=== PATIENT | male | born 1975 | race Caucasian/White ===

== ENCOUNTER 2018-06-03 15:21 | Emergency (ER) | payer MEDICAID, SELFPAY ==
[2018-06-03 15:22] VITALS: BP 174/107; PULSE 104; RESP 16; TEMP 37.6; O2SAT 95; BMI 39.9
--- NOTE | 2018-06-03 15:39 | ED.VISSUMM ---
- ER Visit Summary Date of Service: 06/03/18 Chief Complaint: Dental pain History of Present Illness: The patient is a 42 M worsening pain left lower tooth since yesterday. Status post partial root canal along with wisdom teeth extraction in that area 4 days ago. No fevers. No hot or cold sensitivities. Did run out of his [place] yesterday, had a total of 10 tabs. Has an appointment tomorrow with the dentist. On amoxicillin status post extraction. Took Motrin before work this morning. No history of gastric ulcers or kidney injury. No difficulty swallowing. No dyspnea. Physical Examination: General: Alert and oriented ?3, no acute distress HEENT: Normocephalic, atraumatic. Moist mucosa membranes. Tender to palpation #19, missing #18. No fluctuance. No sublingual edema. Airway patent. Neck: supple, nontender. Cardiovascular: Regular rate and rhythm, no murmurs Respiratory: Normal breath sounds, symmetric, no distress Abdomen: Soft, nontender, nondistended Extremities: Nontender, no edema, pulses intact ?4 Neuro: no focal neurological deficits. Test Results: [] Emergency Department Course and Treatment: Patient nontoxic. Currently on antibiotics. Continue NSAIDs.OARRS report does confirm is 10 tabs from 4 days ago. Additional prescription 10 tabs to use as needed along with continue his NSAIDs. He will keep his dentist appointment tomorrow. Treatment Plan: [] Disposition: Discharge Impression: 1. Dentalgia This note was generated with [employer] dictation software. It may contain incorrect words, spelling, and punctuation that were not noted in review of the chart prior to signing ED Disposition - Plan for ED Patient: Disposition: Home or Assisted Living Chief Complaint: Dental Diagnosis: Dentalgia Instructions: ED Tooth Pain Prescriptions: Hydrocodone Bitart/Apap 5-325 [[place] 5MG-325MG] 1 tablet PO Q6H PRN PRN 3 Days #10 tablet PRN Reason: Pain Referrals: Joaquín Storm MD [Primary Care Provider] - Additional Instructions: Continuing your Motrin, take additional medication as needed. Keep your appointment tomorrow.
--- NOTE | 2018-06-03 15:43 | ED.DCSUM_ITS ---
- ER Visit Summary Date of Service: 06/03/18 Chief Complaint: Dental pain History of Present Illness: The patient is a 42 M worsening pain left lower tooth since yesterday. Status post partial root canal along with wisdom teeth extraction in that area 4 days ago. No fevers. No hot or cold sensitivities. Did run out of his [place] yesterday, had a total of 10 tabs. Has an appointment tomorrow with the dentist. On amoxicillin status post extraction. Took Motrin before work this morning. No history of gastric ulcers or kidney injury. No difficulty swallowing. No dyspnea. Physical Examination: General: Alert and oriented ?3, no acute distress HEENT: Normocephalic, atraumatic. Moist mucosa membranes. Tender to palpation #19, missing #18. No fluctuance. No sublingual edema. Airway patent. Neck: supple, nontender. Cardiovascular: Regular rate and rhythm, no murmurs Respiratory: Normal breath sounds, symmetric, no distress Abdomen: Soft, nontender, nondistended Extremities: Nontender, no edema, pulses intact ?4 Neuro: no focal neurological deficits. Test Results: [] Emergency Department Course and Treatment: Patient nontoxic. Currently on antibiotics. Continue NSAIDs.OARRS report does confirm is 10 tabs from 4 days ago. Additional prescription 10 tabs to use as needed along with continue his NSAIDs. He will keep his dentist appointment tomorrow. Treatment Plan: [] Disposition: Discharge Impression: 1. Dentalgia This note was generated with [employer] dictation software. It may contain incorrect words, spelling, and punctuation that were not noted in review of the chart prior to signing ED Disposition - Plan for ED Patient: Disposition: Home or Assisted Living Chief Complaint: Dental Diagnosis: Dentalgia Instructions: ED Tooth Pain Prescriptions: Hydrocodone Bitart/Apap 5-325 [[place] 5MG-325MG] 1 tablet PO Q6H PRN PRN 3 Days #10 tablet PRN Reason: Pain Referrals: Joaquín Storm MD [Primary Care Provider] - Additional Instructions: Continuing your Motrin, take additional medication as needed. Keep your appointment tomorrow.
[2018-06-03] MEDS: Ibuprofen 600 MG Tablet PO (15:45)
[2018-06-03] MEDS: HYDROcodone Bitartrate/Apap 5/325 Tablet PO (15:45)
[2018-06-03 16:19] VITALS: PULSE 96; RESP 16; O2SAT 97
== END 2018-06-03 16:20 | disposition home or self-care (01) ==
PROVIDERS: Emergency Provider Emergency Medicine; Family Provider Internal Medicine; PCP Internal Medicine
DX: K02.9 Dental caries, unspecified (principal)
CPT/HCPCS: 99283

== ENCOUNTER 2019-02-21 16:15 | Observation (INO) | payer SELFPAY ==
[2019-02-21] VITALS (8 sets, daily range): BP systolic 138–158; BP diastolic 82–93; PULSE 86–101; RESP 16–23; TEMP 36.8–37.3; O2SAT 90–99; BMI 43.0; BMI 39.9
--- NOTE | 2019-02-21 16:28 | EKG12_ITS ---
Test Reason : GENERAL ILLNESS Blood Pressure : / mmHG Vent. Rate : 098 BPM Atrial Rate : 098 BPM P-R Int : 142 ms QRS Dur : 098 ms QT Int : 370 ms P-R-T Axes : 040 -28 051 degrees QTc Int : 472 ms Normal sinus rhythm Moderate voltage criteria for LVH, may be normal variant Poor R-Wave Progression Borderline ECG Confirmed by DANIEL ACOSTA, RYAN ([id number]), magazine editor JUDE ALCARAZ ([id number]) on 02/25/2019 1:40:18 PM Referred By: Nicole Amador Confirmed By:RYAN SANCHEZ MD
--- NOTE | 2019-02-21 16:34 | ED.VISSUMM ---
- ER Visit Summary Date of Service: 02/21/19 Chief Complaint: Vomiting and overheated History of Present Illness: The patient is a 43 M who denies any significant medical history. He tells me that today he was in his usual state of health. He went to [place] [employer] and [place] lunch. Afterwards he took the kids and attempted to climb a steep hill. He states he was getting exhausted lightheaded short of breath he was eventually able to get back down but not well behind the children. When he got back to the [facility] he ended up vomiting. Family states he seemed confused and was not acting his normal self. EMS notes his blood sugar was elevated to 300 range. He denies a history of diabetes. He states he quit smoking in May. Since that time he has had dyspnea and phlegm production. While exerting himself denies any chest pain. Physical Examination: Afebrile noted slight tachycardia at 101 stable blood pressure Gen: Well-nourished well-developed obese Head: Normocephalic atraumatic Eyes: Perrl EOMI ENT: TMs clear no rhinorrhea moist mucous membranes Neck: Supple no lymphadenopathy no JVD nontender CVS: Regular rate tachycardic rhythm no murmurs normal S1-S2 Respiratory: No distress clear to auscultation bilaterally chest nontender Abdomen: Soft nontender nondistended normal bowel sounds no masses Back: Nontender Extremity: Nontender no edema Skin: Normal color no rash Neuro: alert orientated ?3 CN II-XII intact normal strength sensation Psych: Normal affect normal mood Test Results: Prehospital EKGs were reviewed. EKG done here in the emergency department demonstrates a sinus rhythm at a rate of 98. There is no ectopy. No concerning ST segments. CBC is normal. Chemistry showed a glucose of 446. Liver enzymes slightly elevated with total bilirubin of 1.2 direct bilirubin of 0.56 AST of 313 ALT of 186 alk phos of 114. Lactic acid slightly elevated 3.4 total body CK at 865 and troponin is negative. Chest x-ray is also negative for acute findings. Emergency Department Course and Treatment: Patient received 2 L of IV fluids. I believe the patient should be admitted. Patient declines admission. He states there is things he needs to do and he does not have health insurance. I strongly advised the patient to reconsider as I feel he is making a bad decision but he appears to have capacity to make this decision. He does not have anybody to follow-up with stating that he is going to go to urgent care to follow-up. I will refer him to a primary care physician. As far as the mild rhabdo and the elevated lactic acid resolved was likely due to his exertion and the degree of heat exhaustion. He needs to drink fluids until his urine is nice and clear. As far as the new onset diabetes. Ideally metformin would be an option for him. I do not wish him to start this medication until he is properly hydrated given the side effect profile of metformin particularly the elevated lactic acid. Patient understands this. He is of the understanding that he may return at any time. When we went to sign him out AMA he now states that he does not wish to sign out AMA that he would like to be admitted. Impression: 1. New onset diabetes 2. Mild rhabdomyolysis 3. Heat exhaustion 4. Elevated lactic acid 5. Critical care time 35 minutes This note was generated with [employer] dictation software. It may contain incorrect words, spelling, and punctuation that were not noted in review of the chart prior to signing Capacity - Capacity Assessment Tool Can the patient make a choice & communicate that choice?: Yes Can the patient understand benefits, risks and alternatives?: Yes Can the patient make a logical, rational choice?: Yes Is the choice the patient makes consistent w/ their values?: Yes Is there an impending, emergent risk to the patient?: Yes Does the patient have an Advance Directive?: No Is there a Surrogate Available?: No i.e. HCPOA: No i.e. close relative (spouse, child, parent, sibling)?: No ED Disposition - Plan for ED Patient: Disposition: Against Medical Advice Instructions: Resources for People with Diabetes, What Is Type 2 Diabetes?, Oral Therapy for Type 2 Diabetes, Rhabdomyolysis Prescriptions: metFORMIN HCl [Glucophage] 500 mg PO BIDCM #28 tab Prescription Printed Referrals: Parisa Verdin [NON-STAFF] - As soon as possible Additional Instructions: Do not start the metformin for at least 24 hours. Please drink enough WATER so that your urine is clear. In your condition metformin can make things worse. This is why you should delay taking it until you are properly hydrated. Please return to the emergency department at any time for repeat evaluation. You have been referred to the [facility]. You do not have to have health insurance to see them. If your diabetes goes untreated you will from it.
--- NOTE | 2019-02-21 16:45 | RAD_ITS ---
STUDY: X-RAY CHEST REASON FOR EXAM: Male, 43 years old. Cough TECHNIQUE: Single frontal view of the chest. COMPARISON: None. FINDINGS: The lungs are clear and expanded. There is no demonstrated pleural abnormality. Normal size heart. Normal mediastinum and terrie. Normal visualized pulmonary arteries. Normal visualized aortic arch and descending thoracic aorta. Normal visualized thoracic spine. Normal visualized ribs, clavicles, and shoulders. There is no demonstrated abnormality of the visualized soft tissue structures of the upper abdomen. RAD/Chest 1 View (Portable) IMPRESSION: Normal x-ray examination of the chest. Electronically Signed: Eyad Salinas MD at 17:49 EDT , Service support ,
[2019-02-21 16:46] LABS: Absolute Lymphocyte Count 1.35 X10^3/ul (0.83-4.51); Basophil# 0.03 X10^3/uL; Basophil% 0.5 % (0-1); Eosinophil# 0.16 X10^3/uL; Eosinophils% 2.6 % (0-5); Hematocrit 44.1 % (40-54); Hemoglobin 15.5 g/dl (13.0-16.5); Lymphocyte # 1.35 X10^3/ul (4.0); Mean Corp Hgb Conc 35.1 g/gl (32-36); Mean Corpuscular Hgb 33.8 pg (27.0-32.0); Mean Corpuscular Volume 96.1 fL (80-94); Mean Platelet Vol. 11.7 fl (6.2-12.0); Monocyte# 0.63 X10^3/uL; Monocyte% 10.3 % (0-10); Neutrophil # 3.95 X10^3/uL (2.7-7.7); Neutrophil % 64.4 % (47-70); POSITIVE COUNT NO; POSITIVE DIFFERENTIAL NO; POSITIVE MORPHOLOGY NO; Platelet Count 139 K/mm3 (150-450); RBC Distribution Width CV 12.9 % (11.6-14.6); Red Blood Count 4.59 M/mm3 (4.6-6.2); White Blood Count 6.1 K/mm3 (4.4-11.0)
[2019-02-21 16:53] LABS: International Normalized Ratio 1.3; Partial Thromboplast Time 29.2 Seconds (24.1-36.2); Prothrombin Time (Protime)PT. 16.3 SECONDS (11.7-14.9)
[2019-02-21] MEDS: 0.9% Normal Saline 1,000 ML 1000 ML IV (16:53)
[2019-02-21 17:00] LABS: AST(SGOT) 313 U/L (15-37); Alanine Aminotransfer ALT/SGPT 186 U/L (16-61); Albumin, Serum 3.5 g/dL (3.2-5.0); Alkaline Phosphatase 114 U/L (45-117); Anion Gap 7 (5-15); BUN 9 mg/dL (7-18); BUN/Creat Ratio 7.2 RATIO (10-20); Bilirubin, Direct 0.56 mg/dL (0.00-0.30); Calcium,Total 8.1 mg/dL (8.5-10.1); Chloride 100 mmol/L (98-107); Creatinine, Serum 1.25 mg/dL (0.70-1.30); EST Glomerular Filtration Rate 67 mL/min (>60); Est Glom Filt Rate - Afr Amer 81 mL/min (>60); Estimated Creatinine Clearance 77.87 ml/min; Globulin 4.1 g/dL (2.2-4.2); Glucose 446 mg/dL (74-106); Lipase 300 U/L (73-393); Potassium 4.2 mmol/L (3.5-5.1); Protein, Total 7.6 g/dL (6.4-8.2); Sodium Level 134 mmol/L (136-145)
[2019-02-21 17:09] LABS: CPK Total, Creatine Kinase 865 U/L (39-308)
[2019-02-21 17:21] LABS: Lactic Acid 3.4 mmol/L (0.4-2.0)
[2019-02-21 17:22] LABS: Mucous, Urine 0 SEEN /hpf (<or=2+); Red Blood Cells-Urine 0 SEEN /hpf (0-5); Squamous Epithelial Cells - UA 0 SEEN /hpf (0-5)
[2019-02-21 17:25] LABS: Color, Urine Yellow (Yellow); Glucose, Dipstick 1000 mg/dl (Normal); Ketone-Dipstick 5 mg/dl (Negative); Leukocyte Esterase-Dipstick Negative /ul (Negative); Nitrite-Dipstick Negative (Negative); Occult Blood-Urine Negative /ul (Negative); Protein-Dipstick Negative (Negative); Specific Gravity, Urine 1.015 (1.002-1.030); Urine Bilirubin Dipstick Negative (Negative); Urine Clarity Clear (Clear); Urine Urobilinogen 1 mg/dl (Normal)
--- NOTE | 2019-02-21 17:25 | ED.RN ---
lactic acid reported from lab. dr limon notified
[2019-02-21 17:52] LABS: Bacteria RARE /hpf (None Seen); White Blood Cells 0-5 SEEN /hpf (0-5)
[2019-02-21] MEDS: 0.9% Normal Saline 1,000 ML 999 ML IV (17:56)
--- NOTE | 2019-02-21 18:54 | HP.PCM_ITS ---
History of Present Illness Date of Admission: 02/21/19 Chief Complaint: Altered mental status, weakness The patient is a 43 year old M with a past medical history of alcohol and nicotine abuse. He was admitted through the ED on 02/21/2019 with a complaint of altered mental status and weakness. Patient was out with his sister and her family to celebrate Day. He was running around with her children but subsequently started feeling very tired and weak and sister said he looked like he was shaking. He was confused and incoherent for a bit. Family called the EMS and he was brought in. Patient denied any history of fever or chills but admitted to urinating very frequently and drinking lots of water. He denies any chest pain or palpitations, dizziness, but admitted to vomiting with onset of symptoms. Review of symptoms of otherwise negative. On admission, temperature was 99.2 Fahrenheit with respiratory rate of 20 and mildly elevated blood pressure of 158/83. Labs are significant for glucose of 446 with lactic acid of 3.4 and total bilirubin of 1.2 feels mainly a direct bilirubinemia. AST and ALT were also mildly elevated. Total CPK was mildly elevated at 865 initial troponin was less than 0.015. Chest x-ray showed no acute cardiopulmonary process. EKG showed no acute ST changes. CBC was also unremarkable. He has been admitted to be managed for hypoglycemia and a newly diagnosed diabetic as well as mild rhabdomyolysis. Past Medical History Allergies No Known Allergies Allergy (Verified 02/21/19 16:20) Home Medications: Ambulatory Orders Medication Instructions Recorded metFORMIN HCl [Glucophage] 500 mg PO BIDCM #28 tab 02/21/19 Surgical History: no surgical history Psychiatric History: No pertinent psych hx Lives: Spouse/ Significant Other Smoking Status: Former smoker - quit May 2018 Alcohol: Heavy - drinks >1 pack of 24 oz cans daily - *Family History Maternal History Items: Heart Disease Review of Systems Constitutional: Reports: Weakness, Fatigue. Denies: Anorexia, Chills, Fever Eyes: Denies: Blurred vision HEENT: Denies: Head Aches, Sinus Congestion, Sinus Drainage Cardiovascular: Denies: Chest Pain, Chest Tightness, Palpitations Respiratory: Denies: Cough, Shortness of Breath, Shortness of breath at rest, Shortness of breath upon exertion, Sputum production Gastrointestinal: Denies: Abdominal Pain, Nausea, Vomiting Genitourinary: Reports: Frequency, - - polyuria. Denies: Dysuria, Hematuria, Incontinence, Nocturia, Retention, Urgency Musculoskeletal: Denies: Joint Pain, Joint Tenderness Skin: Denies: Rash, Wounds Neurological: Denies: Numbness, Tingling, Focal weakness Psychiatric: Denies: Anxiety, Depression, Homicidal Ideations, Suicidal Ideations Hematologic/ Lymphatic: Denies: Easy Bruising, Easy Bleeding VTE Information - Inpt Only VTE Present on Admission: No VTE Pharm Prophylaxis ordered?: Yes - Physical Exam General: Alert, Oriented x3, Cooperative, No apparent distress, - - obese HEENT: Atraumatic, PERRLA, EOMI, Normocephalic Oral: Dry Mucosa Neck: Supple, No JVD, Negative Carotid Bruits Lungs: Clear to auscultation, Normal air movement Cardiovascular: Regular rate, Regular Rhythm, Normal S1, Normal S2, No murmurs Abdomen: Bowel Sounds Present, Soft, Non Tender, Non-Distended, No Hepato- splenomegaly Extremities: No clubbing, No cyanosis, No edema, Capillary Refill Less than 3 Seconds Skin: No rashes, No breakdown Musculoskeletal: No Tenderness to Palpation of Joints or Extremities Lymphatic: No Cervical, Supraclavicular, or Inguinal Adenopathy Neurological: Cranial nerves II-XII grossly intact, Neuro grossly intact, Motor Exam 5/5 strength throughout Psych/Mental Status: Normal Affect, Appropriate, Alert and oriented to time, place, person, mood and affect Vital Signs Temp Pulse Resp BP Pulse Ox 99.2 F H 90 18 149/88 H 98 02/21/19 16:16 02/21/19 17:46 02/21/19 17:46 02/21/19 17:46 02/21/19 17:46 Oxygen Delivery Method Room Air Weight: 300 lb Body Mass Index (BMI) 43.0 Laboratory Tests Past 24 Hrs 02/21/19 02/21/19 02/21/19 16:30 16:30 16:30 WBC 6.1 RBC 4.59 L Hgb 15.5 Hct 44.1 MCV 96.1 H MCH 33.8 H MCHC 35.1 RDW 12.9 RDW Differential 45.0 H Plt Count 139 L MPV 11.7 Immature Gran % (Auto) 0.200 Neut % (Auto) 64.4 Lymph % (Auto) 22.0 [place] % (Auto) 10.3 H Eos % (Auto) 2.6 Baso % (Auto) 0.5 Absolute Neuts (auto) 4.0 Absolute Lymphs (auto) 1.35 Total Counted Not Reportable PT 16.3 H INR 1.3 APTT 29.2 Sodium 134 L Potassium 4.2 Chloride 100 Carbon Dioxide 27.0 Anion Gap 7 BUN 9 Creatinine 1.25 Estim Creat Clear Calc 77.87 Est GFR (MDRD) Af Amer 81 Est GFR (MDRD) Non-Af 67 BUN/Creatinine Ratio 7.2 L Glucose 446 H Lactic Acid Calcium 8.1 L Total Bilirubin 1.20 H Direct Bilirubin 0.56 H AST 313 H ALT 186 H Alkaline Phosphatase 114 Total Creatine Kinase Troponin I < 0.015 Total Protein 7.6 Albumin 3.5 Globulin 4.1 Lipase 300 Urine Color Urine Clarity Urine pH Ur Specific [place] Urine Protein Urine Glucose (UA) Urine Ketones Urine Occult Blood Urine Nitrite Urine Bilirubin Urine Urobilinogen Ur Leukocyte Esterase Urine RBC Urine WBC Ur Squamous Epith Cells Urine Bacteria Urine Mucus 02/21/19 02/21/19 02/21/19 16:30 16:30 17:16 WBC RBC Hgb Hct MCV MCH MCHC RDW RDW Differential Plt Count MPV Immature Gran % (Auto) Neut % (Auto) Lymph % (Auto) [place] % (Auto) Eos % (Auto) Baso % (Auto) Absolute Neuts (auto) Absolute Lymphs (auto) Total Counted PT INR APTT Sodium Potassium Chloride Carbon Dioxide Anion Gap BUN Creatinine Estim Creat Clear Calc Est GFR (MDRD) Af Amer Est GFR (MDRD) Non-Af BUN/Creatinine Ratio Glucose Lactic Acid 3.4 H Calcium Total Bilirubin Direct Bilirubin AST ALT Alkaline Phosphatase Total Creatine Kinase 865 H Troponin I Total Protein Albumin Globulin Lipase Urine Color Yellow Urine Clarity Clear Urine pH 6.0 Ur Specific [place] 1.015 Urine Protein Negative Urine Glucose (UA) 1000 H Urine Ketones 5 H Urine Occult Blood Negative Urine Nitrite Negative Urine Bilirubin Negative Urine Urobilinogen 1 H Ur Leukocyte Esterase Negative Urine RBC 0 SEEN Urine WBC 0-5 SEEN Ur Squamous Epith Cells 0 SEEN Urine Bacteria RARE Urine Mucus 0 SEEN Diagnostic Data Chest X-Ray 02/21/19 16:45 IMPRESSION: Normal x-ray examination of the chest. Electronically Signed: Eyad Salinas MD at 17:49 EDT , Service support , Assessment/Plan 43-year-old male admitted with a complaint of vomiting and altered mental status and found to have elevated blood glucose and mildly elevated CPK. 1. Hyperglycemia in a newly diagnosed diabetic. * Blood glucose was 446 on admission. Has been having symptoms of polyuria and frequency of urination. * Admit to [facility] with telemetry. * Check A1c. * Start insulin sliding scale. * On account of elevated lactic acid, will hold off on starting metformin now until lactic acid and liver function improves. * Continue hydrating with normal saline * Accu-Cheks before meals at bedtime. * To be started on oral medication or insulin as per A1c once elevated liver enzymes and lactic acid corrects. * check lipid panel * check troponins also in light of obesity and history of smoking * 2. Rhabdomyolysis: mild. CPK is 865. WIll hydrate with IVF and monitor 3. Elevated lactic acid: Lactic acid was 3.4. May be due to dehydration from hyperglycemia. Will hydrate with IV fluids and repeat lactic acid 4. SIRS criteria: * Patient was tachycardic on admission with heart rate of 101 as well as tachypnea with respiratory rate of 20. He also had a mildly elevated temperature of 99.2F * He also had elevated lactic acid of 3.4, therefore meeting criteria for severe sepsis * Though he does meet SIRS criteria for sepsis, I think it is more likely physiologic reaction due to the hyperglycemia and newly diagnosed diabetes. There is no obvious source of infection as UA was negative and chest x-ray showed no acute cardiopulmonary process. * Will order blood cultures but hold off on antibiotics for now. * repeat lactic acid * 5. Elevated liver enzymes. * Total bilirubin was 1.2 with direct bilirubin of 0.56 and AST of 3.13 as well as ALT of 1.86. * His history of chronic alcoholism may play a role here as well. Will monitor and trend. 6. Chronic alcoholism. * Patient drinks very heavily and drinks at least a sixpack of 24 ounce cans daily. * Last drink was early this morning when he drank about 6 cans. * He has been through detox before which was last year but he started drinking again on account of family problems. * Will put on alcohol withdrawal protocol with Ativan. * DVT prophylaxis: Heparin GI prophylaxis: Pantoprazole. Code Visit OBSV E&M: 46178 Initial observation care L3
[2019-02-21] MEDS: 0.9% Normal Saline 1,000 ML 200 ML IV ×2 (19:40→22:28)
[2019-02-21 20:39] LABS: Reflex Lactate? Y
[2019-02-21 21:03] LABS: Cholesterol 127 mg/dL (200); Hemoglobin A1c 8.5 % (4.2-6.3); High Density Lipoprotein 18 mg/dL; Triglycerides 242 mg/dL; Very Low Density Lipoprotein 48 mg/dL (5-40)
[2019-02-21 21:53] LABS: Lactic Acid 2.2 mmol/L (0.4-2.0)
[2019-02-21] MEDS: Insulin Lispro 100 UNIT/ML INSULN.PEN SC (22:31)
[2019-02-22] MEDS: Insulin Lispro 100 UNIT/ML INSULN.PEN SC ×3 (01:36→10:18)
[2019-02-22 01:39] VITALS: BP 139/80; PULSE 70; RESP 18; TEMP 37; O2SAT 96
[2019-02-22 01:52] VITALS: PULSE 79
[2019-02-22] MEDS: 0.9% Normal Saline 1,000 ML 200 ML IV (03:24)
[2019-02-22 05:33] VITALS: PULSE 63
[2019-02-22 05:47] VITALS: BP 132/91; PULSE 68; RESP 18; TEMP 36.7; O2SAT 96
[2019-02-22 07:10] LABS: Absolute Lymphocyte Count 1.01 X10^3/ul (0.83-4.51); Absolute Neutrophil Count 2.3 X10^3/uL (2.0-7.7); Basophil# 0.02 X10^3/uL; Basophil% 0.5 % (0-1); Eosinophil# 0.11 X10^3/uL; Eosinophils% 2.8 % (0-5); Hematocrit 42.6 % (40-54); Hemoglobin 14.5 g/dl (13.0-16.5); Lymphocyte # 1.01 X10^3/ul (4.0); Lymphocyte % 25.7 % (19-41); Mean Corpuscular Hgb 32.7 pg (27.0-32.0); Mean Corpuscular Volume 96.2 fL (80-94); Mean Platelet Vol. 11.7 fl (6.2-12.0); Monocyte# 0.47 X10^3/uL; Neutrophil # 2.32 X10^3/uL (2.7-7.7); POSITIVE COUNT NO; POSITIVE DIFFERENTIAL NO; POSITIVE MORPHOLOGY NO; Platelet Count 93 K/mm3 (150-450); RBC Distribution Width CV 12.8 % (11.6-14.6); RBC Distribution Width SD 44.7 fl (35.1-43.9); Red Blood Count 4.43 M/mm3 (4.6-6.2); White Blood Count 3.9 K/mm3 (4.4-11.0)
--- NOTE | 2019-02-22 07:13 | PN_ITS ---
Patient Problems: Active and Suspected Problems Rhabdomyolysis (Acute) Diabetes mellitus, new onset (Acute) Subjective: Patient is a 43-year-old gentleman admitted with altered mental status and vomiting. Patient was found to have newly diagnosed diabetes mellitus type 2. He was also found to have elevated CPK consistent with rhabdomyolysis admitted to regular nursing floor for further management Objective: GENERAL: cooperative HEENT: Atraumatic; moist oral mucosa EYES; Anicteric, Normal Conjunctiva NECK; supple, normal thyroid, no distended JVD. RESPIRATORY: Diminished to auscultation bilaterally, CARDIOVASCULAR: Regular S1 S2, no audible murmurs GI: soft, non-tender, normoactive bowel sounds, : No Renal angle tenderness; EXTREMITIES: No edema, no clubbing, no cyanosis. MUSCULOSKELETAL: No Joint Tenderness; no muscle waisting NEURO: Awake; no lateralizing signs. SKIN: No Rash PSYCH; Normal affect Vitals/I&O's: Vital Signs Temp Pulse Resp BP Pulse Ox 98.1 F 68 18 132/91 H 96 02/22/19 05:47 02/22/19 05:47 02/22/19 05:47 02/22/19 05:47 02/22/19 05:47 Oxygen Flow Rate (L/min) 2 Oxygen Delivery Method Room Air Weight: 127.941 kg Body Mass Index (BMI) 39.9 Intake and Output for Last 24 Hours 02/20/19 02/21/19 02/22/19 23:59 23:59 23:59 Intake Total 1447 / 1447 1283 / 1283 Output Total 700 / 700 1350 / 1350 Balance 747 / 747 -67 / -67 Laboratory Results 02/21/19 16:30: WBC 6.1, RBC 4.59 L, Hgb 15.5, Hct 44.1, MCV 96.1 H, MCH 33.8 H, MCHC 35.1, RDW 12.9, RDW Differential 45.0 H, Plt Count 139 L, MPV 11.7, Immature Gran % (Auto) 0.200, Neut % (Auto) 64.4, Lymph % (Auto) 22.0, Ward % (Auto) 10.3 H, Eos % (Auto) 2.6, Baso % (Auto) 0.5, Absolute Neuts (auto) 4.0, Absolute Lymphs (auto) 1.35, Total Counted Not Reportable 02/21/19 16:30: PT 16.3 H, INR 1.3, APTT 29.2 02/21/19 16:30: Sodium 134 L, Potassium 4.2, Chloride 100, Carbon Dioxide 27.0, Anion Gap 7, BUN 9, Creatinine 1.25, Estim Creat Clear Calc 77.87, Est GFR (MDRD) Af Amer 81, Est GFR (MDRD) Non-Af 67, BUN/Creatinine Ratio 7.2 L, Glucose 446 H, Calcium 8.1 L, Total Bilirubin 1.20 H, Direct Bilirubin 0.56 H, AST 313 H , ALT 186 H, Alkaline Phosphatase 114, Troponin I < 0.015, Total Protein 7.6, Albumin 3.5, Globulin 4.1, Lipase 300 02/21/19 16:30: Lactic Acid 3.4 H 02/21/19 16:30: Total Creatine Kinase 865 H 02/21/19 17:16: Urine Color Yellow, Urine Clarity Clear, Urine pH 6.0, Ur Specific [place] 1.015, Urine Protein Negative, Urine Glucose (UA) 1000 H, Urine Ketones 5 H, Urine Occult Blood Negative, Urine Nitrite Negative, Urine Bilir ubin Negative, Urine Urobilinogen 1 H, Ur Leukocyte Esterase Negative, Urine RBC 0 SEEN, Urine WBC 0-5 SEEN, Ur Squamous Epith Cells 0 SEEN, Urine Bacteria RARE, Urine Mucus 0 SEEN 02/21/19 20:24: Hemoglobin A1c 8.5 H 02/21/19 20:24: Triglycerides 242 H, Cholesterol 127, LDL Cholesterol 61, VLDL Cholesterol 48 H, HDL Cholesterol 18 L 02/21/19 21:02: Lactic Acid 2.2 H 02/22/19 06:29: WBC 3.9 L, RBC 4.43 L, Hgb 14.5, Hct 42.6, MCV 96.2 H, MCH 32.7 H, MCHC 34.0, RDW 12.8, RDW Differential 44.7 H, Plt Count 93 L, MPV 11.7, Immature Gran % (Auto) 0.000, Neut % (Auto) 59.0, Lymph % (Auto) 25.7, Ward % (Auto) 12.0 H, Eos % (Auto) 2.8, Baso % (Auto) 0.5, Absolute Neuts (auto) 2.3, Absolute Lymphs (auto) 1.01, Total Counted Not Reportable 02/22/19 06:29: Sodium Pending, Potassium Pending, Chloride Pending, Carbon Dioxide Pending, Anion Gap Pending, BUN Pending, Creatinine Pending, Est GFR (MDRD) Af Amer Pending, Est GFR (MDRD) Non-Af Pending, BUN/Creatinine Ratio Pending, Glucose Pending, Calcium Pending, Total Bilirubin Pending, AST Pending, ALT Pending, Alkaline Phosphatase Pending, Total Protein Pending, Albumin P ending Current Medications Dextrose (D50w Syringe) 0 gm IV X1 PRN; Protocol PRN Reason: Hypoglycemia Enoxaparin Sodium (Lovenox) 40 mg SC DAILY@1000 ÁNGEL Folic Acid (Folic Acid) 1 mg PO DAILY@0800 [facility] Stop: 02/24/19 08:01 Glucagon () 1 mg IM .X1 PRN PRN Reason: Hypoglycemia Sodium Chloride () 1,000 mls @ 200 mls/hr IV .Q5H [facility] Stop: 02/22/19 10:38 Last Admin: 02/22/19 03:24 Dose: 200 mls/hr Documented by: Insulin Glargine (Lantus ([facility])) 10 units SC QHS [facility] Last Admin: 02/21/19 22:33 Dose: 10 u Documented by: Insulin Human Lispro (Humalog Kwikpen ([facility])) 0 unit SC Q4 [facility]; Protocol Last Admin: 02/22/19 05:45 Dose: 3 u Documented by: Lorazepam (Ativan) 2 mg PO Q2H PRN PRN; Protocol PRN Reason: CIWA score > 8 but <15 Lorazepam (Ativan) 2 mg PO UD PRN; Protocol PRN Reason: CIWA score >/=15. Lorazepam (Ativan) 2 mg IV Q2H PRN PRN; Protocol PRN Reason: CIWA score > 8 but <15 Lorazepam (Ativan) 2 mg IV UD PRN; Protocol PRN Reason: CIWA score >/=15. Multivitamins/Minerals (Multivitamin With Minerals) [facility] Sodium Chloride () 10 - 40 ml IV UD PRN PRN Reason: SALINE FLUSH Thiamine HCl (Vitamin B1) 100 mg PO BIDCM [facility] Stop: 02/24/19 17:01 Medical Necessity - Tobacco Use Smoking Status: Former smoker Assessment/Plan All Active Problems Rhabdomyolysis (Acute) Diabetes mellitus, new onset (Acute) Patient is a 43-year-old gentleman admitted with altered mental status and vomiting. Patient was found to have newly diagnosed diabetes mellitus type 2. He was also found to have elevated CPK consistent with rhabdomyolysis admitted to regular nursing floor for further management 1. New onset diabetes mellitus type 2 presenting with hyperglycemia admitted to regular nursing floor management hydration, initiation of long-acting insulin as well as Accu-Cheks before meals and at bedtime with sliding scale coverage. Consultation was placed to diabetic education service 2. Mild rhabdomyolysis CPK level on admission was 865 started on IV hydration with monitoring 3. Lactic acidosis attributed to patient diabetes as well as chronic alcohol abuse patient did not have any evidence of infection 4. Acute alcoholic hepatitis. Patient was found to have elevated transaminases with AST of 313 and ALT of 186 consistent with chronic alcohol use 5. Chronic alcohol use placed on DT precautions counseled on cessation 6. Suspected gastritis patient placed on PPI 7. DVT prophylaxis: Heparin Code Visit OBSV E&M: 71326 Subsequent observation care L3
[2019-02-22 07:42] LABS: ALB/GLOB Ratio 0.9 RATIO (0.9-2.4); AST(SGOT) 174 U/L (15-37); Alanine Aminotransfer ALT/SGPT 139 U/L (16-61); Albumin, Serum 3.1 g/dL (3.2-5.0); Alkaline Phosphatase 121 U/L (45-117); Anion Gap 7 (5-15); BUN 7 mg/dL (7-18); BUN/Creat Ratio 8.8 RATIO (10-20); Calcium,Total 7.8 mg/dL (8.5-10.1); Chloride 103 mmol/L (98-107); Creatinine, Serum 0.79 mg/dL (0.70-1.30); EST Glomerular Filtration Rate 113 mL/min (>60); Est Glom Filt Rate - Afr Amer 136 mL/min (>60); Estimated Creatinine Clearance 123.21 ml/min; Globulin 3.6 g/dL (2.2-4.2); Glucose 211 mg/dL (74-106); Potassium 3.8 mmol/L (3.5-5.1); Protein, Total 6.7 g/dL (6.4-8.2); Sodium Level 140 mmol/L (136-145)
[2019-02-22 07:54] VITALS: PULSE 68
--- NOTE | 2019-02-22 08:04 | DCINST_ITS ---
You will use the following diet at home:: Calorie/Carbohydrate Controlled (specify 1200, 1400, etc) - 1800 Your food should be the consistency of: Regular Discharge Activity: Return to Normal Activity Instructions: Resources for People with Diabetes, What Is Type 2 Diabetes?, Oral Therapy for Type 2 Diabetes, Rhabdomyolysis Allergies/Adverse Reactions: Allergies No Known Allergies Allergy (Verified 02/21/19 16:20) Medications to take at Discharge Insulin Glargine [Lantus SoloStar Pen] 10 units SUBCUT QHS #6 pen 02/22/19 Metformin HCl 1,000 mg PO BID #120 tab 02/22/19 Pantoprazole Sodium [Protonix] 40 mg PO DAILY #30 tab 02/22/19 The following prescriptions were given: Insulin Glargine [Lantus SoloStar Pen] 10 units SUBCUT QHS #6 pen Prescription Printed Metformin HCl 1,000 mg PO BID #120 tab Prescription Printed Pantoprazole Sodium [Protonix] 40 mg PO DAILY #30 tab Prescription Printed Primary Care Physician: Parisa Verdin [NON-STAFF] - As soon as possible Please follow up with your Primary Care Physician in: in 5-7 days Test Results: Test results from this visit will be discussed in further detail at your follow- up appointment, if applicable. Proposed Discharge Date: 02/22/19
--- NOTE | 2019-02-22 08:07 | PCM.DC.SUM ---
Discharge Date and Diagnosis - Problem List Patient Problems: Active and Suspected Problems Rhabdomyolysis (Acute) Diabetes mellitus, new onset (Acute) Date of Admission: 02/21/19 Date of Discharge: 02/22/19 - Primary Discharge Diagnosis Active and Suspected Problems Rhabdomyolysis (Acute) Diabetes mellitus, new onset (Acute) - Secondary Discharge Diagnosis Chronic Problems Alcohol abuse (Chronic) Obesity (Chronic) Hospital Course and Treatment Summary of Care Provided: Patient is a 43-year-old gentleman admitted with altered mental status and vomiting. Patient was found to have newly diagnosed diabetes mellitus type 2. He was also found to have elevated CPK consistent with rhabdomyolysis admitted to regular nursing floor for further management 1. New onset diabetes mellitus type 2 presenting with hyperglycemia admitted to regular nursing floor management hydration, initiation of long-acting insulin as well as Accu-Cheks before meals and at bedtime with sliding scale coverage. Consultation was placed to diabetic education service patient condition did improve at the admission he requested to be discharged prescription was written for insulin as well as metformin. Patient abdomen does not have any primary care physician he promised to call the [facility] in [place] establish a relationship with a primary care physician 2. Mild rhabdomyolysis CPK level on admission was 865 started on IV hydration with monitoring 3. Lactic acidosis attributed to patient diabetes as well as chronic alcohol abuse patient did not have any evidence of infection 4. Acute alcoholic hepatitis. Patient was found to have elevated transaminases with AST of 313 and ALT of 186 consistent with chronic alcohol use 5. Chronic alcohol use placed on DT precautions counseled on cessation 6. Suspected gastritis patient placed on PPI 7. DVT prophylaxis: Heparin Patient Problems: Active and Suspected Problems Rhabdomyolysis (Acute) Diabetes mellitus, new onset (Acute) - Physical Exam General: Alert, No apparent distress Neck: Supple Lungs: Clear to auscultation Cardiovascular: Regular rate, Regular Rhythm Psych/Mental Status: Normal Affect Vital Signs Temp Pulse Resp BP Pulse Ox 98.1 F 68 18 132/91 H 96 02/22/19 05:47 02/22/19 07:54 02/22/19 05:47 02/22/19 05:47 02/22/19 05:47 Oxygen Flow Rate (L/min) 2 Oxygen Delivery Method Room Air Weight: 127.941 kg Body Mass Index (BMI) 39.9 Intake and Output for Last 24 Hours 02/20/19 02/21/19 02/22/19 23:59 23:59 23:59 Intake Total 1447 / 1447 1283 / 1283 Output Total 700 / 700 1350 / 1350 Balance 747 / 747 -67 / -67 Laboratory Tests Past 24 Hrs 02/21/19 02/21/19 02/21/19 16:30 16:30 16:30 WBC 6.1 RBC 4.59 L Hgb 15.5 Hct 44.1 MCV 96.1 H MCH 33.8 H MCHC 35.1 RDW 12.9 RDW Differential 45.0 H Plt Count 139 L MPV 11.7 Immature Gran % (Auto) 0.200 Neut % (Auto) 64.4 Lymph % (Auto) 22.0 [place] % (Auto) 10.3 H Eos % (Auto) 2.6 Baso % (Auto) 0.5 Absolute Neuts (auto) 4.0 Absolute Lymphs (auto) 1.35 Total Counted Not Reportable PT 16.3 H INR 1.3 APTT 29.2 Sodium 134 L Potassium 4.2 Chloride 100 Carbon Dioxide 27.0 Anion Gap 7 BUN 9 Creatinine 1.25 Estim Creat Clear Calc 77.87 Est GFR (MDRD) Af Amer 81 Est GFR (MDRD) Non-Af 67 BUN/Creatinine Ratio 7.2 L Glucose 446 H Hemoglobin A1c Lactic Acid Calcium 8.1 L Total Bilirubin 1.20 H Direct Bilirubin 0.56 H AST 313 H ALT 186 H Alkaline Phosphatase 114 Total Creatine Kinase Troponin I < 0.015 Total Protein 7.6 Albumin 3.5 Globulin 4.1 Albumin/Globulin Ratio Triglycerides Cholesterol LDL Cholesterol VLDL Cholesterol HDL Cholesterol Lipase 300 Urine Color Urine Clarity Urine pH Ur Specific [place] Urine Protein Urine Glucose (UA) Urine Ketones Urine Occult Blood Urine Nitrite Urine Bilirubin Urine Urobilinogen Ur Leukocyte Esterase Urine RBC Urine WBC Ur Squamous Epith Cells Urine Bacteria Urine Mucus 02/21/19 02/21/19 02/21/19 16:30 16:30 17:16 WBC RBC Hgb Hct MCV MCH MCHC RDW RDW Differential Plt Count MPV Immature Gran % (Auto) Neut % (Auto) Lymph % (Auto) [place] % (Auto) Eos % (Auto) Baso % (Auto) Absolute Neuts (auto) Absolute Lymphs (auto) Total Counted PT INR APTT Sodium Potassium Chloride Carbon Dioxide Anion Gap BUN Creatinine Estim Creat Clear Calc Est GFR (MDRD) Af Amer Est GFR (MDRD) Non-Af BUN/Creatinine Ratio Glucose Hemoglobin A1c Lactic Acid 3.4 H Calcium Total Bilirubin Direct Bilirubin AST ALT Alkaline Phosphatase Total Creatine Kinase 865 H Troponin I Total Protein Albumin Globulin Albumin/Globulin Ratio Triglycerides Cholesterol LDL Cholesterol VLDL Cholesterol HDL Cholesterol Lipase Urine Color Yellow Urine Clarity Clear Urine pH 6.0 Ur Specific [place] 1.015 Urine Protein Negative Urine Glucose (UA) 1000 H Urine Ketones 5 H Urine Occult Blood Negative Urine Nitrite Negative Urine Bilirubin Negative Urine Urobilinogen 1 H Ur Leukocyte Esterase Negative Urine RBC 0 SEEN Urine WBC 0-5 SEEN Ur Squamous Epith Cells 0 SEEN Urine Bacteria RARE Urine Mucus 0 SEEN 02/21/19 02/21/19 02/21/19 20:24 20:24 21:02 WBC RBC Hgb Hct MCV MCH MCHC RDW RDW Differential Plt Count MPV Immature Gran % (Auto) Neut % (Auto) Lymph % (Auto) [place] % (Auto) Eos % (Auto) Baso % (Auto) Absolute Neuts (auto) Absolute Lymphs (auto) Total Counted PT INR APTT Sodium Potassium Chloride Carbon Dioxide Anion Gap BUN Creatinine Estim Creat Clear Calc Est GFR (MDRD) Af Amer Est GFR (MDRD) Non-Af BUN/Creatinine Ratio Glucose Hemoglobin A1c 8.5 H Lactic Acid 2.2 H Calcium Total Bilirubin Direct Bilirubin AST ALT Alkaline Phosphatase Total Creatine Kinase Troponin I Total Protein Albumin Globulin Albumin/Globulin Ratio Triglycerides 242 H Cholesterol 127 LDL Cholesterol 61 VLDL Cholesterol 48 H HDL Cholesterol 18 L Lipase Urine Color Urine Clarity Urine pH Ur Specific [place] Urine Protein Urine Glucose (UA) Urine Ketones Urine Occult Blood Urine Nitrite Urine Bilirubin Urine Urobilinogen Ur Leukocyte Esterase Urine RBC Urine WBC Ur Squamous Epith Cells Urine Bacteria Urine Mucus 02/22/19 02/22/19 06:29 06:29 WBC 3.9 L RBC 4.43 L Hgb 14.5 Hct 42.6 MCV 96.2 H MCH 32.7 H MCHC 34.0 RDW 12.8 RDW Differential 44.7 H Plt Count 93 L MPV 11.7 Immature Gran % (Auto) 0.000 Neut % (Auto) 59.0 Lymph % (Auto) 25.7 [place] % (Auto) 12.0 H Eos % (Auto) 2.8 Baso % (Auto) 0.5 Absolute Neuts (auto) 2.3 Absolute Lymphs (auto) 1.01 Total Counted Not Reportable PT INR APTT Sodium 140 Potassium 3.8 Chloride 103 Carbon Dioxide 30.0 Anion Gap 7 BUN 7 Creatinine 0.79 Estim Creat Clear Calc 123.21 Est GFR (MDRD) Af Amer 136 Est GFR (MDRD) Non-Af 113 BUN/Creatinine Ratio 8.8 L Glucose 211 H Hemoglobin A1c Lactic Acid Calcium 7.8 L Total Bilirubin 1.20 H Direct Bilirubin AST 174 H ALT 139 H Alkaline Phosphatase 121 H Total Creatine Kinase Troponin I Total Protein 6.7 Albumin 3.1 L Globulin 3.6 Albumin/Globulin Ratio 0.9 Triglycerides Cholesterol LDL Cholesterol VLDL Cholesterol HDL Cholesterol Lipase Urine Color Urine Clarity Urine pH Ur Specific [place] Urine Protein Urine Glucose (UA) Urine Ketones Urine Occult Blood Urine Nitrite Urine Bilirubin Urine Urobilinogen Ur Leukocyte Esterase Urine RBC Urine WBC Ur Squamous Epith Cells Urine Bacteria Urine Mucus Discharge Diet: 1800 Calorie Control Diet Discharge Activity: Return to Normal Activity Home Medications: Medications to take at Discharge Insulin Glargine [Lantus SoloStar Pen] 10 units SUBCUT QHS #6 pen 02/22/19 Metformin HCl 1,000 mg PO BID #120 tab 02/22/19 Pantoprazole Sodium [Protonix] 40 mg PO DAILY #30 tab 02/22/19 Following Prescrptions Were Given to Patient: Insulin Glargine [Lantus SoloStar Pen] 10 units SUBCUT QHS #6 pen Prescription Printed Metformin HCl 1,000 mg PO BID #120 tab Prescription Printed Pantoprazole Sodium [Protonix] 40 mg PO DAILY #30 tab Prescription Printed Primary Care Physician: Parisa Verdin [NON-STAFF] - As soon as possible Please follow up with your Primary Care Physician in: in 5-7 days Patient Instructions: Resources for People with Diabetes, What Is Type 2 Diabetes?, Oral Therapy for Type 2 Diabetes, Rhabdomyolysis Disposition: Home Minutes spent on discharge:: 35 Patient Condition:: Stable Medical Necessity - Tobacco Use Smoking Status: Former smoker Meaningful Use Info Meaningful Use Diagnoses (Choose all that apply): None applicable Code Visit OBSV E&M: 94655 Observation care discharge
[2019-02-22 08:25] VITALS: BP 137/95; PULSE 71; RESP 20; TEMP 36.7; O2SAT 98
[2019-02-22] MEDS: Thiamine Hydrochloride 100 MG Tablet PO (08:30)
[2019-02-22] MEDS: Multivitamins,Ther W-Minerals Tablet 1 TABLET PO (08:30)
[2019-02-22] MEDS: Folic Acid 1 MG Tablet PO (08:30)
[2019-02-22 10:31] LABS: Bedside Glucose 280 mg/dL (70-110)
[2019-02-22 11:55] LABS: Bedside Glucose 278 mg/dL (70-110)
[2019-02-22 11:55] LABS: Bedside Glucose 305 mg/dL (70-110)
[2019-02-22 12:00] LABS: Bedside Glucose 207 mg/dL (70-110)
== END 2019-02-22 10:27 | disposition home or self-care (01) ==
LOC: ED 18:42 → MS3 19:13
PROVIDERS: Admitting Provider Student in an Organized Health Care Education/Training Program; Emergency Provider Emergency Medicine; Referring Provider Student in an Organized Health Care Education/Training Program; Visit Provider Internal Medicine
DX: M62.82 Rhabdomyolysis (principal); E11.9 Type 2 diabetes mellitus without complications; E66.9 Obesity, unspecified; Z68.39 Body mass index [BMI] 39.0-39.9, adult; Z71.3 Dietary counseling and surveillance; Z87.891 Personal history of nicotine dependence; T67.5XXA Heat exhaustion, unspecified, initial encounter; X58.XXXA Exposure to other specified factors, initial encounter; R74.8 Abnormal levels of other serum enzymes; F10.20 Alcohol dependence, uncomplicated
CPT/HCPCS: 36415; 71045; 80048; 80053; 80061; 80076; 81001; 82550; 82962; 83036; 83605; 83690; 84484; 85025; 85610; 85730; 87040; 93005; 96360; 96361; 97802; 99218; 99285; J7030; A4216; G0378

== ENCOUNTER 2020-04-21 15:34 | Inpatient (IN) | payer MEDICAID, SELFPAY ==
[2019-02-21 19:48] VITALS: BMI 39.9
[2020-04-21 15:34] VITALS: BP 153/106; PULSE 88; RESP 18; TEMP 36.3; O2SAT 92; BMI 35.6
--- NOTE | 2020-04-21 15:50 | EKG12_ITS ---
Test Reason : DETOX Blood Pressure : / mmHG Vent. Rate : 090 BPM Atrial Rate : 090 BPM P-R Int : 154 ms QRS Dur : 100 ms QT Int : 366 ms P-R-T Axes : 030 -18 038 degrees QTc Int : 447 ms Normal sinus rhythm Normal ECG Confirmed by ELIZABET ACOSTA, YAO ([id number]), reflow operator JUDE ALCARAZ ([id number]) on 04/23/2020 10:54:12 AM Referred By: SABINO Confirmed By:AYO MCNEAL MD
--- NOTE | 2020-04-21 15:51 | ED.DCSUM_ITS ---
History of Present Illness Chief Complaint: Substance Abuse Narrative: Patient is a 44-year-old male who was brought in by a friend for alcohol detox. History is limited due to the patient's severe alcohol intoxication currently. He initially reported to me that he does not know why he is here and he does not want to be here. The friend who is with him then stated that he wants alcohol detox. I asked if this is something the patient wanted and he stated yes. He states that he was drinking beer but more recently he is drinking vodka. He was unable to clarify his daily intake. He states he drinks to help with his chronic low back pain. Friend is concerned because he is not taking care of himself or taking his daily medications. Past Medical History - Allergies and Home Meds Allergies/Adverse Reactions: Allergies No Known Allergies Allergy (Verified 04/21/20 15:37) Primary Care Physician: Care Physician,No Primary [Primary Care Provider] - Past Medical History: - - Diabetes Surgical History: no surgical history Smoking Status: Current some day smoker - Family History Maternal Family History: Reports: Heart Disease Review of Systems ROS: Unable to Obtain Physical Exam Vital Signs/Narrative: Vital Signs Temp Pulse Resp BP Pulse Ox 04/21/20 15:34 97.4 F L 88 18 153/106 H 92 Inital Vital Signs reviewed: Yes General: Well nourished, Obese Head: Normocephalic Eyes: EOMI ENT: Moist mucous membranes Neck: Supple Cardiovascular: Regular rate, Regular rhythm Respiratory: No distress, CTA bilaterally Abdomen: Soft, Nontender, Nondistended Skin: Normal color Neurological: Alert, - - Patient appears clinically intoxicated, slurred speech Psychological: Tearful Diagnostic/Tx/Re-eval Laboratory Results 04/21/20 04/21/20 04/21/20 16:00 16:00 16:00 WBC 8.0 RBC 4.25 L Hgb 15.0 Hct 41.6 MCV 97.9 H MCH 35.3 H MCHC 36.1 H RDW Std Deviation 46.0 H RDW Coeff of Patito 13.0 Plt Count 108 L MPV 11.3 Immature Gran % (Auto) 0.300 Neut % (Auto) 58.6 Lymph % (Auto) 28.6 [place] % (Auto) 8.8 Eos % (Auto) 2.8 Baso % (Auto) 0.9 Absolute Neuts (auto) 4.7 Absolute Lymphs (auto) 2.27 Nucleated RBC % 0 Sodium 139 Potassium 3.9 Chloride 107 Carbon Dioxide 27.0 Anion Gap 5 BUN 6 L Creatinine 0.74 Estim Creat Clear Calc 130.16 Est GFR (MDRD) Af Amer 146 Est GFR (MDRD) Non-Af 120 BUN/Creatinine Ratio 8.1 L Glucose 300 H Calcium 8.1 L Total Bilirubin 1.20 H AST 165 H ALT 116 H Alkaline Phosphatase 99 Total Protein 8.5 H Albumin 3.7 Globulin 4.8 H Albumin/Globulin Ratio 0.8 L Lipase 434 H Urine Opiates Screen Urine Methadone Screen Ur Barbiturates Screen Ur Phencyclidine Scrn Ur Amphetamines Screen U Methamphetamin-MDMA U Benzodiazepines Scrn Urine Cocaine Screen U Cannabinoids Screen Ur Drug Screen Comment Ethyl Alcohol 472.0 H* 04/21/20 16:30 WBC RBC Hgb Hct MCV MCH MCHC RDW Std Deviation RDW Coeff of Patito Plt Count MPV Immature Gran % (Auto) Neut % (Auto) Lymph % (Auto) [place] % (Auto) Eos % (Auto) Baso % (Auto) Absolute Neuts (auto) Absolute Lymphs (auto) Nucleated RBC % Sodium Potassium Chloride Carbon Dioxide Anion Gap BUN Creatinine Estim Creat Clear Calc Est GFR (MDRD) Af Amer Est GFR (MDRD) Non-Af BUN/Creatinine Ratio Glucose Calcium Total Bilirubin AST ALT Alkaline Phosphatase Total Protein Albumin Globulin Albumin/Globulin Ratio Lipase Urine Opiates Screen NEGATIVE Urine Methadone Screen NEGATIVE Ur Barbiturates Screen NEGATIVE Ur Phencyclidine Scrn NEGATIVE Ur Amphetamines Screen NEGATIVE U Methamphetamin-MDMA NEGATIVE U Benzodiazepines Scrn NEGATIVE Urine Cocaine Screen NEGATIVE U Cannabinoids Screen NEGATIVE Ur Drug Screen Comment Ethyl Alcohol - Medical Decision Making Laboratory evaluation as above notable for mild elevation of transaminases. His alcohol level is 470. EKG shows normal sinus rhythm at a rate of 90 with no acute ischemic changes. Patient was discussed with the hospitalist and will be admitted for alcohol dependence and abuse with intent for detox. ED Disposition - Plan for ED Patient: Disposition: Acute Care Hospital [facility] Diagnosis: Alcohol dependence Referrals: Care Physician,No Primary [Primary Care Provider] -
[2020-04-21 16:16] LABS: Absolute Lymphocyte Count 2.27 X10^3/uL (0.83-4.51); Absolute Neutrophil Count 4.7 X10^3/uL (2.0-7.7); Basophil# 0.07 X10^3/uL; Basophil% 0.9 % (0-1); Eosinophil# 0.22 X10^3/uL; Eosinophils% 2.8 % (0-5); Hematocrit 41.6 % (40-54); Lymphocyte # 2.27 X10^3/ul (4.0); Lymphocyte % 28.6 % (19-41); Mean Corp Hgb Conc 36.1 g/dL (32-36); Mean Corpuscular Hgb 35.3 pg (27.0-32.0); Mean Corpuscular Volume 97.9 fL (80-94); Mean Platelet Vol. 11.3 fl (6.2-12.0); Monocyte% 8.8 % (0-10); NRBC Flagged by Analyzer 0 % (0-5); Neutrophil # 4.67 X10^3/uL (2.7-7.7); Neutrophil % 58.6 % (47-70); Platelet Count 108 K/mm3 (150-450); Red Blood Count 4.25 M/mm3 (4.6-6.2)
[2020-04-21 16:32] LABS: ALB/GLOB Ratio 0.8 RATIO (0.9-2.4); AST(SGOT) 165 U/L (15-37); Alanine Aminotransfer ALT/SGPT 116 U/L (16-61); Albumin, Serum 3.7 g/dL (3.2-5.0); Alkaline Phosphatase 99 U/L (45-117); Anion Gap 5 (5-15); BUN 6 mg/dL (7-18); BUN/Creat Ratio 8.1 RATIO (10-20); Calcium,Total 8.1 mg/dL (8.5-10.1); Chloride 107 mmol/L (98-107); Creatinine, Serum 0.74 mg/dL (0.70-1.30); EST Glomerular Filtration Rate 120 mL/min (>60); Est Glom Filt Rate - Afr Amer 146 mL/min (>60); Estimated Creatinine Clearance 130.16 ml/min; Globulin 4.8 g/dL (2.2-4.2); Glucose 300 mg/dL (74-106); Lipase 434 U/L (73-393); Potassium 3.9 mmol/L (3.5-5.1); Protein, Total 8.5 g/dL (6.4-8.2); Sodium Level 139 mmol/L (136-145)
[2020-04-21 17:22] LABS: Amphetamine Urine VISTA NEGATIVE (<1000 ng/mL); Barbiturate Urine VISTA NEGATIVE (< 200 ng/mL); Benzodiazepine Urine VISTA NEGATIVE (< 200 ng/mL); Cocaine Urine VISTA NEGATIVE (< 300 ng/mL); Ecstacy Urine VISTA NEGATIVE (< 500 ng/mL); Methadone Urine VISTA NEGATIVE (< 300 ng/mL); PCP Urine VISTA NEGATIVE (< 25 ng/mL); THC Urine VISTA NEGATIVE (< 50 ng/mL); Vista UDS pH Range 6
--- NOTE | 2020-04-21 17:57 | NURSING ---
ALCOHOL DEPENDENCE AND ABUSE [place] [id number]
--- NOTE | 2020-04-21 18:05 | CM.ED ---
Addendum entered by Qing Adrian 04/21/20 23:30: Voicemail left to Becky at [facility] updating on admission. Original Note: SOCIAL WORK Reason for Consult: Substance Abuse Patient being admitted for alcohol withdrawal management. Nursing in room completing agreement for RAMP. Introduced role and reason for referral. Informed patient this worker will be contacting [facility] and education provided on RAMP. Patient voices no questions or concerns at this time. Call to [facility] Treatment Navigator to update on patient. No answer, unable to leave salvador. Enid Adrian, DIE CASTING MACHINE SETTER, BELT MAKER HELPER
[2020-04-21 18:07] VITALS: BP 135/94; PULSE 85; RESP 18; TEMP 36.7; O2SAT 91
--- NOTE | 2020-04-21 18:29 | PCM.HP.STD ---
Problem List (1) Alcohol withdrawal Status: Acute (2) Alcohol dependence Status: Chronic (3) Rhabdomyolysis Status: Resolved (4) Alcohol abuse Status: Chronic (5) Obesity Status: Chronic (6) Diabetes mellitus, new onset Status: Chronic History of Present Illness Date of Admission: 04/21/20 Chief Complaint: alcohol withdrawal The patient is a 44 year old M presents intoxicated requesting treatment for alcohol withdrawal. Patient's last drink of alcohol was around 2 or 3 this afternoon. Is not experiencing any withdrawal symptoms at this time but states that he wishes to quit alcohol as it has had a significant detrimental effects to his life. Patient has quit alcohol before for couple weeks about 3 years ago willing to resume drinking again. Patient states that he either drinks 1/5 of vodka or drinks several 24 ounce cans of icehouse beer. [] Past Medical History Past Medical History (Chronic Problems): Chronic Problems Alcohol dependence (Chronic) Alcohol abuse (Chronic) Obesity (Chronic) Diabetes mellitus, new onset (Chronic) Allergies No Known Allergies Allergy (Verified 04/21/20 15:37) Home Medications: Ambulatory Orders Medication Instructions Recorded NK 04/21/20 Surgical History: no surgical history Psychiatric History: No pertinent psych hx Smoking Status: Former smoker Tobacco Use: Non-smoker, - Alcohol: Heavy Drugs: None - *Family History Maternal History Items: Heart Disease Review of Systems Constitutional: Denies: Anorexia, Chills, Fever, Night Sweats Eyes: Denies: Blurred vision, Double vision HEENT: Denies: Head Aches, Sinus Congestion, Sinus Drainage Cardiovascular: Denies: Chest Pain, Palpitations Respiratory: Denies: Cough, Shortness of breath at rest, Sputum production Gastrointestinal: Denies: Abdominal Pain, Nausea, Vomiting Genitourinary: Denies: Dysuria Musculoskeletal: Denies: Arm Pain, Back Pain, Foot Pain, Hand Pain Skin: Denies: Rash, Wounds Neurological: Denies: Numbness, Tingling, Focal weakness Psychiatric: Denies: Anxiety, Depression Hematologic/ Lymphatic: Denies: Easy Bruising, Easy Bleeding Comment: All review of systems were negative except as mentioned above in the history of present illness and the other review of systems. VTE Information - Inpt Only VTE Present on Admission: No VTE Mechan Device Prophylaxis: None VTE Pharm Prophylaxis ordered?: No Reason prophylaxis not ordered:: Treatment Not Indicated Patient Problems: Active and Suspected Problems Alcohol withdrawal (Acute) - Physical Exam Vitals/I&O's: Vital Signs Temp Pulse Resp BP Pulse Ox 36.7 C 85 18 135/94 H 91 04/21/20 18:07 04/21/20 18:07 04/21/20 18:07 04/21/20 18:07 04/21/20 18:07 Oxygen Delivery Method Room Air Weight: 114.2 kg Body Mass Index (BMI) 35.6 General: Alert, Cooperative, No apparent distress, - - Became tearful at 1 point. HEENT: Atraumatic, Normocephalic Oral: Moist Mucosa, No Gingival or Mucosal Lesions/ Ulcerations Neck: No Nodes, Thyroid Normal Size and Texture Lungs: Clear to auscultation, Normal air movement, No rhonchi, No wheeze, No rales Cardiovascular: Regular rate, Regular Rhythm, Normal S1, Normal S2, No murmurs Abdomen: Bowel Sounds Present, Soft, Non Tender, Non-Distended, Obese, - - Hepatomegaly approximately 2 fingerbreadths below the costal margin. Unable to appreciate any splenomegaly. Extremities: No edema, No Calf Tenderness Psych/Mental Status: Normal Affect, Appropriate Laboratory Results 04/21/20 16:00: WBC 8.0, RBC 4.25 L, Hgb 15.0, Hct 41.6, MCV 97.9 H, MCH 35.3 H, MCHC 36.1 H, RDW Std Deviation 46.0 H, RDW Coeff of Patito 13.0, Plt Count 108 L, MPV 11.3, Immature Gran % (Auto) 0.300, Neut % (Auto) 58.6, Lymph % (Auto) 28.6, [place] % (Auto) 8.8, Eos % (Auto) 2.8, Baso % (Auto) 0.9, Absolute Neuts (auto) 4.7, Absolute Lymphs (auto) 2.27, Nucleated RBC % 0 04/21/20 16:00: Sodium 139, Potassium 3.9, Chloride 107, Carbon Dioxide 27.0, Anion Gap 5, BUN 6 L, Creatinine 0.74, Estim Creat Clear Calc 130.16, Est GFR (MDRD) Af Amer 146, Est GFR (MDRD) Non-Af 120, BUN/Creatinine Ratio 8.1 L, Glucose 300 H, Calcium 8.1 L, Total Bilirubin 1.20 H, AST 165 H, ALT 116 H, Alkaline Phosphatase 99, Total Protein 8.5 H, Albumin 3.7, Globulin 4.8 H, Albumin/Globulin Ratio 0.8 L, Lipase 434 H 04/21/20 16:00: Ethyl Alcohol 472.0 H* 04/21/20 16:30: Urine Opiates Screen NEGATIVE, Urine Methadone Screen NEGATIVE, Ur Barbiturates Screen NEGATIVE, Ur Phencyclidine Scrn NEGATIVE, Ur Amphetamines Screen NEGATIVE, U Methamphetamin-MDMA NEGATIVE, U Benzodiazepines Scrn NEGATIVE, Urine Cocaine Screen NEGATIVE, U Cannabinoids Screen NEGATIVE, Ur Drug Screen Comment Assessment/Plan All Active Problems Alcohol withdrawal (Acute) Rhabdomyolysis (Resolved) 1. Acute alcohol withdrawal: No symptoms at this time as patient has intoxicated. Will initiate phenobarbital. Verified with the patient that he wishes to quit alcohol. Explained to the patient and that he will be here for least 3 days unless his withdrawal symptoms may get worse given his high consumption of alcohol which may warrant more aggressive measures of treating his withdrawal symptoms. Patient be on thiamine and folate as well as other medications to help with other somatic complaints while he is here. 2. Diabetes mellitus type 2 uncontrolled. Patient stopped taking his medication sometime ago and blood sugar is 300 here. Will initiate sliding scale insulin as well as check an A1c. A year ago, his A1c was 8.5. 3. Morbid obesity: Complicates overall care. Further guidance and instructions can take a place outpatient. 4. VTE prophylaxis: Not indicated at this time as he is low risk. OBSV E&M: 95792 Initial observation care L2
[2020-04-21 18:33] VITALS: BP 127/73; PULSE 79; RESP 18; TEMP 36.6; O2SAT 95; BMI 35.6
[2020-04-21 19:03] LABS: Hemoglobin A1c 6.5 % (3.8-5.6)
[2020-04-21] MEDS: Phenobarbital 32.4 MG Tablet 64.8 MG PO ×2 (19:49→22:49)
[2020-04-21] MEDS: Thiamine Hydrochloride 100 MG Tablet PO (19:49)
[2020-04-21] MEDS: Folic Acid 1 MG Tablet PO (19:49)
[2020-04-21 19:59] VITALS: BP 151/101; PULSE 76; RESP 18; TEMP 37.1; O2SAT 95
[2020-04-21] MEDS: hydrOXYzine PAM 25 MG Capsule 50 MG PO (21:41)
[2020-04-21 21:55] LABS: Bedside Glucose 340 mg/dL (70-110)
[2020-04-21] MEDS: Gabapentin 300 MG Capsule PO (22:50)
[2020-04-21] MEDS: traZODone 100 MG Tablet PO (22:50)
[2020-04-21 22:53] VITALS: BP 147/99; PULSE 83; RESP 18; TEMP 37.4; O2SAT 94
[2020-04-22] MEDS: Phenobarbital 32.4 MG Tablet 64.8 MG PO ×6 (03:11→22:25)
[2020-04-22 03:15] VITALS: BP 132/84; PULSE 91; RESP 16; TEMP 37.3; O2SAT 94
[2020-04-22 06:56] VITALS: BP 159/87; PULSE 71; RESP 18; TEMP 37.2; O2SAT 97
[2020-04-22] MEDS: Insulin Lispro 100 UNIT/ML INSULN.PEN SC ×3 (07:01→16:34)
[2020-04-22 07:05] LABS: Bedside Glucose 237 mg/dL (70-110)
[2020-04-22 07:54] VITALS: BP 148/92; PULSE 82; RESP 16; TEMP 36.7
[2020-04-22] MEDS: Folic Acid 1 MG Tablet PO (08:07)
[2020-04-22] MEDS: Thiamine Hydrochloride 100 MG Tablet PO ×2 (08:07→16:34)
--- NOTE | 2020-04-22 08:42 | PN_ITS ---
Patient Problems: Active and Suspected Problems Alcohol withdrawal (Acute) Subjective: Chief complaint: Follow-up after admission for acute alcohol intoxication/withdrawal. Patient seen and examined. No acute events overnight. His main complaint today is weakness. He denied any anxiety or restlessness. Denied abdominal pain, nausea or vomiting. Denied fever or chills. His vital signs are stable. - Physical Exam Vitals/I&O's: Vital Signs Temp Pulse Resp BP Pulse Ox 98.1 F 82 16 148/92 H 97 04/22/20 07:54 04/22/20 07:54 04/22/20 07:54 04/22/20 07:54 04/22/20 06:56 Oxygen Delivery Method Room Air Weight: 251 lb 12.286 oz Body Mass Index (BMI) 35.6 General: Alert, Oriented x3, Cooperative, No apparent distress HEENT: Atraumatic, PERRLA, EOMI, Normocephalic Oral: Moist Mucosa, No Gingival or Mucosal Lesions/ Ulcerations Neck: Supple, No JVD, Negative Carotid Bruits, Trachea Midline, Thyroid Normal Size and Texture Lungs: Clear to auscultation, Normal air movement, No rhonchi, No wheeze, No rales Cardiovascular: Regular rate, Regular Rhythm, Normal S1, Normal S2 Abdomen: Bowel Sounds Present, Soft, Non Tender, Non-Distended, No Hepato- splenomegaly Extremities: No clubbing, No cyanosis, No edema Skin: No rashes, No breakdown Lymphatic: No Cervical, Supraclavicular, or Inguinal Adenopathy Neurological: Cranial nerves II-XII grossly intact, Motor Exam 5/5 strength throughout Psych/Mental Status: Normal Affect, Appropriate, Alert and oriented to time, place, person, mood and affect Laboratory Results 04/21/20 16:00: WBC 8.0, RBC 4.25 L, Hgb 15.0, Hct 41.6, MCV 97.9 H, MCH 35.3 H, MCHC 36.1 H, RDW Std Deviation 46.0 H, RDW Coeff of Patito 13.0, Plt Count 108 L, MPV 11.3, Immature Gran % (Auto) 0.300, Neut % (Auto) 58.6, Lymph % (Auto) 28.6, [place] % (Auto) 8.8, Eos % (Auto) 2.8, Baso % (Auto) 0.9, Absolute Neuts (auto) 4.7, Absolute Lymphs (auto) 2.27, Nucleated RBC % 0 04/21/20 16:00: Sodium 139, Potassium 3.9, Chloride 107, Carbon Dioxide 27.0, Anion Gap 5, BUN 6 L, Creatinine 0.74, Estim Creat Clear Calc 130.16, Est GFR (MDRD) Af Amer 146, Est GFR (MDRD) Non-Af 120, BUN/Creatinine Ratio 8.1 L, Glucose 300 H, Calcium 8.1 L, Total Bilirubin 1.20 H, AST 165 H, ALT 116 H, Alkaline Phosphatase 99, Total Protein 8.5 H, Albumin 3.7, Globulin 4.8 H, Albumin/Globulin Ratio 0.8 L, Lipase 434 H 04/21/20 16:00: Ethyl Alcohol 472.0 H* 04/21/20 16:00: Hemoglobin A1c 6.5 H 04/21/20 16:30: Urine Opiates Screen NEGATIVE, Urine Methadone Screen NEGATIVE, Ur Barbiturates Screen NEGATIVE, Ur Phencyclidine Scrn NEGATIVE, Ur Amphetamines Screen NEGATIVE, U Methamphetamin-MDMA NEGATIVE, U Benzodiazepines Scrn NEGATIVE, Urine Cocaine Screen NEGATIVE, U Cannabinoids Screen NEGATIVE, Ur Drug Screen Comment 04/21/20 21:49: POC Glucose 340 H 04/22/20 06:55: POC Glucose 237 H Current Medications Acetaminophen (Tylenol) 500 mg PO Q4H PRN PRN PRN Reason: Temp > 100.4 F Dextrose (D50w Syringe) 0 gm IV X1 PRN; Protocol PRN Reason: Hypoglycemia Dicyclomine HCl (Bentyl) 20 mg PO Q6H PRN PRN PRN Reason: abdominal discomfort Folic Acid (Folic Acid) 1 mg PO DAILY@0800 [facility] Stop: 04/23/20 08:01 Last Admin: 04/22/20 08:07 Dose: 1 mg Documented by: Gabapentin (Neurontin) 300 mg PO Q8H PRN PRN PRN Reason: moderate to severe anxiety Last Admin: 04/21/20 22:50 Dose: 300 mg Documented by: Glucagon () 1 mg IM .X1 PRN PRN Reason: Hypoglycemia Hydroxyzine Pamoate (Vistaril Pamoate Capsule) 50 mg PO Q4H PRN PRN PRN Reason: mild anxiety Last Admin: 04/21/20 21:41 Dose: 50 mg Documented by: Sodium Chloride () 250 mls @ 15 mls/hr IV .[id number] PRN PRN Reason: Saline Flush Sodium Chloride () 250 mls @ 15 mls/hr IV .[id number] PRN PRN Reason: Additional IVPB Infusion Ibuprofen (Motrin) 600 mg PO Q8H PRN PRN PRN Reason: Pain Score 1-10/10 Insulin Glargine (Lantus (Bkc)) 10 units SC DAILY [facility] Insulin Human Lispro (Humalog Kwikpen (Bkc)) 0 unit SC TIDAC [facility]; Protocol Last Admin: 04/22/20 07:01 Dose: 3 u Documented by: Loperamide HCl (Imodium) 2 mg PO Q4H PRN PRN PRN Reason: LOOSE STOOLS Ondansetron HCl (Zofran) 8 mg PO Q8H PRN PRN PRN Reason: NAUSEA Phenobarbital (Phenobarbital) 97.2 mg PO Q4H [facility]; Taper Stop: 04/26/20 02:59 Last Admin: 04/22/20 07:01 Dose: 97.2 mg Documented by: Sodium Chloride () 10 - 40 ml IV UD PRN PRN Reason: SALINE FLUSH Thiamine HCl (Vitamin B1) 100 mg PO BIDCM [facility] Stop: 04/24/20 08:01 Last Admin: 04/22/20 08:07 Dose: 100 mg Documented by: Trazodone HCl (Desyrel) 100 mg PO QHS PRN PRN Reason: INSOMNIA Last Admin: 04/21/20 22:50 Dose: 100 mg Documented by: Medical Necessity - Tobacco Use Smoking Status: Former smoker Tobacco Use: Non-smoker, - Assessment/Plan All Active Problems Alcohol withdrawal (Acute) This is a 44 years old male patient admitted for acute alcohol intoxication/withdrawal for medical stabilization. #1 acute alcohol intoxication/withdrawal: On admission, blood alcohol level was 472. Urine drug screen was negative. Patient is on phenobarbital taper, folic acid and thiamine, PRN Bentyl, Neurontin, Motrin, Imodium, trazodone. CBC and BMP reviewed, unremarkable. LFT was elevated as below. Plan to continue same treatment, consult 180 program. #2 elevated LFT: This is likely due to alcoholic hepatitis. Patient denies any abdominal pain. No evidence of acute liver failure. Liver transaminases are trending down. Plan to monitor. #3 probable mild acute pancreatitis/alcoholic: On admission, lipase was 434. Patient denied any abdominal pain, nausea or vomiting. Repeat lipase today was 319 which is normal. #4 type 2 diabetes mellitus: Patient is noncompliant, he is supposed to take Lantus but he is not. Blood sugar has been in the 200-300 range. Although hemoglobin A1c is 6.5%. Plan: Start Lantus 10 units daily, continue sliding scale. #5 chronic thrombocytopenia: Due to chronic liver disease secondary to alcoholism. No active bleeding. #6 DVT prophylaxis: Low risk patient, no prophylaxis indicated. This note was generated with [employer] dictation software. It may contain incorrect words, spelling, and punctuation that were not noted in checking the note before signing. Inpatient E&M: 74096 Subs Hosp L2
[2020-04-22 09:27] LABS: AST(SGOT) 114 U/L (15-37); Alanine Aminotransfer ALT/SGPT 98 U/L (16-61); Albumin, Serum 3.3 g/dL (3.2-5.0); Alkaline Phosphatase 142 U/L (45-117); Bilirubin, Direct 0.58 mg/dL (0.00-0.30); Lipase 319 U/L (73-393); Protein, Total 7.3 g/dL (6.4-8.2)
[2020-04-22 10:56] LABS: Bedside Glucose 194 mg/dL (70-110)
--- NOTE | 2020-04-22 13:46 | CASEMGMT ---
Social Work Note Pt is listed as self-pay. SW attempted to meet with pt regarding self-pay, pt soundly sleeping, didn't awake when this worker entered the room. SW will attempt to meet with pt tomorrow regarding self-pay status. Jacquelin Dalton CERAMIC COATER MACHINE, SPLITTING MACHINE OPERATOR HELPER
[2020-04-22 14:54] VITALS: BP 142/87; PULSE 71; RESP 16; TEMP 36.9; O2SAT 97
[2020-04-22] MEDS: Gabapentin 300 MG Capsule PO (16:34)
[2020-04-22 22:12] VITALS: BP 153/102; PULSE 75; RESP 18; TEMP 37.1; O2SAT 99
[2020-04-22] MEDS: traZODone 100 MG Tablet PO (22:25)
[2020-04-22] MEDS: Ibuprofen 600 MG Tablet PO (22:25)
[2020-04-22 22:30] LABS: Bedside Glucose 155 mg/dL (70-110)
[2020-04-23 02:10] LABS: Bedside Glucose 214 mg/dL (70-110)
[2020-04-23 03:19] VITALS: BP 132/89; PULSE 67; RESP 18; TEMP 36.7; O2SAT 98
[2020-04-23] MEDS: Phenobarbital 32.4 MG Tablet 64.8 MG PO ×6 (03:22→23:02)
[2020-04-23] MEDS: Insulin Lispro 100 UNIT/ML INSULN.PEN SC ×3 (06:42→17:21)
[2020-04-23 06:50] LABS: Bedside Glucose 297 mg/dL (70-110)
--- NOTE | 2020-04-23 08:02 | PCM.PROGNOTE ---
Patient Problems: Active and Suspected Problems Alcohol withdrawal (Acute) Subjective: Chief complaint: Follow-up after admission for acute ankle intoxication/withdrawal. Patient seen and examined. No acute events overnight. He complained of some nausea overnight, improved this morning. Denied abdominal pain, vomiting or diarrhea. Denied anxiety or significant tremors. His vital signs are stable. - Physical Exam Vitals/I&O's: Vital Signs Temp Pulse Resp BP Pulse Ox 98.1 F 67 18 132/89 H 98 04/23/20 03:19 04/23/20 03:19 04/23/20 03:19 04/23/20 03:19 04/23/20 03:19 Oxygen Delivery Method Room Air Weight: 251 lb 12.286 oz Body Mass Index (BMI) 35.6 Intake and Output for Last 24 Hours 04/21/20 04/22/20 04/23/20 23:59 23:59 23:59 Intake Total 500 / 500 300 / 300 Balance 500 / 500 300 / 300 General: Alert, Oriented x3, Cooperative, No apparent distress HEENT: Atraumatic, EOMI, Normocephalic Oral: Moist Mucosa, No Gingival or Mucosal Lesions/ Ulcerations Neck: Supple, No JVD, Negative Carotid Bruits, Trachea Midline, Thyroid Normal Size and Texture Lungs: Clear to auscultation, Normal air movement, No rhonchi, No wheeze, No rales Cardiovascular: Regular rate, Regular Rhythm, Normal S1, Normal S2, PMI Normal Abdomen: Bowel Sounds Present, Soft, Non Tender, Non-Distended, No Hepato-splenomegaly Extremities: No clubbing, No cyanosis, No edema Skin: No rashes, No breakdown Lymphatic: No Cervical, Supraclavicular, or Inguinal Adenopathy Neurological: Cranial nerves II-XII grossly intact, Neuro grossly intact Psych/Mental Status: Normal Affect, Appropriate, Alert and oriented to time, place, person, mood and affect Laboratory Results 04/22/20 08:50: Total Bilirubin 1.10 H, Direct Bilirubin 0.58 H, AST 114 H, ALT 98 H, Alkaline Phosphatase 142 H, Total Protein 7.3, Albumin 3.3, Globulin 4.0, Lipase 319 04/22/20 10:48: POC Glucose 194 H 04/22/20 16:29: POC Glucose 214 H 04/22/20 22:20: POC Glucose 155 H 04/23/20 06:42: POC Glucose 297 H Current Medications Acetaminophen (Tylenol) 500 mg PO Q4H PRN PRN PRN Reason: Temp > 100.4 F Dextrose (D50w Syringe) 0 gm IV X1 PRN; Protocol PRN Reason: Hypoglycemia Dicyclomine HCl (Bentyl) 20 mg PO Q6H PRN PRN PRN Reason: abdominal discomfort Gabapentin (Neurontin) 300 mg PO Q8H PRN PRN PRN Reason: moderate to severe anxiety Last Admin: 04/22/20 16:34 Dose: 300 mg Documented by: Glucagon () 1 mg IM .X1 PRN PRN Reason: Hypoglycemia Hydroxyzine Pamoate (Vistaril Pamoate Capsule) 50 mg PO Q4H PRN PRN PRN Reason: mild anxiety Last Admin: 04/21/20 21:41 Dose: 50 mg Documented by: Sodium Chloride () 250 mls @ 15 mls/hr IV .[id number] PRN PRN Reason: Saline Flush Sodium Chloride () 250 mls @ 15 mls/hr IV .[id number] PRN PRN Reason: Additional IVPB Infusion Ibuprofen (Motrin) 600 mg PO Q8H PRN PRN PRN Reason: Pain Score 1-10/10 Last Admin: 04/22/20 22:25 Dose: 600 mg Documented by: Insulin Glargine (Lantus (Bkc)) 10 units SC DAILY [facility] Last Admin: 04/22/20 10:57 Dose: 10 u Documented by: Insulin Human Lispro (Humalog Kwikpen (Bkc)) 0 unit SC TIDAC [facility]; Protocol Last Admin: 04/23/20 06:42 Dose: 4 u Documented by: Loperamide HCl (Imodium) 2 mg PO Q4H PRN PRN PRN Reason: LOOSE STOOLS Ondansetron HCl (Zofran) 8 mg PO Q8H PRN PRN PRN Reason: NAUSEA Phenobarbital (Phenobarbital) 64.8 mg PO Q4H [facility]; Taper Stop: 04/26/20 02:59 Last Admin: 04/23/20 06:43 Dose: 64.8 mg Documented by: Sodium Chloride () 10 - 40 ml IV UD PRN PRN Reason: SALINE FLUSH Thiamine HCl (Vitamin B1) 100 mg PO BIDCM [facility] Stop: 04/24/20 08:01 Last Admin: 04/22/20 16:34 Dose: 100 mg Documented by: Trazodone HCl (Desyrel) 100 mg PO QHS PRN PRN Reason: INSOMNIA Last Admin: 04/22/20 22:25 Dose: 100 mg Documented by: Medical Necessity - Tobacco Use Smoking Status: Former smoker Tobacco Use: Non-smoker, - Assessment/Plan All Active Problems Alcohol withdrawal (Acute) This is a 44 years old male patient admitted for acute alcohol intoxication/withdrawal for medical stabilization. #1 acute alcohol intoxication/withdrawal: He is on phenobarbital taper thiamine, folic acid, PRN Bentyl, Neurontin, Vistaril, ibuprofen, Imodium, trazodone. On admission, blood alcohol level was 472. Urine drug screen was negative. His vital signs are stable. Symptoms has been improving. Plan to continue same treatment. #2 elevated LFT: This is likely due to alcoholic hepatitis. Liver transaminases are trending down on repeat LFT from yesterday. Patient remains without any abdominal pain. Stable. #3 probable mild acute pancreatitis/alcoholic: On admission, lipase was 434, came down to 319 on repeat. Patient denied any abdominal pain, nausea or vomiting. #4 type 2 diabetes mellitus: He is on Lantus 10 units daily as well as insulin sliding scale. Today, blood sugar has been in the range of 100-200, getting better. Hemoglobin A1c was 6.5%. Plan to continue same treatment. #5 chronic thrombocytopenia: Due to chronic liver disease secondary to alcoholism. No active bleeding. #6 DVT prophylaxis: Low risk patient, no prophylaxis indicated. This note was generated with [employer] dictation software. It may contain incorrect words, spelling, and punctuation that were not noted in checking the note before signing. Inpatient E&M: 28837 Subs Hosp L2
[2020-04-23 10:00] VITALS: BP 155/89; PULSE 83; RESP 18; TEMP 36.9; O2SAT 95
[2020-04-23] MEDS: Thiamine Hydrochloride 100 MG Tablet PO ×2 (10:33→17:22)
[2020-04-23] MEDS: Folic Acid 1 MG Tablet PO (10:33)
[2020-04-23] MEDS: Ibuprofen 600 MG Tablet PO (10:42)
[2020-04-23] MEDS: hydrOXYzine PAM 25 MG Capsule 50 MG PO ×2 (10:42→14:28)
[2020-04-23 12:16] LABS: Bedside Glucose 278 mg/dL (70-110)
--- NOTE | 2020-04-23 13:04 | CHAPLAIN ---
Type of Pastoral Visit _x__ Initial Visit ___ Follow-up Visit ___ On-call Visit ___ General Patient Visit ___ Spiritual Assessment ___ Family Conference ___ Bereavement ___ Rapid Response ___ Code Blue ___ Other (describe below) Pastoral Care Referral From _x__ Patient ___ Family ___ Nurse ___ Physician ___ Glaze Grinder ___ Golf Manager ___ Other (describe below) Sacrament/Intervention _x__ Active listening ___ Anointing ___ Christian ___ Bereavement ___ Communion ___ Brenda exploration ___ ___ Life review ___ Prayer ___ Reconciliation ___ Sacrament of Sick ___ Supportive presence ___ Wedding ___ Other (describe below) Pastoral Comments patient is eating lunch; pt reported feeling better today; pt requested to try a visit tomorrow
--- NOTE | 2020-04-23 13:06 | CASEMGMT ---
Social Work Note Pt is listed as self-pay. SW in to speak with pt. SW introduced self and role at [facility]. Pt is alert and orientated x3. Pt confirms that he doesn't have insurance. Pt states he works but the insurance is too high. SW provided pt with financial resources including medicaid application, HCAP application, [facility], [employer], and prescription assistance resources. Pt thanked this worker, denied additional needs or concerns at this time. Jacquelin Dalton HOSE INSPECTOR AND PATCHER, HOT BALLER
[2020-04-23 14:00] VITALS: BP 140/90; PULSE 72; RESP 18; TEMP 36.7; O2SAT 95
[2020-04-23] MEDS: Gabapentin 300 MG Capsule PO (14:28)
--- NOTE | 2020-04-23 14:32 | ADDICTION ---
This resume writer met with patient in his room to complete ASAM, MSE and AUDIT assessments and to process discharge planning. Patient was alert and oriented x4 and participated appropriately throughout meeting. Patient scheduled an appointment with Jonathan for individual counseling on 04/24/2020 at 12:30pm. He reports that his ex-girlfriend, Ely, will be providing transport to this appointment. This resume writer will fax completed documentation to [facility].
[2020-04-23 17:10] LABS: Bedside Glucose 311 mg/dL (70-110)
[2020-04-23 22:50] VITALS: BP 136/81; PULSE 82; RESP 18; TEMP 36.8; O2SAT 97
[2020-04-24 03:20] VITALS: BP 142/86; PULSE 84; RESP 17; TEMP 37; O2SAT 95
[2020-04-24] MEDS: Phenobarbital 32.4 MG Tablet 64.8 MG PO ×2 (03:22→09:17)
[2020-04-24] MEDS: Insulin Lispro 100 UNIT/ML INSULN.PEN SC (06:11)
[2020-04-24 06:30] LABS: Bedside Glucose 183 mg/dL (70-110)
--- NOTE | 2020-04-24 08:09 | DCINST_ITS ---
- Discharge Diagnoses Current Active Problems: Current Active and Chronic Problems Alcohol withdrawal (Acute) You will use the following diet at home:: Calorie/Carbohydrate Controlled (specify 1200, 1400, etc) - 1800 ariella., Cardiac Your food should be the consistency of: Regular Discharge Activity: Return to Normal Activity Weight Bearing Status: Full weight bearing Call your doctor if you observe: Fever of 101 or Higher, Shortness of breath, Dizziness, Fainting spells, Chest pain, Increased palpitations (irregular heartbeat), Uncontrolled pain Instructions: Using a Blood Sugar Log, Taking TERESO Inhibitors, Hyperglycemia (High Blood Sugar), Hypoglycemia (Low Blood Sugar), How to Check Your Blood Sugar, Taking Your Blood Pressure, Recovering from Addiction: Continuing with Counseling Additional Instructions: Follow-up with 180 program as scheduled. Allergies/Adverse Reactions: Allergies No Known Allergies Allergy (Verified 04/21/20 15:37) Medications to take at Discharge Insulin Glargine,Hum.rec.anlog [Lantus] 10 unit SQ DAILY 04/22/20 Folic Acid 1 mg PO DAILY@0800 #30 tab 04/24/20 Lisinopril [Zestril] 10 mg PO DAILY #30 tab 04/24/20 Metformin HCl [Glucophage] 500 mg PO BID #90 tab 04/24/20 Thiamine HCl 100 mg PO DAILY #30 tab 04/24/20 The following prescriptions were given: Folic Acid 1 mg PO DAILY@0800 #30 tab Transmission Status: Received by [facility]/pharmacy #[id number] Metformin HCl [Glucophage] 500 mg PO BID #90 tab Transmission Status: Pending to [facility]pharmacy #[id number] Thiamine HCl 100 mg PO DAILY #30 tab Transmission Status: Pending to [facility]acy [id number] Lisinopril [Zestril] 10 mg PO DAILY #30 tab Transmission Status: Pending to [facility]pharmacy #[id number] Orders to be completed after discharge: Glucometer Location: None Selected Primary Care Physician: Care Physician,No Primary [Primary Care Provider] - Please follow up with your Primary Care Physician in: 1 week. Test Results: Test results from this visit will be discussed in further detail at your follow- up appointment, if applicable.
[2020-04-24] MEDS: Folic Acid 1 MG Tablet PO (09:17)
[2020-04-24] MEDS: Thiamine Hydrochloride 100 MG Tablet PO (09:17)
[2020-04-24 09:20] VITALS: BP 138/93; PULSE 89; RESP 18; TEMP 36.7; O2SAT 99
[2020-04-24] MEDS: Lisinopril 10 MG Tablet PO (09:20)
--- NOTE | 2020-04-24 11:13 | PCM.DC.SUM ---
Discharge Date and Diagnosis - Problem List Patient Problems: Active and Suspected Problems Alcohol withdrawal (Acute) Date of Admission: 04/21/20 Date of Discharge: 04/24/20 - Primary Discharge Diagnosis Acute Problems: Active Problems #1 acute alcohol intoxication/withdrawal. #2 uncontrolled type 2 diabetes mellitus. #3 mild alcoholic pancreatitis. #4 elevated LFT. #5 chronic thrombocytopenia, due to chronic liver disease secondary to alcoholism. - Secondary Discharge Diagnosis Chronic Problems: Chronic Problems Alcohol abuse (Chronic) Obesity (Chronic) Diabetes mellitus, new onset (Chronic) Hospital Course and Treatment Operations: None Procedures: None Summary of Care Provided: Patient seen and examined on the day of discharge and appeared to be stable to be discharged home. Her symptoms of withdrawal are significantly improved. He was able to sleep overnight. No specific complaints. His vital signs are stable. The patient is a 44 year old M presented to the emergency room requesting admission for acute alcohol and withdrawal for medical stabilization. Upon arrival to the emergency department, patient's blood level of alcohol was 472 consistent with acute alcohol intoxication. Patient was admitted, started on phenobarbital taper, folic acid, thiamine, PRN Bentyl, Neurontin, Vistaril, ibuprofen, Imodium, and trazodone. His urine drug screen was negative. His routine blood work was remarkable for chronic thrombocytopenia, otherwise normal. LFT revealed slightly elevated liver transaminases secondary to chronic liver disease. Initial lipase was 432 which could be due to mild acute alcoholic pancreatitis. Repeat lipase came down to 319 which is normal. Liver transaminases trended down on repeat LFT. Patient with history of type 2 diabetes mellitus and apparently, patient is noncompliant and he is not taking his Lantus appropriately. He mentioned that he takes Lantus when he thinks that he needs it. Although his hemoglobin A1c was 6.5%, his blood sugar was in the range of 200-300. Patient was started back on Lantus 10 units daily. With above-mentioned treatment, patient's symptoms of withdrawal improved. He did very well. Patient discharged home in a stable condition, discharged on Lantus 10 units subcu daily, started on lisinopril because his blood pressure was on the higher side which is partly due to alcohol withdrawal, started on metformin 500 mg p.o. twice daily, discharged on folic acid and thiamine, plan to follow-up with [facility] program today, I recommended follow-up with PCP in 1 week. Patient Problems: Active and Suspected Problems Alcohol withdrawal (Acute) - Physical Exam Vitals/I&O's: Vital Signs Temp Pulse Resp BP Pulse Ox 98.1 F 89 18 138/93 H 99 04/24/20 09:20 04/24/20 09:20 04/24/20 09:20 04/24/20 09:20 04/24/20 09:20 Oxygen Delivery Method Room Air Weight: 251 lb 12.286 oz Body Mass Index (BMI) 35.6 Intake and Output for Last 24 Hours 04/22/20 04/23/20 04/24/20 23:59 23:59 23:59 Intake Total 500 / 500 700 / 700 550 / 550 Balance 500 / 500 700 / 700 550 / 550 General: Alert, Oriented x3, Cooperative, No apparent distress HEENT: Atraumatic, PERRLA, EOMI, Normocephalic Oral: Moist Mucosa, No Gingival or Mucosal Lesions/ Ulcerations Neck: Supple, No JVD, Negative Carotid Bruits, Trachea Midline, Thyroid Normal Size and Texture Lungs: Clear to auscultation, Normal air movement, No rhonchi, No wheeze, No rales Cardiovascular: Regular rate, Regular Rhythm, Normal S1, Normal S2, PMI Normal Abdomen: Bowel Sounds Present, Soft, Non Tender, Non-Distended, No Hepato-splenomegaly Extremities: No clubbing, No cyanosis, No edema Skin: No rashes, No breakdown Lymphatic: No Cervical, Supraclavicular, or Inguinal Adenopathy Neurological: Cranial nerves II-XII grossly intact, Neuro grossly intact Psych/Mental Status: Normal Affect, Appropriate Laboratory Results 04/23/20 12:08: POC Glucose 278 H 04/23/20 17:02: POC Glucose 311 H 04/24/20 06:09: POC Glucose 183 H Current Medications Acetaminophen (Tylenol) 500 mg PO Q4H PRN PRN PRN Reason: Temp > 100.4 F Dextrose (D50w Syringe) 0 gm IV X1 PRN; Protocol PRN Reason: Hypoglycemia Dicyclomine HCl (Bentyl) 20 mg PO Q6H PRN PRN PRN Reason: abdominal discomfort Folic Acid (Folic Acid) 1 mg PO DAILY@0800 ÁNGEL Last Admin: 04/24/20 09:17 Dose: 1 mg Documented by: Gabapentin (Neurontin) 300 mg PO Q8H PRN PRN PRN Reason: moderate to severe anxiety Last Admin: 04/23/20 14:28 Dose: 300 mg Documented by: Glucagon () 1 mg IM .X1 PRN PRN Reason: Hypoglycemia Hydroxyzine Pamoate (Vistaril Pamoate Capsule) 50 mg PO Q4H PRN PRN PRN Reason: mild anxiety Last Admin: 04/23/20 14:28 Dose: 50 mg Documented by: Sodium Chloride () 250 mls @ 15 mls/hr IV .[id number] PRN PRN Reason: Saline Flush Sodium Chloride () 250 mls @ 15 mls/hr IV .[id number] PRN PRN Reason: Additional IVPB Infusion Ibuprofen (Motrin) 600 mg PO Q8H PRN PRN PRN Reason: Pain Score 1-10/10 Last Admin: 04/23/20 10:42 Dose: 600 mg Documented by: Insulin Glargine (Lantus (Bkc)) 10 units SC DAILY [facility] Last Admin: 04/24/20 09:18 Dose: 10 u Documented by: Insulin Human Lispro (Humalog Kwikpen (Bkc)) 0 unit SC TIDAC [facility]; Protocol Last Admin: 04/24/20 06:11 Dose: 1 u Documented by: Loperamide HCl (Imodium) 2 mg PO Q4H PRN PRN PRN Reason: LOOSE STOOLS Ondansetron HCl (Zofran) 8 mg PO Q8H PRN PRN PRN Reason: NAUSEA Phenobarbital (Phenobarbital) 64.8 mg PO Q6H [facility]; Taper Stop: 04/26/20 02:59 Last Admin: 04/24/20 09:17 Dose: 64.8 mg Documented by: Sodium Chloride () 10 - 40 ml IV UD PRN PRN Reason: SALINE FLUSH Trazodone HCl (Desyrel) 100 mg PO QHS PRN PRN Reason: INSOMNIA Last Admin: 04/22/20 22:25 Dose: 100 mg Documented by: Discharge Activity: Return to Normal Activity Weight Bearing Status: Full weight bearing Call your doctor if you observe: Fever of 101 or Higher, Shortness of breath, Dizziness, Fainting spells, Chest pain, Increased palpitations (irregular heartbeat), Uncontrolled pain Home Medications: Medications to take at Discharge Insulin Glargine,Hum.rec.anlog [Lantus] 10 unit SQ DAILY 04/22/20 Folic Acid 1 mg PO DAILY@0800 #30 tab 04/24/20 Lisinopril [Zestril] 10 mg PO DAILY #30 tab 04/24/20 Metformin HCl [Glucophage] 500 mg PO BID #90 tab 04/24/20 Thiamine HCl 100 mg PO DAILY #30 tab 04/24/20 Following Prescriptions Were Given to Patient: Folic Acid 1 mg PO DAILY@0800 #30 tab Transmission Status: Received by [facility]/pharmacy #[id number] Metformin HCl [Glucophage] 500 mg PO BID #90 tab Transmission Status: Received by [facility]/pharmacy #[id number] Thiamine HCl 100 mg PO DAILY #30 tab Transmission Status: Received by [facility]/pharmacy #[id number] Lisinopril [Zestril] 10 mg PO DAILY #30 tab Transmission Status: Received by [facility]/pharmacy #[id number] Other Amb Orders: Glucometer Location: None Selected Primary Care Physician: Care Physician,No Primary [Primary Care Provider] - Please follow up with your Primary Care Physician in: 1 week. Patient Instructions: Using a Blood Sugar Log, Taking TERESO Inhibitors, Hyperglycemia (High Blood Sugar), Hypoglycemia (Low Blood Sugar), How to Check Your Blood Sugar, Taking Your Blood Pressure, Recovering from Addiction: Continuing with Counseling Disposition: Home Minutes spent on discharge:: 32 Medical Necessity - Tobacco Use Smoking Status: Former smoker Tobacco Use: Non-smoker, - Meaningful Use Info Meaningful Use Diagnoses (Choose all that apply): None applicable Inpatient E&M: 31183 Disch Hosp
--- NOTE | 2020-04-24 12:09 | PHA.DC.MC ---
Pharmacy Service has performed discharge medication reconciliation and counseling for this patient. 1. THIAMINE 100MG PO DAILYCM 2. FOLIC ACID 1MG PO DAILYCM 3. LISINOPRIL 10MG PO DAILY 4. METFORMIN 500MG PO BID The patient's discharge medication list was reviewed for discrepancies and discrepancies were resolved. Home Medications Insulin Glargine,Hum.rec.anlog [Lantus] 10 unit SQ DAILY 04/22/20 Folic Acid 1 mg PO DAILY@0800 #30 tab 04/24/20 Lisinopril [Zestril] 10 mg PO DAILY #30 tab 04/24/20 Metformin HCl [Glucophage] 500 mg PO BID #90 tab 04/24/20 Thiamine HCl 100 mg PO DAILY #30 tab 04/24/20 The patient was counseled on the following discharge medications and changes in medications for homegoing were reviewed. The Reason for Use, instructions for use, and potential side effects were reviewed for all new medications. The patient's questions regarding all of their medications were answered. The patient was able to verbally demonstrate an understanding of their discharge medications.
== END 2020-04-24 12:15 | disposition home or self-care (01) | DRG 896 ==
LOC: ED 17:46 → MS3 23:26
PROVIDERS: Emergency Provider Emergency Medicine; Visit Provider Hospitalist
DX: F10.239 Alcohol dependence with withdrawal, unspecified (principal); K85.20 Alcohol induced acute pancreatitis without necrosis or infection; F10.229 Alcohol dependence with intoxication, unspecified; E11.65 Type 2 diabetes mellitus with hyperglycemia; D69.59 Other secondary thrombocytopenia; K70.10 Alcoholic hepatitis without ascites; K70.9 Alcoholic liver disease, unspecified; F17.200 Nicotine dependence, unspecified, uncomplicated; E66.01 Morbid (severe) obesity due to excess calories; Z91.14 Patient's other noncompliance with medication regimen; Z68.35 Body mass index [BMI] 35.0-35.9, adult; Y90.8 Blood alcohol level of 240 mg/100 ml or more
CPT/HCPCS: 36415; 80053; 80076; 80307; 80320; 82962; 83036; 83690; 85025; 93005; 99284; G0480

== ENCOUNTER 2020-06-17 10:00 | Outpatient (RCR) | payer MEDICAID, SELFPAY ==
[2020-05-19 16:08] VITALS: BMI 35.6
--- NOTE | 2020-06-02 16:35 | HP.PTEVAL ---
Patient's Visit Information JUAN MCLAIN Jr. is a 44 year old M referred to Physical Therapy by Dr. Indiana Smith MD with a diagnosis of R shoulder pain. Date of Evaluation: 06/02/20 Physical Therapist: Mushtaq Ortega, DPT, OCS, CSCS - Visit Plan Frequency: 2-3x /Week Duration: 4-6 Weeks Plan: 2-3x/week for 2-4 weeks for. 1. activitiy modification and rest combined with ice, TENS as needed adn grade 1 mobs. 2. When painfree at rest, progress to postural and scapular/RC strength to HEP - Subjective R arm hurts. been hurting about 3 months. Possibly sore from working out at gym??? Sleeping can be challenging. Keeps him up at night. takes ibuprofen. Pain is mostly R bicep 7/10 at night lying. Carrying groceries and lifting are a problem. avoids workign out at gym due to R arm pain. Is L handed. Works at [employer]. Worse after work. Got kids at home and football practice. Basic ADLs are OK. This is worsening over time. Still doing TM and works on abs. No neck problems or UE tingling/numbness. - Pain R biceps/shoulder Pain Intensity (Out of 10): 5 Pain Intensity Range: 5, 7 - Objective Posture is very much FW shoulders and apparent tightness in pectorals. Forward head. Correctable with VC. Cervical aROm stiff but not painful 50 ext, 55 rotations B. Scap mobility is fair. Mostly limited retraction. Elbow and wrist aROM WFL WNL and painfree. tender to palpation R supraspinatus insertion maximally. R shoulder AROM 150 flexion adn abd with mild en range pain and painful arc. Exxternal rotation to 60 but pain at end range and IR behind back slow and painful. Resisted testing elbow 5/5 painfree. shoulder flexion, abd, empty can 4/5 R and 4+ L. R apinful mildly. Ext rotation R 4- painful and L 4+, IR 4 B and no pain. + HK and neer impingement in R. - drop arm. - ext rotation lag test. - sulcus test. - apprehension test - Goals Goal 1:: Painfree at rest Goal Time Frame: 2 Weeks Goal 2:: Full aROM without increased pain to make dressing easier. Goal Time Frame: 4-6 Weeks Goal 3:: I approp HEP managment and strength Goal Time Frame: 4-6 Weeks Goal 4:: Pt feel 90% back to normal and able to start ex regimen Goal Time Frame: 4-6 Weeks Goal 5:: Quick Dash score 10 or less. Goal Time Frame: 4-6 Weeks - Rehabilitation Potential Physical Therapy Diagnosis: R supraspinatus impingement tendonitis. Rehabilitation Potential: Fair - Anticipated Interventions Patient/Client Instruction: Educate patient on: Condition, Plan of Care For the Purpose of:: To decrease pain, To increase ROM, To improve muscle performance and motor function, To increase tolerance to activity/condition/position, To improve ability of physical actions for home/community/work/leisure Therapeutic Exercise to Include: Strength training, Postural training, Flexibilty training, Gait and locomotor training, Neuromotor development, Passive ROM, Active ROM, Scapular Strength/Stabilization For the Purpose of:: To decrease pain, To increase ROM, To improve muscle performance and motor function, To increase tolerance to activity/condition/position, To improve ability of physical actions for home/community/work/leisure Manual Therapy Techniques to Include: Mobilization, Passive ROM, Soft tissue mobilization For the Purpose of:: To decrease pain, To increase ROM TENS: Yes Cryotherapy (ice pack, ice massage): Yes For the Purpose of:: To decrease pain, To decrease swelling/inflammation Thank you for the opportunity to evaluate your patient. For Medicare and Medicare HMO plans, please review the plan of care and approve it. It will need to be FAXED BACK to us at [phone] for Medicare purposes. For Medicare only, by signing this I certify the plan of care. Please let me know if there are questions or concerns regarding this plan of care. Physician Signature: Date:
--- NOTE | 2020-07-28 17:38 | HP.PTDCNRP_ITS ---
JUAN SIMSSHELDON Jay was seen in my office for initial evaluation on 06/02/20. The following Plan of Care was established for this patient: Initial Frequency: 2-3x /Week Initial Duration: 4-6 Weeks Patient/Client Instruction: Educate patient on: Condition, Plan of Care For the Purpose of:: To decrease pain, To increase ROM, To improve muscle performance and motor function, To increase tolerance to activity/condition/position, To improve ability of physical actions for home/ community/work/leisure Therapeutic Exercise to Include: Strength training, Postural training, Flexibilty training, Gait and locomotor training, Neuromotor development, Passive ROM, Active ROM, Scapular Strength/Stabilization For the Purpose of:: To decrease pain, To increase ROM, To improve muscle performance and motor function, To increase tolerance to activity/condition/position, To improve ability of physical actions for home/community/work/leisure Manual Therapy Techniques to Include: Mobilization, Passive ROM, Soft tissue mobilization For the Purpose of:: To decrease pain, To increase ROM TENS: Yes Cryotherapy (ice pack, ice massage): Yes For the Purpose of:: To decrease pain, To decrease swelling/inflammation This patient was last seen in our office 06/17/20. Pertinent comments regarding their Physical therapy will appear below: Pt seen 6 visits and was 10% better. Was to continue HEP and f/u in mid June but did not attend that visit. At this point, it has been over 4 weeks adn I will discontinue due to nonattendance. At this point I will be discontinuing this patient from physical therapy. I would be happy to see this patient again in the future if found appropriate by the physician. Thank you! Mushtaq Ortega, DPT, OCS, CSCS
== END 2020-06-17 19:00 | disposition home or self-care (01) ==
LOC: PT 10:00
PROVIDERS: PCP Internal Medicine; Referring Provider Internal Medicine; Visit Provider Internal Medicine
DX: S46.919D Strain of unspecified muscle, fascia and tendon at shoulder and upper arm level, unspecified arm, subsequent encounter (principal); M25.511 Pain in right shoulder
CPT/HCPCS: 97014; 97110; 97140; 97161; 97530; G0283

== ENCOUNTER → 2020-08-04 08:53 | Outpatient (CLI) | payer MEDICAID, SELFPAY ==
[2020-07-15 08:08] VITALS: BMI 32.8
--- NOTE | 2020-08-04 08:55 | RAD_ITS ---
CLINICAL HISTORY: Male, 44 years old. Right shoulder pain. PROCEDURE: ARTHROGRAM - RIGHT SHOULDER CONSENT: The procedure as well as the benefits and possible complications including infection and bleeding were explained to the patient. Informed consent was obtained. FLUOROSCOPY TIME (if supplied): (46 seconds) minutes/seconds. 2 images were obtained. Injection Information: 10 cc of Dotarem. Number of images obtained: 2 TECHNIQUE: (All elements of maximal sterile barrier technique followed, including US elements as applicable) The patient was in the supine position. The overlying skin was prepped and draped in the usual sterile fashion. Following local anesthetic application and under direct fluoroscopic guidance, a 22-gauge spinal needle was placed into the shoulder joint. 2 cc of ISOVUE-300 was injected for confirmation. Following this, 10 cc of diluted to Dotarem was injected. The patient tolerated the procedure well. RAD/Arthrogram Shoulder w/ MRI IMPRESSION: Successful right shoulder arthrogram. The patient tolerated the procedure well. Electronically Signed: Clarence Godinez, at 12:34 EST , Service support ,
--- NOTE | 2020-08-04 09:15 | MRI_ITS ---
STUDY: MRI RIGHT SHOULDER REASON FOR EXAM: Male, 44 years old. RIGHT labral injury, shoulder pain, pain since 03/2020 TECHNIQUE: Standardized fat and water weighted pulse sequences were obtained in all 3 orthogonal planes. Images were obtained after intra-articular injection of 10 mL of sterile saline and Dotarem COMPARISON: None. FINDINGS: Mild supraspinatus and infraspinatus tendinosis and peritendinitis as with a 1 cm thin linear sealed undersurface tear of the conjoined tendon adjacent to the greater tuberosity. Normal subscapularis tendon. Normal teres minor tendon. Normal supraspinatus muscle. Normal infraspinatus muscle. Normal subscapularis muscle. Normal teres minor muscle. Normal glenohumeral articulation. There is a cortical erosion at the insertion of the infraspinatus tendon. Normal biceps labral complex. Normal intracapsular long biceps tendon. Tear of the superior labrum from the anterior to posterior (SLAP 2 tear). Normal capsulo- ligamentous complex. Normal rotator interval. There is mild osteoarthritis of the acromioclavicular articulation. There is a Type I morphology (flat undersurface), with a neutral orientation. There is no subacromial-subdeltoid bursal fluid. Normal visualized coracohumeral and coracoacromial ligaments. Normal quadrilateral space. Normal axillary space. Normal deltoid muscle. Normal trapezius muscle. MRI/Upper Ext Jt Only W/Contrast IMPRESSION: 1. SLAP 2 labral tear. 2. Mild supraspinatus and infraspinatus tendinosis and peritendinitis as with a 1 cm thin linear concealed undersurface tear of the conjoined tendon adjacent to the greater tuberosity. No muscular atrophy. Electronically Signed: Charlie Phillips MD at 11:48 EST Tel , Service support ,
== END ==
PROVIDERS: PCP Internal Medicine; Referring Provider Internal Medicine; Visit Provider Internal Medicine
DX: S43.439A Superior glenoid labrum lesion of unspecified shoulder, initial encounter (principal)
CPT/HCPCS: 23350; 73222; 77002; Q9967; A9575

== ENCOUNTER 2020-09-21 12:00 | Outpatient (RCR) | payer MEDICAID, SELFPAY ==
[2020-08-10 10:38] VITALS: BMI 35.9
--- NOTE | 2020-08-13 08:25 | HP.PTEVAL ---
Patient's Visit Information JUAN MCLAIN Jr. is a 44 year old M referred to Physical Therapy by Dr. Jose Adkins DO with a diagnosis of R SLAP tear. Date of Evaluation: 08/13/20 Physical Therapist: Mushtaq Ortega, DPT, OCS, CSCS - Visit Plan Frequency: 2-3x /Week Duration: 4-6 Weeks Plan: 2-3x/week for 4-6 weeks. 1. US nontheraml R ant shoulder. 2.. TENS with ice until painfree at rest. 3. Ensure activity modification with posture and avoidance. 4. stretch pecs, RC and scap strength painfree - Subjective R shoulder pain since March insidiously. Did not get any better. MRI showed showed labral tear. No surgery yet. Injection 3 days ago has not helped. Toss and turns at night. Pain 4/10 intermittently but there more than not. Achy in shoulder and upper R arm. L arm is healthy. 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 Hobbies: takes care of kids. and grandbabies. Is l handed. Basic ADLsa re ok. - Pain R shoulder Pain Intensity (Out of 10): 0 Pain Intensity Range: 0, 4 - Objective Forward head posture adn forward protracted scap. Tender to palpation R supra and anterior shoulder. Full cervical and scap AROM B without pain. Full UE AROM with elevation hurting slightly. ER and IR full and painfree at end range. 2/3 bi and tri reflexes. sensation UE WNL to gross light touch. Strength L UE 4+. R UE shoulder flex 4 and abd 4 and painful. ext rotation 4 and painful, IR 4+, biceps and triceps 4+. wrist 4. + labral test R. Slight + HK and neer. - Goals Goal 1:: Sleep without waking at night Goal Time Frame: 4-6 Weeks Goal 2:: Painfree at rest and 2/10 pain at worst adn intermittent/manageable Goal Time Frame: 4-6 Weeks Goal 3:: Quick DASH score 15 or less Goal Time Frame: 4-6 Weeks Goal 4:: Pt back to normal activities and work without increased pain. Goal Time Frame: 4-6 Weeks - Rehabilitation Potential Physical Therapy Diagnosis: R slap tear Rehabilitation Potential: Questionable - Anticipated Interventions Patient/Client Instruction: Educate patient on: Condition, Plan of Care For the Purpose of:: To decrease pain, To improve nutrient delivery to tissue, To improve muscle performance and motor function Therapeutic Exercise to Include: Strength training, Postural training, Flexibilty training, Active ROM, Dynamic Lumbar Stabilization For the Purpose of:: To decrease pain, To improve nutrient delivery to tissue, To improve muscle performance and motor function, To increase tolerance to activity/condition/position Manual Therapy Techniques to Include: Mobilization, Passive ROM For the Purpose of:: To decrease pain TENS: Yes Cryotherapy (ice pack, ice massage): Yes Ultrasound (thermal/non thermal): Yes - nonthermal R shoulder For the Purpose of:: To decrease pain, To decrease swelling/inflammation Thank you for the opportunity to evaluate your patient. For Medicare and Medicare HMO plans, please review the plan of care and approve it. It will need to be FAXED BACK to us at [phone] for Medicare purposes. For Medicare only, by signing this I certify the plan of care. Please let me know if there are questions or concerns regarding this plan of care. Physician Signature: Date:
--- NOTE | 2020-09-21 12:21 | HP.PTDCSUM ---
It has been my pleasure to treat JUAN MCLAIN . referred by Dr. Jose Adkins DO, with the diagnosis of R SLAP tear for a total of 7 visit(s). Discharge Date: 09/21/20 Please see the following information for a summary of their discharge status. Subjective: Going to gym adn working out. Got 5 weeks of therapy in adn it is still bothering him some. Has been doing furniture delivery adn put it together. r shouldr pain to 8/10 lately. Hard to sleep last night. Frustrating painful and wants to feel normal again. Worse than a month ago. R shoulder Pain Intensity (Out of 10): 8 % Improvement: 20 Objective/Function: Full aROM R UE but very slow and hesitant at end ranges of flexion, abd, IR. Tender over bicpes tendon anterior R shoulder moderately. Strength is functional bu tpainful to ext rotation adn biceps resistance moderately as well as flex/abd minimally. Overall pain is worse after missing therapy the last two weeks adn doing a whole lot of furniture moving at his job. He states compliance with EHP bu tit is not getting him wheree he wants to be. Goal 1:: Sleep without waking at night Goal Progress: Not Progressing Goal 2:: Painfree at rest and 2/10 pain at worst adn intermittent/manageable Goal Progress: Not Progressing Goal 3:: Quick DASH score 15 or less Goal Progress: Not Progressing Goal 4:: Pt back to normal activities and work without increased pain. Goal Progress: Not Progressing Plan: d/c. PT to schedule with doctor for next appropriate step. Discharge Comments: Pt back to doctor for next step options. If there are questions or concerns regarding this patient's physical therapy, please feel free to call me at [phone]. Thank you for the referral of this patient. Sincerely, Mushtaq Ortega, DPT, OCS, CSCS
== END 2020-09-21 12:26 | disposition home or self-care (01) ==
LOC: PT 12:00
PROVIDERS: PCP Internal Medicine; Visit Provider Orthopaedic Surgery
DX: Z47.89 Encounter for other orthopedic aftercare (principal)
CPT/HCPCS: 97014; 97035; 97110; 97161; 97164; G0283

== ENCOUNTER 2020-10-13 09:50 | Day surgery (SDC) | payer MEDICAID, SELFPAY ==
[2020-08-10 10:38] VITALS: BMI 35.9
[2020-10-12 10:45] LABS: Anion Gap 6 (5-15); BUN 9 mg/dL (7-18); BUN/Creat Ratio 8.7 RATIO (10-20); Calcium,Total 9.1 mg/dL (8.5-10.1); Chloride 105 mmol/L (98-107); Creatinine, Serum 1.04 mg/dL (0.70-1.30); EST Glomerular Filtration Rate 82 mL/min (>60); Est Glom Filt Rate - Afr Amer 99 mL/min (>60); Glucose 126 mg/dL (74-106); Potassium 4.1 mmol/L (3.5-5.1); Sodium Level 138 mmol/L (136-145)
[2020-10-12 10:50] LABS: Hemoglobin A1c 4.8 % (3.8-5.6)
[2020-10-13 10:20] VITALS: BP 131/104; PULSE 74; RESP 18; TEMP 37.1; O2SAT 97; BMI 32.3
--- NOTE | 2020-10-13 10:22 | HP.PCM_ITS ---
History and Physical Date of Admission: 10/13/20 Intake Vital Signs 08/10/20 Height 5 ft 10 in 08/10/20 Weight: 250 lb Intake Visit Reasons: RIGHT SHOULDER Accompanied by: Self Is patient in pain?: Yes Pain scale (1-10): 4 Allergies hayfever Allergy (Mild, Uncoded 08/10/20 10:43) unknown Medications lisinopril 10 mg tablet 10 mg PO DAILY #90 tab 05/27/20 [Rx Confirmed 08/10/20] metformin 500 mg tablet 500 mg PO BID #90 tab 05/27/20 [Rx Confirmed 08/10/20] meloxicam 15 mg tablet 15 mg PO DAILY #30 tab 08/10/20 [Rx Confirmed 08/10/20] [facility] Medical History Alcohol abuse (Acute) Carpal tunnel syndrome (Acute) Diabetes (Acute) Seasonal allergies (Acute) Surgical History History of tonsillectomy (Acute) history of tibia/fibula surgery (Acute) Family History Daughter Thyroid disorder Social History (Updated 08/10/20 @ 10:46 by Abbie Davey) household members: none housing: house current occupational status: employed current occupation: Delivery Smoking Status: Former smoker alcohol intake: current alcohol intake frequency: 3 or more drinks per day Alcohol type: beer, hard liquor frequency: 3-4 times per week HPI RIGHT SHOULDER: Details: Parts of this documentation were recorded by a scribe, this documentation accurately reflects the service provided and the decisions made by me, Dr. Jose Adkins, DO 08/10/20 [id number]. JUAN MCLAIN is a 44 year old M here today to establish as a new patient. Patient is here for right shoulder pain. Patient was referred by Dr. Smith. Pain started in March of 2020. Denies any accident or injury. Patient has done physical therapy, with no relief. Patient did have an MRI of his right shoulder on 08/04/2020. Denies previous injections, injuries, and surgeries to his right shoulder. Pain is located: anterior shoulder and deltoid. Denies posterior shoulder pain. Reports ache and dull for descriptive. Denies numbness, stiffness and tingling. Patient has been taking ibuprofen for pain relief. Denies any inflammatory conditions. ROS Const Denies system reviewed and no additional complaints, except as docu, Denies chills, Denies fatigue, Denies fever(s), Denies frequent falls, Denies headache(s) ENT Denies headache(s) Card Denies system reviewed and no additional complaints, except as docu, Denies chest pain, Denies shortness of breath Resp Denies system reviewed and no additional complaints, except as docu, Denies ches t congestion, Denies cough, Denies shortness of breath GI Denies system reviewed and no additional complaints, except as docu, Denies abdominal pain, Denies constipation, Denies incontinent of stools, Denies loose stools Denies system reviewed and no additional complaints, except as docu, Denies urinary incontinence Musc Reports system reviewed and no additional complaints, except as docu, Reports joint pain, Denies numbness, Denies stiffness, Denies tingling Skin/Breast Denies system reviewed and no additional complaints, except as docu, Denies dry skin, Denies redness, Denies lesions, Denies new lesions, Denies non-healing lesions, Denies itching, Denies rash, Denies skin ulcer, Denies sores, Denies wounds Neuro No frequent falls, No headache(s), No numbness, No tingling Endo Denies fatigue Ortho Exam Right Shoulder Testing: Positive Speed's, [place] and lift off (intact) SHOULDER: no ac joint tenderness severe biceps tenderness mild apprehension intact belly press Office Procedures Depo-Medrol 40 mg/mL suspension for injection (methylprednisolone acetate) 40 mg intra-articular ONCE Injections Yes Glenohumeral Injection Right Details: Obtained consent for injection. Under sterile conditions, injected the patient's right GH joint with 4cc bupivacaine, 4cc lidocaine and 1cc depomedrol. The patient tolerated the injection well without any noted complication. Patient should call our office if redness develops, pain worsens or if they have any concerns. Office Meds Depo-Medrol Performing Provider: Jose Adkins DO Administered by: Jose Adkins DO on 08/10/20 11:22 Dose Route Admin Location Lot Number Expiration Date [place] Water Resources Engineer 40 mg intra-articular R glenohumeral joint [id number] 11/19/21 5404-8031-96 PHARMACI/PFIZER Supplemental Info 08/04/2020 MRI right shoulder:Type II SLAP tear mild supraspinatus infraspinatus tendinosis and tendinitisWith concealed undersurface tear of conjoined tendon Assessment & Plan Problems 1. Tear of right glenoid labrum, initial encounter S43.431A Plan Personally reviewed his MRI done at [facility]. Advised and explained to patient he has a tear in the labrum. Biceps can keep irritating his labrum with certain activities. Treatment options: steroid injection, physical therapy or surgical intervention. Explained I recommend steroid injection and physical therapy today first. If therapy and injection fail, will recommend the surgical intervention. Will prescribe Mobic today and order given for physical therapy. Obtained consent for injection. Under sterile conditions, injected the patients right glenohumeral joint. The patient tolerated the injection well without any noted complication. Patient should call our office if redness develops, pain worsens or if they have any concerns. All questions answered. Patient in agreement of plan. Follow up after PT or sooner if pain, swelling, numbness or associated symptoms, or concerns develop. Orders Orders: Ortho Injections Today S43.432N Medications New: meloxicam (Mobic) Do not take in conjunction with other NSAIDs. Tylenol is okay. 15 mg PO DAILY 30 tabs 1RF Coding Diagnoses Tear of right glenoid labrum, initial encounter S43.431A ??Encounter type: initial encounter ??Laterality: right Additional Codes mobile marketing specialist.gh ([id number]) I have re-examined the patient. There are no clinical changes since date of exam Procedure Criteria Procedure Type: Elective COVID Risk Discussion: The surgeon/proceduralist and patient have discussed in detail the risk of exposure to and/or potential harm posed by the COVID-19 virus with having a surgery/procedure at this time versus the risk of delaying the surgery/procedure. It is not possible to know either the risk of delaying the surgery or procedure or chance of getting an infection with perfect accuracy, but a joint decision was made between the patient and the surgeon/proceduralist to proceed at this time with the scheduled surgery/procedure as indicated on the consent form.
[2020-10-13] MEDS: Lactated Ringers 1,000 ML 100 ML IV (10:33)
[2020-10-13 11:16] LABS: Bedside Glucose 109 mg/dL (70-110)
[2020-10-13] MEDS: Bupiv/Epi 0.5% Mpf 30 ML Vial (12:32)
[2020-10-13] MEDS: Epinephrine (1 mg/ml) 1 MG/ML VIAL (12:32)
[2020-10-13] MEDS: Cefazolin 2 GM in 0.9% Normal Saline 100 ML IV (12:32)
--- NOTE | 2020-10-13 12:59 | DCINST_ITS ---
Discharge Diet: No Restrictions Call your doctor if you observe: Shortness of breath, Chest pain Additional Instructions: Leave the dressing on and intact for 48 hours. Then may remove and shower with warm water and antibacterial soap. But do not submerge in tub for 3 weeks. ice shoulder 15 min on and 15 mins off next 72 hrs. May remove sling for elbow range of motion and pendulum exercises may preform active range of motion of shoulder when pain allows. discontinue sling over the course to the week as pain allow. DC completely by 1 week. Do not lift push or pull greater then 5 lbs with operative extremity. You may feel a pop when the biceps tendon retracks do not get concerned, encourage finger and wrist range of motion. If any concerns call Dr. Adkins's office. Allergies/Adverse Reactions: Allergies No Known Allergies Allergy (Verified 10/06/20 11:13) Medications to take at Discharge metformin 500 mg tablet 500 mg PO BID #90 tab 05/27/20 Multivitamin/Iron/Folic Acid [Centrum Adults Tablet] 1 ea PO DAILY 10/06/20 Oxycodone [Oxyir] 5 mg PO Q4H PRN PRN #40 tablet 10/13/20 The following prescriptions were given: Oxycodone [Oxyir] 5 mg PO Q4H PRN PRN #40 tablet PRN Reason: Pain Score 6-10 Transmission Status: Sent to [facility] Primary Care Physician: Indiana Smith MD [Primary Care Provider] - Test Results: Test results from this visit will be discussed in further detail at your follow- up appointment, if applicable. Please Follow Up With: Jose Adkins DO - 2 weeks
[2020-10-13] MEDS: Bupivacaine Mpf 0.5% 30 ML VIAL (13:00)
[2020-10-13] MEDS: morphine PF (epidural) 5 MG/10 ML Vial (13:00)
[2020-10-13] MEDS: MethylPREDNISolone Acetate 40 MG/ML Vial IM (13:00)
--- NOTE | 2020-10-13 13:00 | PCM.OPRPT ---
Report of Operation Date of Procedure: 10/13/20 Description of Surgical Findings:: Preoperative diagnosis: SLAP tear type II, Postoperative diagnosis: SLAP tear type II anterior acromial spurring. Procedure: Arthroscopic labral debridement biceps tenotomy subacromial decompression Anesthesia: General with interscalane block; EBL: 10 cc Complications: none Indication for procedure: 44-year-old male who has had ongoing shoulder pain with MRI and clinical exam indicative of biceps tendinitis as well as superior labral tearing and some impingement signs. He has failed conservative treatment patient did wish to proceed with an arthroscopic subacromial decompression and surgery as indicated. risks benefits and alternatives of the procedure were reviewed including risk of bleeding infection nerve artery tissue damage need for further surgery continued pain postoperative stiffness and need for postoperative physical therapy and continued pain. Procedure : Patient was met in the preoperative holding area the operative extremity was identified by both the patient and the physician and was marked. Patient was met by anesthesia and brought back to the operating room on a wheeled cart. She was transferred to the operating table in the supine position. Anesthesia was started. Patient was then positioned in the beachchair configuration. Bony prominences were well-padded. The patient was prepped and draped in the usual sterile fashion. A timeout was called to ensure the proper patient procedure and extremity were being contemplated. Anatomic landmarks were palpated and marked with a marking pen. A 0.25% Marcaine with epinephrine was injected into the planned portal sites. An 11 blade scalpel was used to make a stab incision in the posterior lateral portal. Arthroscope was inserted into the glenohumeral space with ease. Inflow and outflow tubes were attached and arthroscopic visualization began. An anterior portal was established with an 18-gauge spinal needle. There is noted to be peelback sign with degenerative tearing and fraying of the superior labrum with detachment of the undersurface of the 12 o'clock position. With the use of an ArthroCare wand and shaver labral debridement biceps tenotomy was performed the arthroscope was then repositioned into the subacromial space there was anterior acromial spurring which was removed with a bur bursal tissue was excised with a shaver the wound was thoroughly irrigated through the scope followed by a subacromial injection with 40 mg Depo-Medrol 4 mg of morphine and 8 cc of 0.5% Marcaine plain. Suture portals were closed with 3-0 nylon arthroscopic stitches followed by Xeroform 4 x 4 ABD and a Ioban dressing. A regular sling was placed. Anesthesia was reversed and patient tolerated the procedure well was and was transferred to the PACU all counts were correct patient will follow-up in the office in 2 weeks patient may begin active range of motion immediately
[2020-10-13 13:12] VITALS: BP 131/104; BP 148/99; PULSE 77; RESP 16; TEMP 36.2; O2SAT 98
[2020-10-13 13:15] VITALS: BP 131/104; BP 134/100; PULSE 60; RESP 16; O2SAT 98
[2020-10-13 13:25] LABS: Bedside Glucose 105 mg/dL (70-110)
[2020-10-13 13:30] VITALS: BP 131/104; BP 156/96; PULSE 64; RESP 16; O2SAT 97
[2020-10-13 13:45] VITALS: BP 131/104; BP 156/88; PULSE 59; RESP 16; TEMP 36.1; O2SAT 98
[2020-10-13 14:00] VITALS: BP 131/104
== END 2020-10-13 14:46 | disposition home or self-care (01) ==
LOC: SDC 09:51 → AC 09:51
PROVIDERS: Anesthesiology; PCP Internal Medicine; Referring Provider Orthopaedic Surgery; Visit Provider Orthopaedic Surgery
PROC: (CPT 29827; principal; 2020-10-13 11:40)
DX: S43.431A Superior glenoid labrum lesion of right shoulder, initial encounter (principal); X58.XXXA Exposure to other specified factors, initial encounter; Y93.9 Activity, unspecified; Y92.9 Unspecified place or not applicable; Y99.9 Unspecified external cause status; Z20.828 Contact with and (suspected) exposure to other viral communicable diseases; Z79.899 Other long term (current) drug therapy; Z79.84 Long term (current) use of oral hypoglycemic drugs; E11.9 Type 2 diabetes mellitus without complications; Z87.891 Personal history of nicotine dependence
CPT/HCPCS: 01630; 29826; 29828; 64415; 36415; 80048; 82962; 83036; 87426; C9803; J7120; J2405; J3490

== ENCOUNTER 2020-11-10 15:30 | Outpatient (RCR) | payer MEDICAID, SELFPAY ==
[2020-10-26 08:48] VITALS: BMI 35.9
--- NOTE | 2020-10-28 09:14 | HP.PTEVAL_ITS ---
Patient's Visit Information JUNA MCLAIN Jr. is a 44 year old M referred to Physical Therapy by Dr. Jose Adkins DO with a diagnosis of RIGHT LABRAL DEBRIDEMENT,BICEPS TENOTOMY,SUBACROMIAL DECOMPRESSION. Date of Evaluation: 10/28/20 Physical Therapist: French Roberto, PT, Cert MDT, OCS - Visit Plan Frequency: 2x /Week Duration: 6-8WEEKS Plan: S/P RIGHT LABRAL DEBRIDEMENT ,BICEPS TENOTOMY,SUBACROMIAL DECOMPRESSION 10/26/20,1/2 RETRICTION 6 WKS POST OP SURGERY. SEE GUIDELINES FOR FOR BICEPS TENOTOMY. PT INTERVENTIONS AAAROM/AROM,RTC/SCAPULAR STRENGTHENING,POSTURAL EX'S - Subjective This 44 y/o male presents to physical therapy for right labral debridement,biceps tenotomy abd subacromial decompreession on 10/13/[address] Adkins ar [facility]. Patient was on slong for 2weeks then see Dr 10/26/20 with restriction of 1/2 # post op 6weeks. Patient developed right shoulder pain ,tried PT . Pain presisted thus had MRI . Currently ,has limitations with stiffness . Denies parathesia/tingling . Patient has limitaions with ADL's ,stephany sework tasks and return to job demands. Patient sleeping good at night. Patient surgery affextrs QOL. Patients goal to return to job demands. SOCAIL: single. 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 NEURO: intact. PALAPTION: unremarkable. AROM: sshoulder flexion 150 degrees,abduction 140 degrees,ER 87 degrees,IR L4. MMT: RTC 4/5 ,SUPRSPIANTOUS 4-/5,lateral deltoid 3+/5,anterior deltoid 4-/5 - Goals Goal 1:: Patient to be I with HEP Goal Time Frame: 6-8 Weeks Goal 2:: Patient to improve AROM symmtrical right compared to left for function. Goal Time Frame: 6-8 Weeks Goal 3:: Patient increase strength shoulder 4+/5 to improve function and RTW without limiations Goal Time Frame: 6-8 Weeks Goal 4:: Patient improve quick dash by 5 points or > to improve function. Goal Time Frame: 4-6 Weeks - Rehabilitation Potential Physical Therapy Diagnosis: This patient underwent s/p arthrosopic shoulder with decrease ROM and strength which impairs function ADLS's and housework tasks thus will benifit from skilled PT Rehabilitation Potential: Good - Anticipated Interventions Patient/Client Instruction: Educate patient on: Condition, Plan of Care For the Purpose of:: To decrease pain, To increase ROM, To improve muscle performance and motor function, To improve ability to perform ADL's, To increase tolerance to activity/condition/position, To improve performance and independence with ADL's, To improve ability of physical actions for home/community/work/leisure, To improve health of tissue, To decrease soft tissue restriction, To increase flexibility/ROM Therapeutic Exercise to Include: Strength training, Postural training, Flexibilty training, Passive ROM, Active ROM, Scapular Strength/Stabilization Comment: RTC For the Purpose of:: To decrease pain, To increase ROM, To improve muscle performance and motor function, To improve ability to perform ADL's, To increase tolerance to activity/condition/position, To improve ability of physical actions for home/community/work/leisure, To improve health of tissue, To decrease soft tissue restriction, To increase flexibility/ROM TENS: Yes IF ES: Yes Thermo therapy (hot pack): Yes Ultrasound (thermal/non thermal): Yes For the Purpose of:: To decrease pain, To increase ROM, To improve nutrient delivery to tissue, To increase oxygenation perfusion, To improve health of tissue, To decrease soft tissue restriction Thank you for the opportunity to evaluate your patient. For Medicare and Medicare HMO plans, please review the plan of care and approve it. It will need to be FAXED BACK to us at [phone] for Medicare purposes. For Medicare only, by signing this I certify the plan of care. Please let me know if there are questions or concerns regarding this plan of care. Physician Signature: Date:
--- NOTE | 2021-05-25 07:29 | HP.PTDCSUM ---
It has been my pleasure to treat JUAN MCLAIN . referred by Dr. Jose Adkins DO, with the diagnosis of RIGHT LABRAL DEBRIDEMENT,BICEPS TENOTOMY,SUBACROMIAL DECOMPRESSION for a total of 3 visit(s). Discharge Date: Please see the following information for a summary of their discharge status. Subjective: Doing good .. no new problems Right Shoulder Pain Intensity (Out of 10): 2 % Improvement: 80 Objective/Function: JAH TX WELL WITH ROM AND LIGHT STRENGTHENING RTC AND SCAPULAR Goal 1:: Patient to be I with HEP Goal 2:: Patient to improve AROM symmtrical right compared to left for function. Goal 3:: Patient increase strength shoulder 4+/5 to improve function and RTW without limiations Goal 4:: Patient improve quick dash by 5 points or > to improve function. Plan: S/P RIGHT LABRAL DEBRIDEMENT ,BICEPS TENOTOMY,SUBACROMIAL DECOMPRESSION ON 10/13/20 ,08/22# RETRICTION 6 WKS POST OP SURGERY. SEE GUIDELINES FOR FOR BICEPS TENOTOMY. PT INTERVENTIONS AAAROM/AROM,RTC/SCAPULAR STRENGTHENING,POSTURAL EX'S If there are questions or concerns regarding this patient's physical therapy, please feel free to call me at [phone]. Thank you for the referral of this patient. Sincerely, French Roberto, PT, Cert MDT, OCS Balance/Gait/Functional tests - Balance/Special Test Scores Quick DASH Score: 7.5000
== END 2020-11-10 19:00 | disposition home or self-care (01) ==
LOC: PT 15:30
PROVIDERS: PCP Internal Medicine; Referring Provider Orthopaedic Surgery; Visit Provider Orthopaedic Surgery
DX: S49.81XD Other specified injuries of right shoulder and upper arm, subsequent encounter (principal)
CPT/HCPCS: 97110; 97162

== ENCOUNTER → 2021-06-10 07:27 | Outpatient (CLI) | payer MEDICAID, SELFPAY ==
[2021-06-10 08:32] LABS: Absolute Lymphocyte Count 1.39 X10^3/uL (0.83-4.51); Absolute Neutrophil Count 3.6 X10^3/uL (2.0-7.7); Basophil# 0.05 X10^3/uL; Basophil% 0.9 % (0-1); Eosinophil# 0.18 X10^3/uL; Eosinophils% 3.1 % (0-5); Hematocrit 42.5 % (40-54); Lymphocyte # 1.39 X10^3/ul (0.83-4.51); Lymphocyte % 24.2 % (19-41); Mean Corp Hgb Conc 35.3 g/dL (32-36); Mean Corpuscular Hgb 33.8 pg (27.0-32.0); Mean Corpuscular Volume 95.7 fL (80-94); Mean Platelet Vol. 11.9 fl (6.2-12.0); Monocyte# 0.49 X10^3/uL; Monocyte% 8.5 % (0-10); NRBC Flagged by Analyzer 0 % (0-5); Neutrophil # 3.61 X10^3/uL (2.7-7.7); POSITIVE COUNT YES; Platelet Count 78 K/mm3 (150-450); RBC Distribution Width CV 12.8 % (11.6-14.6); RBC Distribution Width SD 44.8 fl (35.1-43.9); Red Blood Count 4.44 M/mm3 (4.6-6.2); White Blood Count 5.7 K/mm3 (4.4-11.0)
[2021-06-10 08:34] LABS: Differential Indicated SCAN CRITERIA MET
[2021-06-10 08:55] LABS: Platelet Estimate MOD DEC (ADEQ)
[2021-06-10 09:08] LABS: ALB/GLOB Ratio 0.7 RATIO (0.9-2.4); AST(SGOT) 101 U/L (15-37); Alanine Aminotransfer ALT/SGPT 115 U/L (16-61); Albumin, Serum 3.3 g/dL (3.2-5.0); Alkaline Phosphatase 211 U/L (45-117); Amylase 81 U/L (25-115); Anion Gap 13 (5-15); BUN 10 mg/dL (7-18); BUN/Creat Ratio 12.6 RATIO (10-20); Chloride 95 mmol/L (98-107); Creatinine, Serum 0.79 mg/dL (0.70-1.30); EST Glomerular Filtration Rate 112 mL/min (>60); Est Glom Filt Rate - Afr Amer 135 mL/min (>60); Globulin 4.7 g/dL (2.2-4.2); Glucose 349 mg/dL (74-106); Lipase 323 U/L (73-393); Potassium 3.5 mmol/L (3.5-5.1); Sodium Level 131 mmol/L (136-145); Thyroid Stim Hormone (TSH) 1.78 uIU/mL (0.358-3.74)
[2021-06-10 09:13] LABS: Microalbumin,Random Urine 28.1 mg/L (NO RANGE EST.)
== END ==
PROVIDERS: PCP Internal Medicine; Referring Provider Nurse Practitioner Family; Visit Provider Nurse Practitioner Family
DX: R11.2 Nausea with vomiting, unspecified (principal); E11.9 Type 2 diabetes mellitus without complications; F10.10 Alcohol abuse, uncomplicated
CPT/HCPCS: 36415; 80053; 82043; 82150; 82570; 83690; 84443; 85025

== ENCOUNTER 2021-06-24 19:33 | Inpatient (IN) | payer MEDICAID, SELFPAY ==
[2021-06-24 19:34] VITALS: BP 158/96; PULSE 90; RESP 18; TEMP 36.4; O2SAT 95; BMI 34.8
[2021-06-24 19:51] VITALS: BP 158/96; PULSE 90; RESP 18; TEMP 36.4; O2SAT 95
[2021-06-24 20:44] LABS: Absolute Neutrophil Count 3.9 X10^3/uL (2.0-7.7); Basophil# 0.04 X10^3/uL; Basophil% 0.6 % (0-1); Eosinophil# 0.18 X10^3/uL; Eosinophils% 2.6 % (0-5); Hematocrit 44.6 % (40-54); Hemoglobin 15.7 g/dL (13.0-16.5); Mean Corp Hgb Conc 35.2 g/dL (32-36); Mean Corpuscular Hgb 33.5 pg (27.0-32.0); Mean Corpuscular Volume 95.1 fL (80-94); Mean Platelet Vol. 11.1 fl (6.2-12.0); Monocyte# 0.56 X10^3/uL; NRBC Flagged by Analyzer 0 % (0-5); Neutrophil # 3.88 X10^3/uL (2.7-7.7); Neutrophil % 55.5 % (47-70); Platelet Count 113 K/mm3 (150-450); RBC Distribution Width CV 12.9 % (11.6-14.6); RBC Distribution Width SD 44.5 fl (35.1-43.9); Red Blood Count 4.69 M/mm3 (4.6-6.2)
[2021-06-24 20:54] LABS: Amphetamine Urine VISTA NEGATIVE (<1000 ng/mL); Barbiturate Urine VISTA NEGATIVE (< 200 ng/mL); Benzodiazepine Urine VISTA NEGATIVE (< 200 ng/mL); Cocaine Urine VISTA NEGATIVE (< 300 ng/mL); Ecstacy Urine VISTA NEGATIVE (< 500 ng/mL); Methadone Urine VISTA NEGATIVE (< 300 ng/mL); PCP Urine VISTA NEGATIVE (< 25 ng/mL); THC Urine VISTA POSITIVE (< 50 ng/mL); Vista UDS pH Range 5
[2021-06-24 21:09] LABS: AST(SGOT) 143 U/L (15-37); Alanine Aminotransfer ALT/SGPT 137 U/L (16-61); Albumin, Serum 3.3 g/dL (3.2-5.0); Alkaline Phosphatase 162 U/L (45-117); Anion Gap 10 (5-15); BUN 3 mg/dL (7-18); BUN/Creat Ratio 3.5 RATIO (10-20); Bilirubin, Direct 0.91 mg/dL (0.00-0.30); Calcium,Total 8.5 mg/dL (8.5-10.1); Chloride 102 mmol/L (98-107); Creatinine, Serum 0.85 mg/dL (0.70-1.30); EST Glomerular Filtration Rate 103 mL/min (>60); Est Glom Filt Rate - Afr Amer 125 mL/min (>60); Estimated Creatinine Clearance 112.12 ml/min; Globulin 4.8 g/dL (2.2-4.2); Glucose 441 mg/dL (74-106); Lipase 428 U/L (73-393); Potassium 3.8 mmol/L (3.5-5.1); Protein, Total 8.1 g/dL (6.4-8.2); Sodium Level 138 mmol/L (136-145)
--- NOTE | 2021-06-24 22:05 | EDS_ITS ---
HPI History of Present Illness Chief Complaint: Substance Abuse Narrative Narrative: Patient is a 45-year-old male with past medical history of diabetes and alcohol abuse. He states he typically would drink 1 bottle of [place] per day. However he has stopped doing this recently has changed to drinking 3-4 4 [place]'s per day. He states that he has talked to his family doctor about possible quitting but was advised he cannot do this cold turkey. He states that he is not to the point where he wishes to try quitting alcohol and go through detox. Secondary to this he comes to the hospital for evaluation. Patient states that his last drink was approximately 1 to 2 hours prior to arrival. [facility] Medical History Alcohol abuse Carpal tunnel syndrome Diabetes Nausea & vomiting Seasonal allergies Home Medications [id number] acid 1 ea PO DAILY 10/06/20 [History Last Taken 09/22 10/11] blood sugar diagnostic #50 ea 06/09/21 [Rx Last Taken Unknown] blood-glucose meter #1 ea 06/09/21 [Rx Last Taken Unknown] insulin glargine 100 unit/mL subcutaneous solution 10 unit SC BID #10 ml 06/09/21 [Rx Last Taken Unknown] lancets 28 gauge #50 ea 06/09/21 [Rx Last Taken Unknown] metformin 500 mg tablet 500 mg PO BID #90 tab 06/09/21 [Rx Last Taken Unknown] alcohol swabs 1 pad TOPICAL TID #200 ea 06/16/21 [Rx Last Taken Unknown] insulin glargine 100 unit/mL (3 mL) subcutaneous pen 10 unit SUBCUT BID #15 ml 06/16/21 [Rx Last Taken Unknown] pen needle, diabetic 31 gauge x 5/16 #1200 ea 06/16/21 [Rx Last Taken Unknown] Allergy/AdvReac Type Severity Reaction Status Date / Time No Known Allergies Allergy Verified 06/24/21 19:36 Family History Daughter Thyroid disorder Surgical History history of tibia/fibula surgery History of tonsillectomy Social History household members: none housing: house current occupational status: employed current occupation: Delivery Smoking Status: Never smoker alcohol intake: current alcohol intake frequency: 3 or more drinks per day Alcohol type: beer and hard liquor frequency: 3-4 times per week ROS ROS ED Constitutional Constitutional ED: Denies chills or fever(s) ENT ENT ED: Denies sore throat Cardiovascular Cardiovascular: Denies chest pain Respiratory/Chest Respiratory/Chest: Denies cough or dyspnea Gastrointestinal Gastrointestinal: Denies abdominal pain, diarrhea, nausea or vomiting Genitourinary Genitourinary ED: Denies dysuria Musculoskeletal Musculoskeletal: Denies myalgias Integumentary Denies rash Neurologic Neurologic: Denies headache(s) Hematologic/Lymphatic Hematologic/Lymphatic: Denies easy bleeding or easy bruising EXAM Physical Exam Const Vital Signs: 06/24/21 19:34 06/24/21 19:51 Temperature 97.6 F L 97.6 F L Temperature Source Temporal Temporal Pulse Rate 90 90 Respiratory Rate 18 18 Blood Pressure 158/96 H 158/96 H Blood Pressure Mean 116 116 Blood Pressure Source Monitor Blood Pressure Position Sitting Blood Pressure Location Left Arm Pulse Ox 95 95 Oxygen Delivery Method Room Air Room Air Positive well nourished, well developed and obese General Appearance ED: well developed Nutritional Appearance: obese HEENT Reports moist mucous membranes Eyes PERRL and EOMs intact bilaterally Eyes Narrative: Pupils are slightly sluggish to respond to light and accommodation consistent with alcohol use General Eye ED: Negative for scleral icterus Neck supple Resp normal respiratory effort and clear to auscultation bilaterally Cardio regular rate and regular rhythm Rate: other Other Details: Radial pulses are +2-4 bilaterally are equal and symmetric GI normal to inspection, nondistended, normoactive bowel sounds, non-tender, non- distended and no masses GI Narrative: Abdomen is obese soft nontender nondistended with normal active bowel sounds no voluntary guarding or rigidity no pulsatile mass no organomegaly Auscultation: normoactive bowel sounds Palpation: soft Extremity normal to inspection Neuro oriented x3 and CN's II-XII intact bilaterally Sensorium / Orientation: alert Motor Exam: strength 5/5 throughout Psych Psych Narrative: Patient has a flat/depressed affect Skin no rashes or lesions noted General Skin Exam: Negative for jaundice MDM MDM MDM Narrative Medical decision making narrative: Patient presented to the ER in no acute distress and voiced concern/need for alcohol detox. A basic work-up was ob tained which shows chronic changes to his liver enzymes consistent with his alcohol abuse as well as an elevated alcohol level consistent with his recent ingestion. He is a type II diabetic and his blood sugar is elevated but he does not have changes to suggest DKA. Therefore at this time he is medically cleared and I discussed the case with medicine on-call who agrees to accept the patient at this time for placement in detox. Lab Data Attestation: I reviewed the patient's lab results. Labs: Laboratory Results - last 24 hr 06/24/21 06/24/21 06/24/21 19:45 20:35 20:35 WBC 7.0 RBC 4.69 Hgb 15.7 Hct 44.6 MCV 95.1 H MCH 33.5 H MCHC 35.2 RDW Std Deviation 44.5 H RDW Coeff of Patito 12.9 Plt Count 113 L MPV 11.1 Immature Gran % (Auto) 0.300 Neut % (Auto) 55.5 Lymph % (Auto) 33.0 Barry % (Auto) 8.0 Eos % (Auto) 2.6 Baso % (Auto) 0.6 Absolute Neuts (auto) 3.9 Absolute Lymphs (auto) 2.30 Nucleated RBC % 0 Sodium 138 Potassium 3.8 Chloride 102 Carbon Dioxide 26.0 Anion Gap 10 BUN 3 L Creatinine 0.85 Estim Creat Clear Calc 112.12 Est GFR (MDRD) Af Amer 125 Est GFR (MDRD) Non-Af 103 BUN/Creatinine Ratio 3.5 L Glucose 441 H Calcium 8.5 Total Bilirubin 1.60 H Direct Bilirubin 0.91 H AST 143 H ALT 137 H Alkaline Phosphatase 162 H Total Protein 8.1 Albumin 3.3 Globulin 4.8 H Lipase 428 H Urine Opiates Screen NEGATIVE Urine Methadone Screen NEGATIVE Ur Barbiturates Screen NEGATIVE Ur Phencyclidine Scrn NEGATIVE Ur Amphetamines Screen NEGATIVE U Methamphetamin-MDMA NEGATIVE U Benzodiazepines Scrn NEGATIVE Urine Cocaine Screen NEGATIVE U Cannabinoids Screen POSITIVE H Ur Drug Screen Comment Ethyl Alcohol 06/24/21 20:35 WBC RBC Hgb Hct MCV MCH MCHC RDW Std Deviation RDW Coeff of Patito Plt Count MPV Immature Gran % (Auto) Neut % (Auto) Lymph % (Auto) Barry % (Auto) Eos % (Auto) Baso % (Auto) Absolute Neuts (auto) Absolute Lymphs (auto) Nucleated RBC % Sodium Potassium Chloride Carbon Dioxide Anion Gap BUN Creatinine Estim Creat Clear Calc Est GFR (MDRD) Af Amer Est GFR (MDRD) Non-Af BUN/Creatinine Ratio Glucose Calcium Total Bilirubin Direct Bilirubin AST ALT Alkaline Phosphatase Total Protein Albumin Globulin Lipase Urine Opiates Screen Urine Methadone Screen Ur Barbiturates Screen Ur Phencyclidine Scrn Ur Amphetamines Screen U Methamphetamin-MDMA U Benzodiazepines Scrn Urine Cocaine Screen U Cannabinoids Screen Ur Drug Screen Comment Ethyl Alcohol 212.0 Discharge Plan Triage Chief Complaint: Substance Abuse ED Provider: Steven Treviño Dx/Rx/DC Orders Clinical Impression: Alcohol abuse, Type 2 diabetes mellitus Primary Care Provider: Indiana Smith Disposition Disposition: Acute Care Hospital [facility]
[2021-06-24 22:13] VITALS: BP 103/94; PULSE 108; RESP 18; TEMP 36.4; O2SAT 95
[2021-06-24 22:14] VITALS: RESP 16
--- NOTE | 2021-06-24 22:14 | CM.ED ---
INES Note Referral Source: Case Find Referrral Reason: YANET CHACON met with patient. He is familiar with the [facility] program as he has been here in the [facility] program in the past. He reports he is detoxing from alcohol. Reports use of 4 24 ounces of FourLoco. No current linkage with [facility]. Last drink 7pm tonight. INES called [facility] and it went to voice mail. INES left message on confidential voice mail of [facility]igator regarding patient and his admission to [facility]. Plan: YANET GOODWIN
--- NOTE | 2021-06-24 22:35 | HP.PCM.HOS_ITS ---
HPI - General General Date of Admission: 06/24/21 Date of Service: 06/24/21 Chief Complaint: alcohol withdrawal HPI Narrative JUAN MCLAIN, is a 45 M who presents seeking treatment for alcohol withdrawal. Patient drinks roughly 3 large beers per day. Patient had been sober for period time but then got drunk with his sister in August and has been drinking heavily ever since. He is requesting treatment for acute alcohol withdrawal. Patient last drink was around 1900 today. [facility] Medical History Alcohol abuse Carpal tunnel syndrome Diabetes Nausea & vomiting Seasonal allergies Home Medications wzdrffgdxdeh-cixg-pvacb acid 1 ea PO DAILY 10/06/20 [History Last Taken ] blood sugar diagnostic #50 ea 06/09/21 [Rx Last Taken Unknown] blood-glucose meter #1 ea 06/09/21 [Rx Last Taken Unknown] insulin glargine 100 unit/mL subcutaneous solution 10 unit SC BID #10 ml 06/09/21 [Rx Last Taken Unknown] lancets 28 gauge #50 ea 06/09/21 [Rx Last Taken Unknown] metformin 500 mg tablet 500 mg PO BID #90 tab 06/09/21 [Rx Last Taken Unknown] alcohol swabs 1 pad TOPICAL TID #200 ea 06/16/21 [Rx Last Taken Unknown] insulin glargine 100 unit/mL (3 mL) subcutaneous pen 10 unit SUBCUT BID #15 ml 06/16/21 [Rx Last Taken Unknown] pen needle, diabetic 31 gauge x 5/16 #1200 ea 06/16/21 [Rx Last Taken Unknown] Allergy/AdvReac Type Severity Reaction Status Date / Time No Known Allergies Allergy Verified 06/24/21 19:36 Family History (Updated 06/24/21 @ 22:[address] Mushtaq Bell DO) Daughter Thyroid disorder Other Alcoholism in family Surgical History history of tibia/fibula surgery History of tonsillectomy Social History household members: none housing: house current occupational status: employed current occupation: Delivery Smoking Status: Never smoker alcohol intake: current alcohol intake frequency: 3 or more drinks per day Alcohol type: beer and hard liquor frequency: 3-4 times per week OLIVER BOYD Narrative Has a chronic abdominal distention. Does have some abdominal pain. Headache. All review of systems were negative except as mentioned above in the history of present illness and the other review of systems. Vital Signs Vital Signs Vital Signs: 06/24/21 19:34 06/24/21 19:51 06/24/21 22:13 Temperature 36.4 C L 36.4 C L 36.4 C L Temperature Source Temporal Temporal Temporal Pulse Rate 90 90 108 H Respiratory Rate 18 18 18 Blood Pressure 158/96 H 158/96 H 103/94 H Blood Pressure Mean 116 116 97 Blood Pressure Source Monitor Blood Pressure Position Sitting Blood Pressure Location Left Arm Pulse Ox 95 95 95 Oxygen Delivery Method Room Air Room Air Room Air 06/24/21 22:14 Temperature Temperature Source Pulse Rate Respiratory Rate 16 Blood Pressure Blood Pressure Mean Blood Pressure Source Blood Pressure Position Blood Pressure Location Pulse Ox Oxygen Delivery Method Weight Weight: 110.223 kg Body Mass Index (BMI) 34.8 Physical Exam Const alert General Appearance: cooperative HEENT normocephalic Resp normal respiratory effort, no retractions, no use of accessory muscles and clear to auscultation bilaterally Cardio regular rate, regular rhythm, S1 normal heart sound and S2 normal heart sound GI GI Narrative: Distended. Right upper quadrant tenderness. Appears to have some hepatomegaly roughly about a centimeter below the costal margin. Results Lab / Micro Data Attestation: I reviewed the patient's lab results. Result Diagrams: 06/24/21 20:35 06/24/21 20:35 Labs: Laboratory Results - last 24 hr 06/24/21 19:45: Urine Opiates Screen NEGATIVE, Urine Methadone Screen NEGATIVE, Ur Barbiturates Screen NEGATIVE, Ur Phencyclidine Scrn NEGATIVE, Ur Amphetamines Screen NEGATIVE, U Methamphetamin-MDMA NEGATIVE, U Benzodiazepines Scrn NEGAT ALLEN, Urine Cocaine Screen NEGATIVE, U Cannabinoids Screen POSITIVE H, Ur Drug Screen Comment 06/24/21 20:35: WBC 7.0, RBC 4.69, Hgb 15.7, Hct 44.6, MCV 95.1 H, MCH 33.5 H, MCHC 35.2, RDW Std Deviation 44.5 H, RDW Coeff of Patito 12.9, Plt Count 113 L, MPV 11.1, Immature Gran % (Auto) 0.300, Neut % (Auto) 55.5, Lymph % (Auto) 33.0, Hyde % (Auto) 8.0, Eos % (Auto) 2.6, Baso % (Auto) 0.6, Absolute Neuts (auto) 3.9, Absolute Lymphs (auto) 2.30, Nucleated RBC % 0 06/24/21 20:35: Sodium 138, Potassium 3.8, Chloride 102, Carbon Dioxide 26.0, Anion Gap 10, BUN 3 L, Creatinine 0.85, Estim Creat Clear Calc 112.12, Est GFR (MDRD) Af Amer 125, Est GFR (MDRD) Non-Af 103, BUN/Creatinine Ratio 3.5 L, Glucose 441 H, Calcium 8.5, Total Bilirubin 1.60 H, Direct Bilirubin 0.91 H, AST 143 H, ALT 137 H, Alkaline Phosphatase 162 H, Total Protein 8.1, Albumin 3.3, Globulin 4.8 H, Lipase 428 H 06/24/21 20:35: Ethyl Alcohol 212.0 Micro: Microbiology 06/24/21 20:30 Nasal Secretion SARS-CoV-2 Antigen (Rapid) - Final Assessment & Plan Assessment/Plan (1) Alcohol withdrawal: QUALIFIERS: Complication of substance-induced condition: uncomplicated Qualified Code(s): F10.230 - Alcohol dependence with withdrawal, uncomplicated (2) Transaminitis: PLAN: 1. Acute alcohol withdrawal * No active symptoms at this time as patient has just drank a few hours prior to presentation * Patient was started on phenobarbital taper plus other agents to help with other somatic complaints that may be correlated with his alcohol withdrawal * Thiamine and folate * Addiction medicine to facilitate outpatient programs upon 2. Transaminitis * Also elevated bilirubin * Unclear if this is acute versus chronic. * Will continue to follow his LFTs * Consider ultrasound if continue to be elevated or are worsening 3. Diabetes mellitus type 2 * Uncontrolled * Recently started on insulin glargine which will be continued * A1c was 13.6 from June 09 so no need to recheck another * Sign scale insulin. Anticipate patient will need to have further adjustments as hospitalization 4. VTE prophylaxis: Low risk not indicated at this time. Charges/Coding Visit Charges Inpatient E&M: 66716 Init Hosp L2
[2021-06-24 23:39] VITALS: BP 123/77; PULSE 89; RESP 18; TEMP 36.8; O2SAT 93
[2021-06-24 23:44] VITALS: BMI 34.2
[2021-06-25] MEDS: Phenobarbital 32.4 MG Tablet 64.8 MG PO ×7 (00:11→23:30)
[2021-06-25] MEDS: Ondansetron ODT 4 MG Tablet 8 MG PO (00:11)
[2021-06-25] MEDS: traZODone 100 MG Tablet PO (00:15)
[2021-06-25] MEDS: Gabapentin 300 MG Capsule PO (00:18)
[2021-06-25 00:26] LABS: Bedside Glucose 464 mg/dL (70-110)
[2021-06-25 04:10] VITALS: BP 118/68; PULSE 76; RESP 16; TEMP 37.2; O2SAT 96
[2021-06-25 06:50] LABS: Bedside Glucose 291 mg/dL (70-110)
[2021-06-25 07:44] LABS: ALB/GLOB Ratio 0.7 RATIO (0.9-2.4); AST(SGOT) 105 U/L (15-37); Alanine Aminotransfer ALT/SGPT 118 U/L (16-61); Alkaline Phosphatase 142 U/L (45-117); Anion Gap 8 (5-15); BUN 4 mg/dL (7-18); BUN/Creat Ratio 6.6 RATIO (10-20); Calcium,Total 8.4 mg/dL (8.5-10.1); Chloride 99 mmol/L (98-107); Creatinine, Serum 0.61 mg/dL (0.70-1.30); EST Glomerular Filtration Rate 151 mL/min (>60); Est Glom Filt Rate - Afr Amer 183 mL/min (>60); Estimated Creatinine Clearance 156.24 ml/min; Globulin 4.1 g/dL (2.2-4.2); Glucose 294 mg/dL (74-106); Potassium 3.3 mmol/L (3.5-5.1); Protein, Total 7.1 g/dL (6.4-8.2); Sodium Level 134 mmol/L (136-145)
--- NOTE | 2021-06-25 08:04 | PN.HOSP_ITS ---
Subjective Subjective Patient has history of chronic alcohol use and dependence. Admitted with alcohol withdrawal syndrome. History of multiple alcohol relapses. Drinks more than a pint of whiskey and beers. Objective Data Objective Data Vital Signs: Vital Signs Temp Pulse Resp BP Pulse Ox 99 F 76 16 118/68 96 06/25/21 04:10 06/25/21 04:10 06/25/21 04:10 06/25/21 04:10 06/25/21 04:10 Oxygen Delivery Method Room Air Weight: 238 lb 15.697 oz Body Mass Index (BMI) 34.2 Lab / Micro Data Result Diagrams: 06/24/21 20:35 06/25/21 06:10 Labs: Laboratory Results - last 24 hr 06/24/21 19:45: Urine Opiates Screen NEGATIVE, Urine Methadone Screen NEGATIVE, Ur Barbiturates Screen NEGATIVE, Ur Phencyclidine Scrn NEGATIVE, Ur Amphetamines Screen NEGATIVE, U Methamphetamin-MDMA NEGATIVE, U Benzodiazepines Scrn NEGATIVE, Urine Cocaine Screen NEGATIVE, U Cannabinoids Screen POSITIVE H, Ur Drug Screen Comment 06/24/21 20:35: WBC 7.0, RBC 4.69, Hgb 15.7, Hct 44.6, MCV 95.1 H, MCH 33.5 H, MCHC 35.2, RDW Std Deviation 44.5 H, RDW Coeff of Patito 12.9, Plt Count 113 L, MPV 11.1, Immature Gran % (Auto) 0.300, Neut % (Auto) 55.5, Lymph % (Auto) 33.0, Harmon % (Auto) 8.0, Eos % (Auto) 2.6, Baso % (Auto) 0.6, Absolute Neuts (auto) 3.9, Absolute Lymphs (auto) 2.30, Nucleated RBC % 0 06/24/21 20:35: Sodium 138, Potassium 3.8, Chloride 102, Carbon Dioxide 26.0, Anion Gap 10, BUN 3 L, Creatinine 0.85, Estim Creat Clear Calc 112.12, Est GFR (MDRD) Af Amer 125, Est GFR (MDRD) Non-Af 103, BUN/Creatinine Ratio 3.5 L, Glucose 441 H, Calcium 8.5, Total Bilirubin 1.60 H, Direct Bilirubin 0.91 H, AST 143 H, ALT 137 H, Alkaline Phosphatase 162 H, Total Protein 8.1, Albumin 3.3, Globulin 4.8 H, Lipase 428 H 06/24/21 20:35: Ethyl Alcohol 212.0 06/25/21 00:10: POC Glucose 464 H* 06/25/21 06:10: Sodium 134 L, Potassium 3.3 L, Chloride 99, Carbon Dioxide 27.0, Anion Gap 8, BUN 4 L, Creatinine 0.61 L, Estim Creat Clear Calc 156.24, Est GFR (MDRD) Af Amer 183, Est GFR (MDRD) Non-Af 151, BUN/Creatinine Ratio 6.6 L, Glucose 294 H, Calcium 8.4 L, Total Bilirubin 1.40 H, AST 105 H, ALT 118 H, Alkaline Phosphatase 142 H, Total Protein 7.1, Albumin 3.0 L, Globulin 4.1, Albumin/Globulin Ratio 0.7 L 06/25/21 06:47: POC Glucose 291 H Micro: Microbiology 06/24/21 20:30 Nasal Secretion SARS-CoV-2 Antigen (Rapid) - Final Physical Exam Narrative Mild nausea yesterday but no vomiting. Denies right upper quadrant pain, history of GI bleed or jaundice. Mild thrombocytopenia. General: Awake, oriented x3, Cooperative HEENT: Atraumatic, PERRLA, EOMI, Normocephalic Oral: No Gingival or Mucosal Lesions/ Ulcerations Neck: Supple, No JVD, Negative Carotid Bruits Lungs: Air entry diminished in bilateral lung bases. No crepitation/rhonchi Cardiovascular: Regular rate, Regular Rhythm, Normal S1, Normal S2, No murmurs Abdomen: Bowel Sounds Present, Soft, Non Tender, Non-Distended : No renal angle tenderness. No suprapubic tenderness. Extremities: No edema, Capillary Refill Less than 3 Seconds Skin: No rashes, No breakdown Musculoskeletal: Tremors. No Tenderness to Palpation of Joints or Extremities Neurological: Cranial nerves II-XII grossly intact, DTR 2+/4 and Symmetrical, Neuro grossly intact Psych/Mental Status: Normal Affect, Appropriate. Assessment & Plan Assessment/Plan (1) Alcohol withdrawal: QUALIFIERS: Complication of substance-induced condition: uncomplicated Qualified Code(s): F10.230 - Alcohol dependence with withdrawal, uncomplicated (2) Transaminitis: PLAN: 1. Acute alcohol withdrawal with history of chronic alcohol use, dependence and tolerance: Patient started drinking alcohol at the age of 14. Heavy drinker. On phenobarbital based other adjunctive medications. On thiamine and folic acid. Mild hypokalemia, potassium getting corrected. Serum mag and Phos ordered. Discussed with 180 supportive employment case manager patient has history of psychiatric disorder and probably will need inpatient alcohol rehab. 2. Chronic alcoholic hepatitis: ALT elevated since February 2019. ALT 118. AST 105. TB 1.4, alk phos 142. Right upper quadrant sonogram ordered. Currently patient does not have abdominal pain or RUQ tenderness 3. Diabetes mellitus type 2, uncontrolled: A1c 13.6 in June 09. On Lantus 10 units subcutaneous twice daily. On Accu-Cheks with sliding scale. Depending on sliding scale might need scheduled Humalog insulin. 4. VTE prophylaxis: Low risk not indicated at this time. Charges/Coding Visit Charges Inpatient E&M: 56146 Subs Hosp L2
[2021-06-25 08:27] LABS: International Normalized Ratio 1.4; Prothrombin Time (Protime)PT. 16.3 SECONDS (11.7-14.9)
[2021-06-25] MEDS: Thiamine Hydrochloride 100 MG Tablet PO (08:39)
[2021-06-25] MEDS: Multivitamins,Ther W-Minerals Tablet 1 TABLET PO (08:39)
[2021-06-25] MEDS: metFORMIN HCl 500 MG Tablet PO ×2 (08:39→17:24)
[2021-06-25] MEDS: Folic Acid 1 MG Tablet PO (08:39)
[2021-06-25] MEDS: Insulin Lispro 100 UNIT/ML INSULN.PEN SC ×4 (08:56→21:47)
[2021-06-25 09:55] VITALS: BP 130/74; PULSE 83; RESP 14; TEMP 36.8; O2SAT 96
--- NOTE | 2021-06-25 10:49 | US_ITS ---
STUDY: ABDOMINAL ULTRASOUND - RIGHT UPPER QUADRANT REASON FOR VISIT: Male, 45 years old elevated LFTs TECHNIQUE: Ultrasound evaluation of the right upper quadrant was performed with real-time and static askew-scale imaging. TECHNICAL QUALITY: Limited. Examination limited by bowel gas. COMPARISON: None. FINDINGS: Liver: The liver measures 24.1 cm. There is increased echogenicity consistent with fatty infiltration. Focal fatty sparing adjacent to the gallbladder. The bile ducts are within normal limits. There is hepatic color flow. The direction of portal flow is hepatopetal. There is no demonstrated mass lesion. Gallbladder: Distended gallbladder. The gallbladder wall measures 3 mm. There is a negative sonographic Guthrie''s sign. There is a trace of pericholecystic fluid. There is a solitary echogenic gallstone within the gallbladder. Common Bile Duct (C.B.D.): The common bile duct measures 8 mm. Pancreas: Visualized pancreas is echogenic Right Kidney: Normal size of the right kidney. The right kidney measures 12.7 x 6.3 x 7.7 cm. Normal renal cortex. The right cortex measures 2.2 cm. There is no demonstrated renal mass or cyst. There is no right hydronephrosis. US/Abdomen Limited IMPRESSION: Hepatomegaly with diffuse fatty infiltration, no discrete lesion Gallbladder is distended at 13.3 mm. There is a solitary gallstone, trace pericholecystic fluid and the biliary dilatation to 8 mm. Findings are equivocal for gallbladder disease. If cholecystitis is a strong clinical concern, a HIDA scan may be of benefit for further evaluation Electronically Signed: Olvin Taveras MD at 16:53 EDT , Service support ,
[2021-06-25 10:58] LABS: Magnesium 1.8 mg/dL (1.6-2.6); Phosphorus 3.7 mg/dL (2.5-4.9)
--- NOTE | 2021-06-25 11:20 | ADDICTION ---
This show card writer attempted to meet with PT. PT was asleep and did not rouse to verbal queuing. This show card writer will attempt to meet with PT at next visit on 06/26/21.
[2021-06-25 12:05] LABS: Bedside Glucose 353 mg/dL (70-110)
[2021-06-25] MEDS: Potassium Chloride Oral Tablet 20 MEQ 40 MEQ PO ×2 (12:07→17:23)
--- NOTE | 2021-06-25 12:10 | NURSING ---
npo for abd ultrasound
[2021-06-25 15:13] VITALS: BP 125/89; PULSE 67; RESP 16; TEMP 36.7; O2SAT 95
[2021-06-25 17:25] LABS: Bedside Glucose 217 mg/dL (70-110)
[2021-06-25 20:33] VITALS: BP 130/88; PULSE 74; RESP 16; TEMP 37.3; O2SAT 96
[2021-06-25 21:56] LABS: Bedside Glucose 333 mg/dL (70-110)
[2021-06-26 02:36] VITALS: BP 135/86; PULSE 93; RESP 18; TEMP 36.6; O2SAT 94
[2021-06-26] MEDS: Phenobarbital 32.4 MG Tablet 64.8 MG PO ×5 (03:49→19:58)
[2021-06-26] MEDS: Insulin Lispro 100 UNIT/ML INSULN.PEN SC ×4 (06:36→22:38)
[2021-06-26 07:06] LABS: Bedside Glucose 322 mg/dL (70-110)
[2021-06-26 08:07] VITALS: BP 123/82; PULSE 74; RESP 16; O2SAT 97
[2021-06-26] MEDS: Folic Acid 1 MG Tablet PO (08:12)
[2021-06-26] MEDS: Multivitamins,Ther W-Minerals Tablet 1 TABLET PO (08:12)
[2021-06-26] MEDS: Potassium Chloride Oral Tablet 20 MEQ 40 MEQ PO (08:12)
[2021-06-26] MEDS: metFORMIN HCl 500 MG Tablet PO ×2 (08:12→16:38)
[2021-06-26] MEDS: Thiamine Hydrochloride 100 MG Tablet PO (08:12)
--- NOTE | 2021-06-26 11:11 | PN.HOSP_ITS ---
Subjective Subjective Denies abdominal pain. Alcohol withdrawal symptoms are better. Objective Data Objective Data Vital Signs: Vital Signs Temp Pulse Resp BP Pulse Ox 98 F 74 16 123/82 H 97 06/26/21 02:36 06/26/21 08:07 06/26/21 08:07 06/26/21 08:07 06/26/21 08:07 Oxygen Delivery Method Room Air Weight: 238 lb 15.697 oz Body Mass Index (BMI) 34.2 Intake & Output: Intake and Output for Last 24 Hours 06/24/21 06/25/21 06/26/21 23:59 23:59 23:59 Intake Total 1175 / 1175 300 / 300 Balance 1175 / 1175 300 / 300 Lab / Micro Data Result Diagrams: 06/24/21 20:35 06/25/21 06:10 Labs: Laboratory Results - last 24 hr 06/25/21 11:59: POC Glucose 353 H 06/25/21 17:19: POC Glucose 217 H 06/25/21 21:45: POC Glucose 333 H 06/26/21 06:34: POC Glucose 322 H Micro: Microbiology 06/24/21 20:30 Nasal Secretion SARS-CoV-2 Antigen (Rapid) - Final Radiography Diagnostic Testing: Radiology Impression Abdomen Ultrasound 06/25/21 10:49 IMPRESSION: Hepatomegaly with diffuse fatty infiltration, no discrete lesion Gallbladder is distended at 13.3 mm. There is a solitary gallstone, trace pericholecystic fluid and the biliary dilatation to 8 mm. Findings are equivocal for gallbladder disease. If cholecystitis is a strong clinical concern, a HIDA scan may be of benefit for further evaluation Electronically Signed: Olvin Taveras MD at 16:53 EDT , Service support , Physical Exam Narrative Denies right upper quadrant pain, history of GI bleed or jaundice. Mild thrombocytopenia. General: Awake, oriented x3, Cooperative HEENT: Atraumatic, PERRLA, EOMI, Normocephalic Oral: No Gingival or Mucosal Lesions/ Ulcerations Neck: Supple, No JVD, Negative Carotid Bruits Lungs: Air entry diminished in bilateral lung bases. No crepitation/rhonchi Cardiovascular: Regular rate, Regular Rhythm, Normal S1, Normal S2, No murmurs Abdomen: Bowel Sounds Present, Soft, Non Tender, Non-Distended : No renal angle tenderness. No suprapubic tenderness. Extremities: No edema, Capillary Refill Less than 3 Seconds Skin: No rashes, No breakdown Musculoskeletal: Tremors. No Tenderness to Palpation of Joints or Extremities Neurological: Cranial nerves II-XII grossly intact, DTR 2+/4 and Symmetrical, Neuro grossly intact Psych/Mental Status: Normal Affect, Appropriate. Assessment & Plan Assessment/Plan (1) Alcohol withdrawal: QUALIFIERS: Complication of substance-induced condition: uncomplicated Qualified Code(s): F10.230 - Alcohol dependence with withdrawal, uncomplicated (2) Transaminitis: PLAN: 1. Acute alcohol withdrawal with history of chronic alcohol use, dependence and tolerance: Patient started drinking alcohol at the age of 14. Heavy drinker. On phenobarbital based other adjunctive medications. On thiamine and folic acid. Mild hypokalemia, potassium getting corrected. Serum mag and Phos ordered. Discussed with 180 returned case inspector patient has history of psychiatric disorder and probably will need inpatient alcohol rehab. 2. Chronic alcoholic hepatitis: ALT elevated since February 2019. ALT 118. AST 105. TB 1.4, alk phos 142. 06/26: Patient right upper quadrant sonogram shows hepatomegaly with diffuse fatty infiltration but no discrete lesion. Solitary gallstone, GB distended with trace pericholecystic fluid and biliary dilatation to 8 mm. Patient does not have abdominal pain or right upper quadrant tenderness. CMP every 72 hours. 3. Diabetes mellitus type 2, uncontrolled: A1c 13.6 in June 09. On Lantus 10 units subcutaneous twice daily. On Accu-Cheks with sliding scale. 06/26: Patient started on scheduled premeal Humalog insulin 4. VTE prophylaxis: Low risk not indicated at this time. Charges/Coding Visit Charges Inpatient E&M: 42643 Subs Hosp L2
[2021-06-26 11:50] LABS: Bedside Glucose 299 mg/dL (70-110)
[2021-06-26 16:03] VITALS: BP 124/87; PULSE 77; RESP 16; TEMP 36.9; O2SAT 96
[2021-06-26] MEDS: Insulin Lispro 100 UNIT/ML INSULN.PEN 10 UNIT SC (16:39)
[2021-06-26 16:50] LABS: Bedside Glucose 345 mg/dL (70-110)
--- NOTE | 2021-06-26 19:33 | PCS.PANDOC ---
PANDEMIC DOCUMENTATION INITIATED: Date: 04/05/2021 Time: 190
[2021-06-26 22:33] VITALS: BP 134/89; PULSE 91; RESP 16; TEMP 36.4; O2SAT 96
[2021-06-26 22:46] LABS: Bedside Glucose 353 mg/dL (70-110)
[2021-06-27] MEDS: Phenobarbital 32.4 MG Tablet 64.8 MG PO ×3 (00:02→07:27)
[2021-06-27 03:15] VITALS: BP 123/72; PULSE 80; RESP 16; TEMP 36.9; O2SAT 95
[2021-06-27 07:26] LABS: Bedside Glucose 275 mg/dL (70-110)
[2021-06-27] MEDS: Insulin Lispro 100 UNIT/ML INSULN.PEN SC ×2 (07:27→11:09)
[2021-06-27] MEDS: Insulin Lispro 100 UNIT/ML INSULN.PEN 10 UNIT SC ×2 (07:28→11:09)
[2021-06-27] MEDS: Multivitamins,Ther W-Minerals Tablet 1 TABLET PO (07:28)
[2021-06-27] MEDS: Folic Acid 1 MG Tablet PO (07:28)
[2021-06-27] MEDS: metFORMIN HCl 500 MG Tablet PO (07:28)
[2021-06-27] MEDS: Thiamine Hydrochloride 100 MG Tablet PO (07:28)
[2021-06-27] MEDS: Potassium Chloride Oral Tablet 20 MEQ 40 MEQ PO (07:29)
--- NOTE | 2021-06-27 09:07 | PCM.DC ---
Discharge Instructions Diet Discharge Diet: 1800 Calorie Control Diet Activity Discharge Activity: Return to Normal Activity and May Not Drive (Until cleared by PCP) Dressing / Incision Call your doctor if you observe: Fever of 101 or Higher, Coldness, Increased Pain, Numbness or Tingling, Change in Color, Inability to urinate, Inability to have a bowel movement, Shortness of breath, Dizziness, Fainting spells, Swelling in the ankles, Chest pain, Prolonged hiccupping, Increased palpitations (irregular heartbeat), Calf discomfort and Uncontrolled pain Follow Up Care Test Results: Test results from this visit will be discussed in further detail at your follow-up appointment, if applicable. Discharge Plan Admission Admit Date/Time: 06/24/21 22:29 Primary Reason for Your Visit: Acute alcohol withdrawal syndrome Attending Provider: Vincent Carpenter Primary Care Provider: Indiana Smith Instructions Additional Instructions / Restrictions: Follow-up 180 as an outpatient for prevent alcohol relapse Discharge Orders/Prescriptions Prescriptions: New thiamine HCl (vitamin B1) [Vitamin B-1] 100 mg Tablet 100 mg PO DAILYCM Qty: 30 RF: 0 folic acid 1 mg Tablet 1 mg PO DAILY@0800 Qty: 30 RF: 0 insulin lispro [Humalog KwikPen Insulin] 100 unit/mL Insulin Pen 15 unit subcut TIDAC Qty: 1 RF: 3 insulin lispro [Humalog KwikPen Insulin] 100 unit/mL Insulin Pen See Protocol unit subcut ACHS Qty: 0 RF: 0 Continued metformin 500 mg tablet 500 mg PO BID Qty: 90 RF: 0 (DME) FreeStyle Test Strip See Rx Instructions .ROUTE .MEDSUPPLY Qty: 50 RF: 11 (DME) blood-glucose meter [FreeStyle System Kit] Kit See Rx Instructions .ROUTE .MEDSUPPLY Qty: 1 RF: 0 (DME) lancets [FreeStyle Lancets] 28 gauge misc See Rx Instructions .ROUTE .MEDSUPPLY Qty: 50 RF: 11 insulin glargine 100 unit/mL solution 10 unit SC BID Qty: 10 RF: 1 hekvpwizefeh-pnsx-wfwmw acid 1 EACH tablet 1 ea PO DAILY RF: 0 (DME) pen needle, diabetic [Pen Needle] 31 gauge x 5/16 needle See Rx Instructions .ROUTE .MEDSUPPLY Qty: 1200 RF: 0 alcohol swabs [Alcohol Prep Pads] Pads, Medicated 1 pad topical TID Qty: 200 RF: 3 Changed Lantus Solostar U-100 Insulin 100 unit/mL (3 mL) insulin pen 20 unit subcut BID Qty: 3 RF: 3 Referrals / Follow Up: Indiana Smith MD [Primary Care Provider] - Within 2 Weeks (For diabetes control) Disposition Disposition (needs filled in before D/C Order can be placed): Home, Self Care
--- NOTE | 2021-06-27 09:07 | PCM.DC.SUM ---
Providers Date of Admission: 06/24/21 Primary Care Physician: Dr. Indiana Smith MD Reason For Visit: ALCOHOL DETOX Diagnosis Discharge Diagnosis (1) Alcohol withdrawal: Status: Acute Code(s): F10.239 - Alcohol dependence with withdrawal, unspecified Qualifiers: Complication of substance-induced condition: uncomplicated Qualified Code(s): F10.230 - Alcohol dependence with withdrawal, uncomplicated (2) Transaminitis: Status: Acute Code(s): R74.01 - Elevation of levels of liver transaminase levels Medications at Discharge Home Medications wtcevibpukvy-ffmg-javul acid 1 ea PO DAILY 10/06/20 blood sugar diagnostic #50 ea 06/09/21 blood-glucose meter #1 ea 06/09/21 insulin glargine 100 unit/mL subcutaneous solution 10 unit SC BID #10 ml 06/09/21 lancets 28 gauge #50 ea 06/09/21 metformin 500 mg tablet 500 mg PO BID #90 tab 06/09/21 alcohol swabs 1 pad TOPICAL TID #200 ea 06/16/21 pen needle, diabetic 31 gauge x /16 #1200 ea 06/16/21 Lantus Solostar U-100 Insulin 20 unit SUBCUT BID #3 ml 06/27/21 folic acid 1 mg PO DAILY@0800 #30 tab 06/27/21 insulin lispro [Humalog KwikPen Insulin] 15 unit SUBCUT TIDAC #1 ml 06/27/21 insulin lispro [Humalog KwikPen Insulin] See Protocol SUBCUT ACHS #0 ml 06/27/21 thiamine HCl (vitamin B1) [Vitamin B-1] 100 mg PO DAILYCM #30 tab 06/27/21 Hospital Course Summary of Care Provided Hospital Course: The patient was admitted for acute alcohol withdrawal syndrome with history of chronic alcohol use. 1. Acute alcohol withdrawal with history of chronic alcohol use, dependence and tolerance: Patient started drinking alcohol at the age of 14. Heavy drinker. On phenobarbital based other adjunctive medications. On thiamine and folic acid. Mild hypokalemia, potassium corrected. Serum mag and Phos ordered. Patient was seen by 180 almost every day, including yesterday and today and agreed for discharge with outpatient follow-up. 2. Chronic alcoholic hepatitis: ALT elevated since February 2019. ALT 118. AST 105. TB 1.4, alk phos 142. Patient right upper quadrant sonogram shows hepatomegaly with diffuse fatty infiltration but no discrete lesion. Solitary gallstone, GB distended with trace pericholecystic fluid and biliary dilatation to 8 mm. Patient does not have abdominal pain or right upper quadrant tenderness. Follow-up liver chemistry with PCP in 2 weeks. 3. Diabetes mellitus type 2, uncontrolled: A1c 13.6 in June 09. Lantus dose was increased to 20 unit subcutaneous twice daily and a prescription for Humalog insulin 15 units 3 times daily given. Also advised to continue Accu-Cheks before meals and at bedtime and cover with Humalog sliding scale. Follow with the PCP for optimal control of glucose. Continue Metformin 4. VTE prophylaxis: Low risk not indicated at this time. Physical Exam Narrative The patient wants to go home. Patient is being followed by 180 and was seen today and yesterday. Patient agrees for outpatient follow-up with [facility]. Glucose is elevated and dose of Humalog and Lantus insulin dose increased General: Awake, oriented x3, Cooperative HEENT: Atraumatic, PERRLA, EOMI, Normocephalic Oral: No Gingival or Mucosal Lesions/ Ulcerations Neck: Supple, No JVD, Negative Carotid Bruits Lungs: Air entry diminished in bilateral lung bases. No crepitation/rhonchi Cardiovascular: Regular rate, Regular Rhythm, Normal S1, Normal S2, No murmurs Abdomen: Bowel Sounds Present, Soft, Non Tender, Non-Distended : No renal angle tenderness. No suprapubic tenderness. Extremities: No edema, Capillary Refill Less than 3 Seconds Skin: No rashes, No breakdown Musculoskeletal: Tremors. No Tenderness to Palpation of Joints or Extremities Neurological: Cranial nerves II-XII grossly intact, DTR 2+/4 and Symmetrical, Neuro grossly intact Psych/Mental Status: Normal Affect, Appropriate. Weight / BMI Weight Weight: 238 lb 15.697 oz Body Mass Index (BMI) 34.2 ABG / Lab / Microbiology Data Result Diagrams: 06/24/21 20:35 06/25/21 06:10 Laboratory: Laboratory Results - last 24 hr 06/26/21 11:38: POC Glucose 299 H 06/26/21 16:30: POC Glucose 345 H 06/26/21 22:37: POC Glucose 353 H 06/27/21 07:16: POC Glucose 275 H Microbiology: Microbiology 06/24/21 20:30 Nasal Secretion SARS-CoV-2 Antigen (Rapid) - Final Meaningful Use Info Meaningful Use Diagnoses (Choose all that apply): None applicable Discharge Plan Admission Admit Date/Time: 06/24/21 22:29 Primary Reason for Your Visit: Acute alcohol withdrawal syndrome Attending Provider: Vincent Carpenter Primary Care Provider: Indiana Smith Instructions Additional Instructions / Restrictions: Follow-up 180 as an outpatient for prevent alcohol relapse Discharge Orders/Prescriptions Prescriptions: New thiamine HCl (vitamin B1) [Vitamin B-1] 100 mg Tablet 100 mg PO DAILYCM Qty: 30 RF: 0 folic acid 1 mg Tablet 1 mg PO DAILY@0800 Qty: 30 RF: 0 insulin lispro [Humalog KwikPen Insulin] 100 unit/mL Insulin Pen 15 unit subcut TIDAC Qty: 1 RF: 3 insulin lispro [Humalog KwikPen Insulin] 100 unit/mL Insulin Pen See Protocol unit subcut ACHS Qty: 0 RF: 0 Continued metformin 500 mg tablet 500 mg PO BID Qty: 90 RF: 0 (DME) FreeStyle Test Strip See Rx Instructions .ROUTE .MEDSUPPLY Qty: 50 RF: 11 (DME) blood-glucose meter [FreeStyle System Kit] Kit See Rx Instructions .ROUTE .MEDSUPPLY Qty: 1 RF: 0 (DME) lancets [FreeStyle Lancets] 28 gauge misc See Rx Instructions .ROUTE .MEDSUPPLY Qty: 50 RF: 11 insulin glargine 100 unit/mL solution 10 unit SC BID Qty: 10 RF: 1 olcvadhvttrp-bjzu-awuad acid 1 EACH tablet 1 ea PO DAILY RF: 0 (DME) pen needle, diabetic [Pen Needle] 31 gauge x 5/16 needle See Rx Instructions .ROUTE .MEDSUPPLY Qty: 1200 RF: 0 alcohol swabs [Alcohol Prep Pads] Pads, Medicated 1 pad topical TID Qty: 200 RF: 3 Changed Lantus Solostar U-100 Insulin 100 unit/mL (3 mL) insulin pen 20 unit subcut BID Qty: 3 RF: 3 Referrals / Follow Up: Indiana Smith MD [Primary Care Provider] - Within 2 Weeks (For diabetes control) Disposition Disposition (needs filled in before D/C Order can be placed): Home, Self Care Charges/Coding Visit Charges Inpatient E&M: 02199 Disch Hosp
[2021-06-27 10:11] VITALS: BP 132/87; PULSE 76; RESP 16; TEMP 36.4; O2SAT 99
[2021-06-27 11:15] LABS: Bedside Glucose 261 mg/dL (70-110)
--- NOTE | 2021-06-27 11:26 | ADDICTION ---
TW met with pt to fill out the ASAM, AUDIT, DUDIT, MSE. Pt stated [facility] is going [facility] in the morning to schedule an appointment to get back on Vivitrol and establish with a therapist. Pt stated he has several supports at work who are in recovery and has AA meetings he wants to attend as well as a person he already wants to ask to be his sponsor. PT was informed of the Vivitrol information group the following day 06/28/21 at 10AM as his appointment he needs to attend. Pt was cooperative, alert and oriented x4, stated no needs for transportation, and no current SI/HI.
== END 2021-06-27 12:47 | disposition home or self-care (01) | DRG 775 ==
LOC: ED 20:03 → MS3 22:08 → MS2 23:03
PROVIDERS: Emergency Provider Emergency Medicine; PCP Internal Medicine; Visit Provider Internal Medicine
DX: F10.230 Alcohol dependence with withdrawal, uncomplicated (principal); E11.9 Type 2 diabetes mellitus without complications; Y90.7 Blood alcohol level of 200-239 mg/100 ml; Z79.4 Long term (current) use of insulin; Z81.1 Family history of alcohol abuse and dependence; K70.10 Alcoholic hepatitis without ascites; Z28.3 Underimmunization status; Z28.21 Immunization not carried out because of patient refusal; E87.6 Hypokalemia
CPT/HCPCS: 36415; 76705; 80048; 80053; 80076; 80307; 82077; 82962; 83690; 83735; 84100; 85025; 85610; 87426; 99284; 99406; A4216

== ENCOUNTER → 2021-07-07 08:04 | Outpatient (CLI) | payer MEDICAID, SELFPAY ==
[2021-07-07 12:47] LABS: ALB/GLOB Ratio 0.8 RATIO (0.9-2.4); AST(SGOT) 62 U/L (15-37); Alanine Aminotransfer ALT/SGPT 78 U/L (16-61); Albumin, Serum 3.4 g/dL (3.2-5.0); Alkaline Phosphatase 103 U/L (45-117); Anion Gap 7 (5-15); BUN 9 mg/dL (7-18); BUN/Creat Ratio 13.9 RATIO (10-20); Calcium,Total 8.6 mg/dL (8.5-10.1); Chloride 104 mmol/L (98-107); Creatinine, Serum 0.65 mg/dL (0.70-1.30); EST Glomerular Filtration Rate 141 mL/min (>60); Est Glom Filt Rate - Afr Amer 170 mL/min (>60); Globulin 4.5 g/dL (2.2-4.2); Glucose 71 mg/dL (74-106); Potassium 3.1 mmol/L (3.5-5.1); Protein, Total 7.9 g/dL (6.4-8.2); Sodium Level 138 mmol/L (136-145)
== END ==
PROVIDERS: PCP Internal Medicine; Referring Provider Nurse Practitioner Family; Visit Provider Nurse Practitioner Family
DX: R79.89 Other specified abnormal findings of blood chemistry (principal)
CPT/HCPCS: 36415; 80053

== ENCOUNTER 2021-08-24 13:27 | Outpatient (CLI) | payer MEDICAID, SELFPAY | END 2021-08-24 23:59 | disposition short-term general hospital (02) | LOC: LABSPEC 13:28 | PROVIDERS: PCP Internal Medicine; Referring Provider Physician Assistant Surgical; Visit Provider Physician Assistant Surgical | DX: U07.1 COVID-19 (principal) | CPT/HCPCS: 87635; U0003; U0005 ==

== ENCOUNTER → 2022-01-12 | Outpatient (CLI) | payer MEDICAID, SELFPAY ==
[2022-01-12 12:26] LABS: Absolute Lymphocyte Count 2.16 X10^3/uL (0.83-4.51); Absolute Neutrophil Count 5.6 X10^3/uL (2.0-7.7); Basophil# 0.06 X10^3/uL; Basophil% 0.7 % (0-1); Eosinophil# 0.26 X10^3/uL; Eosinophils% 2.9 % (0-5); Hematocrit 46.2 % (40-54); Hemoglobin 16.3 g/dL (13.0-16.5); Lymphocyte # 2.16 X10^3/ul (0.83-4.51); Lymphocyte % 24.4 % (19-41); Mean Corp Hgb Conc 35.3 g/dL (32-36); Mean Corpuscular Volume 87.8 fL (80-94); Mean Platelet Vol. 12.2 fl (6.2-12.0); Monocyte# 0.75 X10^3/uL; Monocyte% 8.5 % (0-10); NRBC Flagged by Analyzer 0 % (0-5); Neutrophil % 63.2 % (47-70); Platelet Count 120 K/mm3 (150-450); RBC Distribution Width CV 14.6 % (11.6-14.6); RBC Distribution Width SD 45.1 fl (35.1-43.9); Red Blood Count 5.26 M/mm3 (4.6-6.2); White Blood Count 8.9 K/mm3 (4.4-11.0)
[2022-01-12 12:44] LABS: Vitamin D,25 Hydroxy 27.3 ng/mL
[2022-01-12 12:49] LABS: Hemoglobin A1c 8.2 % (3.8-5.6)
[2022-01-12 13:16] LABS: AST(SGOT) 48 U/L (15-37); Alanine Aminotransfer ALT/SGPT 64 U/L (16-61); Albumin, Serum 4.3 g/dL (3.2-5.0); Alkaline Phosphatase 141 U/L (45-117); Anion Gap 7 (5-15); BUN 17 mg/dL (7-18); BUN/Creat Ratio 12.7 RATIO (10-20); Calcium,Total 8.8 mg/dL (8.5-10.1); Chloride 101 mmol/L (98-107); Cholesterol 126 mg/dL (200); Creatinine, Serum 1.34 mg/dL (0.70-1.30); EST Glomerular Filtration Rate 61 mL/min (>60); Est Glom Filt Rate - Afr Amer 74 mL/min (>60); Globulin 4.5 g/dL (2.2-4.2); Glucose 240 mg/dL (74-106); High Density Lipoprotein 29 mg/dL; Potassium 3.8 mmol/L (3.5-5.1); Protein, Total 8.8 g/dL (6.4-8.2); Sodium Level 136 mmol/L (136-145); Thyroid Stim Hormone (TSH) 1.38 uIU/mL (0.358-3.74); Triglycerides 243 mg/dL; Very Low Density Lipoprotein 49 mg/dL (5-40)
[2022-01-15 19:07] LABS: Testosterone, Free 7.59 ng/dL (5.00-21.00)
[2022-01-16 09:27] LABS: Testosterone, % Free 2.22 % (1.50-4.20); Testosterone, Total 342 ng/dL (264-916)
== END | disposition home or self-care (01) ==
PROVIDERS: PCP Internal Medicine; Referring Provider Internal Medicine; Visit Provider Internal Medicine
DX: E11.9 Type 2 diabetes mellitus without complications (principal); E66.9 Obesity, unspecified; G47.30 Sleep apnea, unspecified
CPT/HCPCS: 36415; 80053; 80061; 82306; 83036; 84402; 84403; 84443; 85025

== ENCOUNTER 2022-02-15 19:22 | Inpatient (IN) | payer MEDICAID, SELFPAY ==
[2022-02-15 19:23] VITALS: BP 140/97; PULSE 101; RESP 14; TEMP 36.6; O2SAT 94; BMI 37.3
--- NOTE | 2022-02-15 19:45 | EDS_ITS ---
HPI History of Present Illness Chief Complaint: ETOH Intox Informant: patient and spouse/S.O. Narrative Narrative: Most history is through the spouse as the patient is very drunk. He is happy and he jokes at all questions. He also denies all symptoms. He does admit that he wants detox though. Evidently this patient has a history of have his be drinking. He reports having seizures with with withdrawals back in the day. His is not familiar with this. He has gone through detox before. He has been clean for about 6 or 7 months but started drinking again in December. Is not sure why. He drinks very heavily. He has not stopped drinking in this time. His not sure how much he drinks because he hides it. He cannot tell me. He also has not been taking his diabetes meds because he was told do not mix these with alcohol. He denies nausea vomiting fevers chills or pain. He denies everything. He feels great. [facility] Medical History Alcohol abuse Carpal tunnel syndrome Diabetes Elevated LFTs Nausea & vomiting Seasonal allergies Sleep apnea Transaminitis Type 2 diabetes mellitus Home Medications multivitamin-ferrous fumarate-folic acid 18 mg-400 mcg tablet 1 ea PO DAILY 10/06/20 [History Last Taken 10/12/20] blood sugar diagnostic (FreeStyle Test) #50 ea 06/09/21 [Rx Last Taken Unknown] alcohol swabs (Alcohol Prep Pads) 1 pad topical TID #200 ea 06/16/21 [Rx Last Taken Unknown] pen needle, diabetic 31 gauge x 5/16 (Pen Needle) #1,200 ea 06/16/21 [Rx Last Taken Unknown] flash glucose scanning reader (FreeStyle Colyb 14 Day [place]) #1 ea 06/30/21 [Rx Last Taken Unknown] flash glucose sensor (FreeStyle [place]by 14 Day Sensor) #2 ea 06/30/21 [Rx Last Taken Unknown] lancets 28 gauge (FreeStyle Lancets) #50 ea 06/30/21 [Rx Last Taken Unknown] pen needle, diabetic 32 gauge x 5/32 (1st Tier Unifine Pentips) #100 ea 06/30/21 [Rx Last Taken Unknown] blood-glucose meter (FreeStyle System Kit) #1 ea 08/24/21 [Rx Last Taken Unknown] insulin glargine 100 unit/mL (3 mL) subcutaneous pen (Lantus Solostar U-100 Insulin) 40 unit subcut DAILY 09/01/21 [History Last Taken Unknown] metformin 500 mg tablet 500 mg PO DAILY 01/12/22 [History Last Taken Unknown] dulaglutide 0.75 mg/0.5 mL subcutaneous pen injector (Trulicity) 0.75 mg (0.5 mL) subcut QWEEK #2 mL 01/13/22 [Rx Last Taken Unknown] Allergy/AdvReac Type Severity Reaction Status Date / Time No Known Allergies Allergy Verified 02/15/22 19:23 Family History Daughter Thyroid disorder Other Alcoholism in family Surgical History history of tibia/fibula surgery History of tonsillectomy Social History household members: none housing: house current occupational status: employed current occupation: Delivery Smoking Status: Never smoker alcohol intake: former year quit: 2021 what type of physical activity do you participate in: running and weight training frequency: 3-4 times per week ROS ROS ED ROS Narrative very limited with alcohol Constitutional Constitutional ED: Denies chills or fever(s) ENT ENT ED: Denies sore throat Cardiovascular Cardiovascular: Denies chest pain Respiratory/Chest Respiratory/Chest: Denies cough or dyspnea Gastrointestinal Gastrointestinal: Denies abdominal pain, diarrhea, nausea or vomiting Musculoskeletal Musculoskeletal: Denies arthralgias or myalgias Integumentary Denies rash Neurologic Neurologic: Denies headache(s), paresthesias or weakness Endocrine Endocrinology: Denies polyuria Hematologic/Lymphatic Hematologic/Lymphatic: Denies easy bleeding or easy bruising Allergic/Immunologic Allergic/Immunologic ED: Denies urticaria EXAM Physical Exam Const Vital Signs: 02/15/22 19:23 Temperature 98 F Temperature Source Temporal Pulse Rate 101 H Respiratory Rate 14 Blood Pressure 140/97 H Blood Pressure Mean 111 Pulse Ox 94 Oxygen Delivery Method Room Air Positive well nourished and well developed General Appearance ED: well developed HEENT Reports moist mucous membranes Eyes Eyes Narrative: Mild bilateral injection Neck supple Resp normal respiratory effort and clear to auscultation bilaterally Cardio regular rate and regular rhythm GI soft to palpation, non-tender and non-distended Back/Spine no CVA tenderness Extremity General Extremety ED: Negative for tenderness Neuro Neuro Narrative: Patient is awake and alert. He is oriented. But he is clinically very intoxicated. Psych Psych Narrative: See above. Skin General Skin Exam: Negative for jaundice MDM MDM MDM Narrative Medical decision making narrative: CBC shows no marked abnormalities. Electrolytes show high glucose at 428 which is expected because he is not taking his meds. But he runs high all the time anyway. We will get this down with fluids and some insulin. We have given this we are waiting for repeat test. There is no sign of DKA from his labs. Ethanol level is quite high at 268. Tox is positive for cannabis only. Patient does say he wants to come in for detox. He states his kids were really proud of him when he was not drinking and he would like to go back to that. He did have 6 or so months of sobriety per him and his . I discussed case with hospitalist. Lab Data Attestation: I reviewed the patient's lab results. Labs: Laboratory Results - last 24 hr 02/15/22 02/15/22 02/15/22 19:55 19:55 19:55 WBC 9.2 RBC 4.81 Hgb 15.5 Hct 42.5 MCV 88.4 MCH 32.2 H MCHC 36.5 H RDW Std Deviation 47.8 H RDW Coeff of Patito 14.8 H Plt Count 127 L MPV 11.0 Immature Gran % (Auto) 0.200 Neut % (Auto) 49.9 Lymph % (Auto) 40.4 Travis % (Auto) 6.3 Eos % (Auto) 2.2 Baso % (Auto) 1.0 Absolute Neuts (auto) 4.6 Absolute Lymphs (auto) 3.71 Nucleated RBC % 0 Sodium 135 L Potassium 3.9 Chloride 100 Carbon Dioxide 21.0 Anion Gap 14 BUN 15 Creatinine 1.15 Estim Creat Clear Calc 81.99 Est GFR (MDRD) Af Amer 88 Est GFR (MDRD) Non-Af 72 BUN/Creatinine Ratio 13.0 Glucose 428 H Calcium 8.0 L Total Bilirubin 1.00 AST 83 H ALT 91 H Alkaline Phosphatase 120 H Total Protein 7.5 Albumin 3.7 Globulin 3.8 Albumin/Globulin Ratio 1.0 Urine Opiates Screen Urine Methadone Screen Ur Barbiturates Screen Ur Phencyclidine Scrn Ur Amphetamines Screen MDMA (Ecstasy) Screen U Benzodiazepines Scrn Urine Cocaine Screen U Cannabinoids Screen Ur Drug Screen Comment Ethyl Alcohol 268.0 POC Glucose 02/15/22 02/15/22 20:07 20:10 WBC RBC Hgb Hct MCV MCH MCHC RDW Std Deviation RDW Coeff of Patito Plt Count MPV Immature Gran % (Auto) Neut % (Auto) Lymph % (Auto) Travis % (Auto) Eos % (Auto) Baso % (Auto) Absolute Neuts (auto) Absolute Lymphs (auto) Nucleated RBC % Sodium Potassium Chloride Carbon Dioxide Anion Gap BUN Creatinine Estim Creat Clear Calc Est GFR (MDRD) Af Amer Est GFR (MDRD) Non-Af BUN/Creatinine Ratio Glucose Calcium Total Bilirubin AST ALT Alkaline Phosphatase Total Protein Albumin Globulin Albumin/Globulin Ratio Urine Opiates Screen NEGATIVE Urine Methadone Screen NEGATIVE Ur Barbiturates Screen NEGATIVE Ur Phencyclidine Scrn NEGATIVE Ur Amphetamines Screen NEGATIVE MDMA (Ecstasy) Screen NEGATIVE U Benzodiazepines Scrn NEGATIVE Urine Cocaine Screen NEGATIVE U Cannabinoids Screen POSITIVE H Ur Drug Screen Comment Ethyl Alcohol POC Glucose > 500 H* Discharge Plan Triage Chief Complaint: ETOH Intox ED Provider: Bill Rausch Dx/Rx/DC Orders Clinical Impression: Alcoholism, Hyperglycemia, Admitted to alcohol detoxification center Prescriptions: No Action (DME) FreeStyle Test Strip See Rx Instructions .ROUTE .MEDSUPPLY Qty: 50 11RF Rx Instructions: check blood glucose daily (DME) lancets [FreeStyle Lancets] 28 gauge misc See Rx Instructions .ROUTE .MEDSUPPLY Qty: 50 11RF Rx Instructions: Check blood glucose daily for type 2 DM (DME) FreeStyle Colby 14 Day [place] Misc See Rx Instructions .ROUTE .MEDSUPPLY Qty: 1 0RF Rx Instructions: check blood glucose 4 times a day (DME) FreeStyle [place] 14 Day Sensor Kit See Rx Instructions .ROUTE .MEDSUPPLY Qty: 2 3RF Rx Instructions: As directed (DME) pen needle, diabetic [1st Tier Unifine Pentips] 32 gauge x 5/32 needle See Rx Instructions .ROUTE .MEDSUPPLY Qty: 100 3RF Rx Instructions: 4 times a day Lantus Solostar U-100 Insulin 100 unit/mL (3 mL) insulin pen 40 unit subcut DAILY metformin 500 mg tablet 500 mg PO DAILY fiepbgakpoub-tpkn-vejqk acid 1 EACH tablet 1 ea PO DAILY (DME) pen needle, diabetic [Pen Needle] 31 gauge x 5/16 needle See Rx Instructions .ROUTE .MEDSUPPLY Qty: 1200 0RF Rx Instructions: use twice daily as directed for type 2 DM alcohol swabs [Alcohol Prep Pads] Pads, Medicated 1 pad topical TID Qty: 200 3RF (DME) blood-glucose meter [FreeStyle System Kit] Kit See Rx Instructions .ROUTE .MEDSUPPLY Qty: 1 0RF Rx Instructions: check blood glucose daily for type 2 DM Trulicity 0.75 mg/0.5 mL pen injector 0.75 mg subcut QWEEK Qty: 2 1RF Primary Care Provider: Indiana Smith Referrals: Indiana Smith MD [Primary Care Provider] - Disposition Disposition: Acute Care Hospital [facility]
--- NOTE | 2022-02-15 19:57 | CM.ED ---
Addendum entered by Jacquelin Dalton 02/15/22 20:33: Per ED physician note, pt did state that he wants Detox. INES placed a call to [facility] 24 hour treatment navigator and left message updating them on pt's request for detox and likely admission. Original Note: Social Work Note SW reviewed chart. Pt is at [facility] for Alcohol Detox. SW in to speak with pt. Pt's significant other Ekta present in room. Pt appeared to be sleeping over the side of the bed. SW said pt's name, pt did not respond. Ekta said pt's name and pt woke up. INES introduced self at [facility]. INES asked pt if this worker can speak to him in front of his guest. Pt states depends, if you want to have a three some. Ekta told pt to stop saying that. INES asked pt if he was at [facility] for detox, pt not up front about his answer. Pt does state that he has been at [facility] detocx before and aware of the rules. INES asked pt when his last drink of ETOH was, pt did not answer. Ekta states that pt was drinking by the time she got off work at 4:30pm. Ekta states that pt was sober for 6-7 months. Ekta states that pt has been hiding ETOH use from her for the last couple of months, stating pt will drink before and after work. Ekta apologized for pt's behaviors. Ekta asked if pt will be admitted for detox. INES informed Ekta that if pt remains agreeable, pt should be admitted for Detox since pt is at [facility] for Alcohol Detox. Ekta states understanding. Jacquelin Dalton RETAIL LEADER, [employer]PARTMENT SUPERVISOR
[2022-02-15] MEDS: 0.9% Normal Saline 1,000 ML 999 ML IV (20:15)
[2022-02-15 20:16] LABS: Bedside Glucose > 500 mg/dL (74-106)
[2022-02-15 20:29] LABS: Absolute Lymphocyte Count 3.71 X10^3/uL (0.83-4.51); Absolute Neutrophil Count 4.6 X10^3/uL (2.0-7.7); Basophil# 0.09 X10^3/uL; Eosinophils% 2.2 % (0-5); Hematocrit 42.5 % (40-54); Hemoglobin 15.5 g/dL (13.0-16.5); Lymphocyte # 3.71 X10^3/ul (0.83-4.51); Lymphocyte % 40.4 % (19-41); Mean Corp Hgb Conc 36.5 g/dL (32-36); Mean Corpuscular Hgb 32.2 pg (27.0-32.0); Mean Corpuscular Volume 88.4 fL (80-94); Monocyte# 0.58 X10^3/uL; Monocyte% 6.3 % (0-10); NRBC Flagged by Analyzer 0 % (0-5); Neutrophil # 4.59 X10^3/uL (2.7-7.7); Neutrophil % 49.9 % (47-70); Platelet Count 127 K/mm3 (150-450); RBC Distribution Width CV 14.8 % (11.6-14.6); RBC Distribution Width SD 47.8 fl (35.1-43.9); Red Blood Count 4.81 M/mm3 (4.6-6.2); White Blood Count 9.2 K/mm3 (4.4-11.0)
[2022-02-15 20:40] LABS: AST(SGOT) 83 U/L (15-37); Alanine Aminotransfer ALT/SGPT 91 U/L (16-61); Albumin, Serum 3.7 g/dL (3.2-5.0); Alkaline Phosphatase 120 U/L (45-117); Anion Gap 14 (5-15); BUN 15 mg/dL (7-18); Chloride 100 mmol/L (98-107); Creatinine, Serum 1.15 mg/dL (0.70-1.30); EST Glomerular Filtration Rate 72 mL/min (>60); Est Glom Filt Rate - Afr Amer 88 mL/min (>60); Estimated Creatinine Clearance 81.99 ml/min; Globulin 3.8 g/dL (2.2-4.2); Glucose 428 mg/dL (74-106); Potassium 3.9 mmol/L (3.5-5.1); Protein, Total 7.5 g/dL (6.4-8.2); Sodium Level 135 mmol/L (136-145)
--- NOTE | 2022-02-15 21:29 | HP.PCM.HOS_ITS ---
HPI - General General Date of Admission: 02/15/22 Date of Service: 02/15/22 Chief Complaint: Alcohol abuse, presents for detox program. HPI Narrative The patient is a 46 y/o M w/ PMHx: Obesity, RONIT, Diabetes mellitus type II, Allergic Rhinitis, EtOH abuse (sober x 6 months, started drinking daily again 12/2021 tall boys, ~ 6-8 daily) who presents to the [facility] ED on with history of ongoing alcohol intake and per discussion with family not appropriately taking his diabetic medications with interest and reattaining sobriety as he notes that he is disappointed his children and he did feel good when he was sober allowing his to bring him in for reassessment for the detoxification program noting that he had 2 tall boys prior to transitioning to ED for evaluation. He is currently denying any withdrawal symptoms including nausea, tremors, agitation or any tactile disturbances. Work-up in the ED included T 98, HR 101, BP 140/97, RR 14, 94% on RA, CBC w/ WBC 9.2, Hgb 15.5, Plts 127 without any shift noted, CMP with sodium 135, glucose 428, anion gap 14, AST/ALT 83/21, alk phos 120 otherwise hepatic profile unremarkable, UDS pending, ethyl alcohol 268. In the ED patient administered normal saline 1 L bolus as well as insulin lispro 12 units subcu x1. [facility] Medical History (Updated 02/15/22 @ 21:[address] Adriana Garcia MD) Alcohol abuse Carpal tunnel syndrome Diabetes Obesity Seasonal allergies Sleep apnea Transaminitis Type 2 diabetes mellitus Home Medications multivitamin-ferrous fumarate-folic acid 18 mg-400 mcg tablet 1 ea PO DAILY 10/06/20 [History Last Taken 10/12/20] blood sugar diagnostic (FreeStyle Test) #50 ea 06/09/21 [Rx Last Taken Unknown] alcohol swabs (Alcohol Prep Pads) 1 pad topical TID #200 ea 06/16/21 [Rx Last Taken Unknown] pen needle, diabetic 31 gauge x /16 (Pen Needle) #1,200 ea 06/16/21 [Rx Last Taken Unknown] flash glucose scanning reader (FreeStyle Colby 14 Day [place]) #1 ea 06/30/21 [Rx Last Taken Unknown] flash glucose sensor (FreeStyle [place] 14 Day Sensor) #2 ea 06/30/21 [Rx Last Taken Unknown] lancets 28 gauge (FreeStyle Lancets) #50 ea 06/30/21 [Rx Last Taken Unknown] pen needle, diabetic 32 gauge x 5/32 (1st Tier Unifine Pentips) #100 ea 06/30/21 [Rx Last Taken Unknown] blood-glucose meter (FreeStyle System Kit) #1 ea 08/24/21 [Rx Last Taken Unknown] insulin glargine 100 unit/mL (3 mL) subcutaneous pen (Lantus Solostar U-100 Insulin) 40 unit subcut DAILY 09/01/21 [History Last Taken Unknown] metformin 500 mg tablet 500 mg PO DAILY 01/12/22 [History Last Taken Unknown] dulaglutide 0.75 mg/0.5 mL subcutaneous pen injector (Trulicity) 0.75 mg (0.5 mL) subcut QWEEK #2 mL 01/13/22 [Rx Last Taken Unknown] Allergy/AdvReac Type Severity Reaction Status Date / Time No Known Allergies Allergy Verified 02/15/22 19:23 Family History (Updated 02/15/22 @ 21:[address] Adriana Garcia MD) Daughter Thyroid disorder Father Cancer Unclear type. Mother Frederica-Judy syndrome Other Alcoholism in family Surgical History history of tibia/fibula surgery History of tonsillectomy Social History (Updated 02/15/22 @ 21:[address] Adriana Garcia MD) household members: spouse housing: house current occupational status: employed current occupation: Delivery Smoking Status: Never smoker alcohol intake: current details: Currently started EtOH intake again 12/2021, 6-8 tall boys daily. substance use type: does not use what type of physical activity do you participate in: running and weight training frequency: 3-4 times per week ROS ROS Narrative Admission Review of Systems: CONSTITUTIONAL: No weight loss, fever, chills, + weakness or fatigue. HEENT: Eyes: No visual loss, blurred vision, double vision or yellow sclerae. Ears, Nose, Throat: No hearing loss, sneezing, congestion, runny nose or sore throat. SKIN: No rash or itching, lesions, wounds. CARDIOVASCULAR: No chest pain, chest pressure or chest discomfort, palpitations, edema, orthopnea, syncopal events. RESPIRATORY: No shortness of breath, cough or sputum, wheezing, hemoptysis. GASTROINTESTINAL: No anorexia, nausea, vomiting or diarrhea, abdominal pain, melena, BRBPR. GENITOURINARY: No dysuria, frequency, urgency or retention. NEUROLOGICAL: No headache, dizziness, syncope, paralysis, ataxia, numbness or tingling in the extremities, focal weakness, change in bowel or bladder control, seizure. MUSCULOSKELETAL: No muscle, back pain, joint pain or stiffness. HEMATOLOGIC: No anemia, bleeding or bruising. LYMPHATICS: No enlarged nodes. No history of splenectomy. PSYCHIATRIC: No history of depression or anxiety. ENDOCRINOLOGIC: No reports of sweating, cold or heat intolerance. + polyuria or polydipsia. ALLERGIES: No history of asthma, hives, eczema or rhinitis. Vital Signs Vital Signs Vital Signs: 02/15/22 19:23 Temperature 98 F Temperature Source Temporal Pulse Rate 101 H Respiratory Rate 14 Blood Pressure 140/97 H Blood Pressure Mean 111 Pulse Ox 94 Oxygen Delivery Method Room Air Weight Weight: 260 lb Body Mass Index (BMI) 37.3 Physical Exam Narrative Physical Examination: General: Awake, alert, oriented x 3 and cooperative, fatigued, sleeping initially, laying in the bed, fatigued, denies any complaints Skin: Normal color, normal turgor, no icterus, no cyanosis. HEENT: AT/NC, EOMI, PERRLA, MMM, no carotid bruits or JVD noted. Lungs: Mildly diminished, greater bases, poor effort no rales, ronchi or wheezing. Heart: Currently regular rate and rhythm; no gallop, rub audible. Abdomen: Soft, right upper quadrant tenderness to palpation, ND, distant normal BS, mild HM. Extremities: No cyanosis, clubbing, or edema. Neurological: Patient awake, alert, oriented as noted, cognitive function intact but fatigued; pupils equally reactive to light and accommodation, cranial nerves II-XII grossly normal, moving all 4 extremities, no focal deficits, strength mildly globally decreased. Psychiatric: Affect appears fatigued otherwise normal, no acute evidence of depressive or anxiety feelings. Results Lab / Micro Data Result Diagrams: 02/15/22 19:55 02/15/22 19:55 Labs: Laboratory Results - last 24 hr 02/15/22 19:55: WBC 9.2, RBC 4.81, Hgb 15.5, Hct 42.5, MCV 88.4, MCH 32.2 H, MCHC 36.5 H, RDW Std Deviation 47.8 H, RDW Coeff of Patito 14.8 H, Plt Count 127 L, MPV 11.0, Immature Gran % (Auto) 0.200, Neut % (Auto) 49.9, Lymph % (Auto) 40.4, [place] % (Auto) 6.3, Eos % (Auto) 2.2, Baso % (Auto) 1.0, Absolute Neuts (auto) 4.6, Absolute Lymphs (auto) 3.71, Nucleated RBC % 0 02/15/22 19:55: Sodium 135 L, Potassium 3.9, Chloride 100, Carbon Dioxide 21.0, Anion Gap 14, BUN 15, Creatinine 1.15, Estim Creat Clear Calc 81.99, Est GFR (MDRD) Af Amer 88, Est GFR (MDRD) Non-Af 72, BUN/Creatinine Ratio 13.0, Glucose 428 H, Calcium 8.0 L, Total Bilirubin 1.00, AST 83 H, ALT 91 H, Alkaline Phosphatase 120 H, Total Protein 7.5, Albumin 3.7, Globulin 3.8, Albumin/Globulin Ratio 1.0 02/15/22 19:55: Ethyl Alcohol 268.0 02/15/22 20:07: POC Glucose > 500 H* 02/15/22 20:10: Ur Drug Screen Comment Assessment & Plan Assessment/Plan (1) Alcoholism: PLAN: Plan The patient is a 46 y/o M w/ PMHx: Obesity, RONIT, Diabetes mellitus type II, Allergic Rhinitis, EtOH abuse (sober x 6 months, started drinking daily again 12/2021 tall boys, ~ 6-8 daily) who presents to the [facility] ED on with history of ongoing alcohol intake and per discussion with family not appropriately taking his diabetic medications with interest and reattaining sobriety as he notes that he is disappointed his children and he did feel good when he was sober allowing his to bring him in for reassessment for the detoxification program. #1. EtOH Abuse with requested Detoxification with pending Withdrawal: Will admit to [facility], routine labs obtained in the ED upon presentation. Given interest in sobriety, will initiate and continue on protocol with taper course of Phenobarbital, scheduled gabapentin for seizure prophylaxis, as needed Catapres, Bentyl, Vistaril, IV fluids, IV antiemetics, Tylenol as needed for pain. Will consult Case management for assistance for transition to next level of rehabilit ation care. Mag, phos pending. Maintain on CIWA protocol concurrently. #2. Elevated BP without HTN Diagnosis: Not on any regimen, elevated BP upon presentation but certainly could be related with acute presentation, monitor and if appropriate add regimen, in interim PRN IV hydralazine. #3. Suspected Acute Alcoholic Hepatitis on Chronic LFT elevation: Secondary to EtOH abuse, admission CMP w/ AST/ALT 83/91, similar to prior previous however discomfort with palpation of the liver and denies any prior complaints of pain, nor any recent biliary colic type symptoms. Will obtain US to be cautious and repeat CMP in AM. #4. Diabetes mellitus type II, poorly controlled: Hold oral home regimen, continue home insulin regimen, from discussions not recently taking his medications, HgBA1c requested, nutrition consulted, maintain on ADA diet, accu checks w/ ISS. #5. Chronic thrombocytopenia: Admission platelets 127, similar to baseline noted to be primarily 120-130s. #6. Obesity: Weight loss and lifestyle changes encouraged. #7. RONIT: Does not use CPAP or BIPAP. #8. DVT prophylaxis: Encourage ambulation. Charges/Coding Visit Charges Inpatient E&M: 19300 Init Hosp L2
[2022-02-15 21:34] LABS: Amphetamine Urine VISTA NEGATIVE (<1000 ng/mL); Barbiturate Urine VISTA NEGATIVE (< 200 ng/mL); Benzodiazepine Urine VISTA NEGATIVE (< 200 ng/mL); Cocaine Urine VISTA NEGATIVE (< 300 ng/mL); Ecstacy Urine VISTA NEGATIVE (< 500 ng/mL); Methadone Urine VISTA NEGATIVE (< 300 ng/mL); PCP Urine VISTA NEGATIVE (< 25 ng/mL); THC Urine VISTA POSITIVE (< 50 ng/mL); Vista UDS pH Range 5
--- NOTE | 2022-02-15 21:58 | US_ITS ---
EXAM: US Abdomen RUQ (limited) HISTORY: RUQ pain, elevated LFTs TECHNIQUE: US Abdomen RUQ (limited) COMPARISON: Ultrasound abdomen 06/25/2021. LIMITATIONS: None. LIVER: The liver is enlarged with the right hepatic lobe measuring 20.5 cm and diffusely increased echogenicity. Focal fatty sparing adjacent to gallbladder. No surface nodularity. No discrete mass. No intrahepatic biliary ductal dilatation. Normal hepatopedal portal venous flow. GALLBLADDER: Gallbladder is normally distended. No shadowing gallstones or sludge. No gallbladder wall thickening. No pericholecystic fluid. Negative sonographic Guthrie sign. EXTRAHEPATIC BILE DUCTS: Normal. 5 mm PANCREAS: Visualized portions within normal limits. AORTA/IVC: Visualized portions within normal limits. RIGHT KIDNEY: Normal. ASCITES: None. PLEURAL EFFUSIONS: None. OTHER: None. US/Liver IMPRESSION: 1. No shadowing gallstones. 2. CBD 5 mm. 3. Hepatomegaly and hepatic steatosis. Electronically Signed: Franklyn Winkler MD at 22:47 EDT ,
[2022-02-15 22:03] LABS: Magnesium 1.9 mg/dL (1.6-2.6); Phosphorus 3.6 mg/dL (2.5-4.9)
[2022-02-15 22:37] VITALS: BMI 38.3
[2022-02-15 22:51] VITALS: BP 125/80; PULSE 81; RESP 18; TEMP 36.9; O2SAT 92
[2022-02-15 22:53] VITALS: BP 0/0; PULSE 0; RESP 0; TEMP -17.7; TEMP 0
[2022-02-15] MEDS: Phenobarbital 32.4 MG Tablet 64.8 MG PO (23:19)
[2022-02-15] MEDS: Lactated Ringers 1,000 ML 125 ML IV (23:21)
[2022-02-15] MEDS: Insulin Glargine-YFGN 100 UNIT/ML Pen 40 UNIT SC (23:44)
[2022-02-15] MEDS: Insulin Lispro 100 UNIT/ML INSULN.PEN SC (23:45)
[2022-02-16 01:06] LABS: Bedside Glucose 419 mg/dL (74-106)
[2022-02-16] MEDS: Phenobarbital 32.4 MG Tablet 64.8 MG PO ×6 (03:17→22:33)
[2022-02-16 03:21] VITALS: BP 136/85; PULSE 68; RESP 18; TEMP 36.7; O2SAT 94
[2022-02-16 05:05] LABS: ALB/GLOB Ratio 0.9 RATIO (0.9-2.4); AST(SGOT) 71 U/L (15-37); Alanine Aminotransfer ALT/SGPT 81 U/L (16-61); Albumin, Serum 3.3 g/dL (3.2-5.0); Alkaline Phosphatase 120 U/L (45-117); Anion Gap 13 (5-15); BUN 12 mg/dL (7-18); BUN/Creat Ratio 17.3 RATIO (10-20); Calcium,Total 7.9 mg/dL (8.5-10.1); Chloride 103 mmol/L (98-107); Creatinine, Serum 0.69 mg/dL (0.70-1.30); EST Glomerular Filtration Rate 130 mL/min (>60); Est Glom Filt Rate - Afr Amer 157 mL/min (>60); Estimated Creatinine Clearance 136.65 ml/min; Globulin 3.7 g/dL (2.2-4.2); Glucose 281 mg/dL (74-106); Potassium 3.4 mmol/L (3.5-5.1); Sodium Level 135 mmol/L (136-145)
[2022-02-16 06:30] VITALS: BP 142/86; PULSE 70; RESP 16; TEMP 37.1; O2SAT 95
[2022-02-16] MEDS: Insulin Lispro 100 UNIT/ML INSULN.PEN SC ×4 (06:41→22:33)
[2022-02-16 06:56] LABS: Bedside Glucose 244 mg/dL (74-106)
--- NOTE | 2022-02-16 07:28 | PCM.PN.HOSP ---
Subjective Subjective Seen and examined. Patient has mild restlessness, anxiety. History of alcohol withdrawal seizures in the past. No hallucination or delusion. Patient not compliant with the insulin or glucose control at home. Objective Data Objective Data Vital Signs: Vital Signs Temp Pulse Resp BP Pulse Ox 98.7 F 70 16 142/86 H 95 02/16/22 06:30 02/16/22 06:30 02/16/22 06:30 02/16/22 06:30 02/16/22 06:30 Oxygen Delivery Method Room Air Weight: 268 lb 1.314 oz Body Mass Index (BMI) 38.3 Intake & Output: Intake and Output for Last 24 Hours 02/14/22 02/15/22 02/16/22 23:59 23:59 23:59 Intake Total 1000 / 1000 900 / 900 Balance 1000 / 1000 900 / 900 Lab / Micro Data Result Diagrams: 02/15/22 19:55 02/16/22 04:15 Labs: Laboratory Results - last 24 hr 02/15/22 19:55: WBC 9.2, RBC 4.81, Hgb 15.5, Hct 42.5, MCV 88.4, MCH 32.2 H, MCHC 36.5 H, RDW Std Deviation 47.8 H, RDW Coeff of Patito 14.8 H, Plt Count 127 L, MPV 11.0, Immature Gran % (Auto) 0.200, Neut % (Auto) 49.9, Lymph % (Auto) 40.4, [place] % (Auto) 6.3, Eos % (Auto) 2.2, Baso % (Auto) 1.0, Absolute Neuts (auto) 4.6, Absolute Lymphs (auto) 3.71, Nucleated RBC % 0 02/15/22 19:55: Sodium 135 L, Potassium 3.9, Chloride 100, Carbon Dioxide 21.0, Anion Gap 14, BUN 15, Creatinine 1.15, Estim Creat Clear Calc 81.99, Est GFR (MDRD) Af Amer 88, Est GFR (MDRD) Non-Af 72, BUN/Creatinine Ratio 13.0, Glucose 428 H, Calcium 8.0 L, Total Bilirubin 1.00, AST 83 H, ALT 91 H, Alkaline Phosphatase 120 H, Total Protein 7.5, Albumin 3.7, Globulin 3.8, Albumin/Globulin Ratio 1.0 02/15/22 19:55: Ethyl Alcohol 268.0 02/15/22 19:55: Phosphorus 3.6, Magnesium 1.9 02/15/22 19:55: Hemoglobin A1c 10.0 H 02/15/22 20:07: POC Glucose > 500 H* 02/15/22 20:10: Urine Opiates Screen NEGATIVE, Urine Methadone Screen NEGATIVE, Ur Barbiturates Screen NEGATIVE, Ur Phencyclidine Scrn NEGATIVE, Ur Amphetamines Screen NEGATIVE, MDMA (Ecstasy) Screen NEGATIVE, U Benzodiazepines Scrn NEGATIVE, Urine Cocaine Screen NEGATIVE, U Cannabinoids Screen POSITIVE H, Ur Drug Screen Comment 02/15/22 23:18: POC Glucose 419 H 02/16/22 04:15: Sodium 135 L, Potassium 3.4 L, Chloride 103, Carbon Dioxide 19.0 L, Anion Gap 13, BUN 12, Creatinine 0.69 L, Estim Creat Clear Calc 136.65, Est GFR (MDRD) Af Amer 157, Est GFR (MDRD) Non-Af 130, BUN/Creatinine Ratio 17.3, Glucose 281 H, Calcium 7.9 L, Total Bilirubin 0.90, AST 71 H, ALT 81 H, Alkaline Phosphatase 120 H, Total Protein 7.0, Albumin 3.3, Globulin 3.7, Albumin/Globulin Ratio 0.9 02/16/22 06:40: POC Glucose 244 H Radiography Diagnostic Testing: Radiology Impression Liver Ultrasound 02/15/22 21:58 IMPRESSION: 1. No shadowing gallstones. 2. CBD 5 mm. 3. Hepatomegaly and hepatic steatosis. Electronically Signed: Franklyn Winkler MD at 22:47 EDT , Physical Exam Narrative Physical exam General: Alert, Oriented x3, Cooperative, morbid obesity BMI 38.4 kg per metered square HEENT: Atraumatic, PERRLA, EOMI, Normocephalic Oral: No Gingival or Mucosal Lesions/ Ulcerations Neck: Supple, No JVD, Negative Carotid Bruits Lungs: Air entry diminished in bilateral lung bases. No crepitation/rhonchi Cardiovascular: Regular rate, Regular Rhythm, Normal S1, Normal S2, No murmurs Abdomen: Bowel Sounds Present, Soft, Non Tender, Non-Distended. Liver not enlarged and tender. Spleen not palpable. : No renal angle tenderness. No suprapubic tenderness. Extremities: No edema, Capillary Refill Less than 3 Seconds Skin: No rashes, No breakdown Musculoskeletal: No Tenderness to Palpation of Joints or Extremities Neurological: Cranial nerves II-XII grossly intact, DTR 2+/4, chronic bilateral legs numbness, decreased sensation, peripheral neuropathy Psych/Mental Status: Flat affect Assessment & Plan Assessment/Plan (1) Alcoholism: PLAN: Plan The patient is a 46 y/o M with multiple comorbidities as mentioned below admitted with acute alcohol intoxication. History of relapse, sober for 6 months then started drinking again in December 2021, tall boys, 6 to 8/day #1. Acute alcohol intoxication with high risk for withdrawal with history of chronic alcohol use disorder with dependence and tolerance: Patient is admitted to MedSurg floor. On phenobarbitone as per the protocol. Gabapentin for seizure prophylaxis. On other supportive medications as per order set as needed to control symptoms. Mild hypokalemia: Serum magnesium and phosphorus level normal. Potassium replaced. Monitor electrolytes. #2. Elevated BP without HTN Diagnosis: May be related to alcohol intoxication/withdrawal syndrome. Monitor BP. On as needed IV hydralazine. #3. Acute on chronic hepatitis, multiple etiologies, alcoholic hepatitis, and DESAI/metabolic syndrome: Patient ALT and AST has been elevated since February 2019. AST ALT ratio less than 1 which is unusual for alcoholic hepatitis which points to patient might have Desai as patient is morbidly obese, BMI 38.4 and uncontrolled diabetes type 2. Right upper quadrant sonogram shows no gallstones CBD 5 mm but hepatomegaly and hepatic steatosis which is consistent with hepatitis admission #4. 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 A1c 10.0, glucose was about 450s, more than 500 in ED. on gabapentin #5. Chronic thrombocytopenia: Admission platelets 127, similar to baseline noted to be primarily 120-130s. #6. Morbid obesity: BMI 38.4 kg per metered square. Service Delivery Supervisor consult. Weight loss, diet and exercise regimen discussed. #7. RONIT: Does not use CPAP or BIPAP. #8. DVT prophylaxis: Encourage ambulation. Clinical Impression(s) from Imaging Studies Liver Ultrasound 02/15/22 21:58 IMPRESSION: 1. No shadowing gallstones. 2. CBD 5 mm. 3. Hepatomegaly and hepatic steatosis. Laboratory Results 02/15/22 19:55: WBC 9.2, RBC 4.81, Hgb 15.5, Hct 42.5, MCV 88.4, MCH 32.2 H, MCHC 36.5 H, RDW Std Deviation 47.8 H, RDW Coeff of Patito 14.8 H, Plt Count 127 L, MPV 11.0, Immature Gran % (Auto) 0.200, Neut % (Auto) 49.9, Lymph % (Auto) 40.4, [place] % (Auto) 6.3, Eos % (Auto) 2.2, Baso % (Auto) 1.0, Absolute Neuts (auto) 4.6, Absolute Lymphs (auto) 3.71, Nucleated RBC % 0 02/15/22 19:55: Sodium 135 L, Potassium 3.9, Chloride 100, Carbon Dioxide 21.0, Anion Gap 14, BUN 15, Creatinine 1.15, Estim Creat Clear Calc 81.99, Est GFR (MDRD) Af Amer 88, Est GFR (MDRD) Non-Af 72, BUN/Creatinine Ratio 13.0, Glucose 428 H, Calcium 8.0 L, Total Bilirubin 1.00, AST 83 H, ALT 91 H, Alkaline Phosphatase 120 H, Total Protein 7.5, Albumin 3.7, Globulin 3.8, Albumin/Globulin Ratio 1.0 02/15/22 19:55: Ethyl Alcohol 268.0 02/15/22 19:55: Phosphorus 3.6, Magnesium 1.9 02/15/22 19:55: Hemoglobin A1c 10.0 H 02/15/22 20:07: POC Glucose > 500 H* 02/15/22 20:10: Urine Opiates Screen NEGATIVE, Urine Methadone Screen NEGATIVE, Ur Barbiturates Screen NEGATIVE, Ur Phencyclidine Scrn NEGATIVE, Ur Amphetamines Screen NEGATIVE, MDMA (Ecstasy) Screen NEGATIVE, U Benzodiazepines Scrn NEGATIVE, Urine Cocaine Screen NEGATIVE, U Cannabinoids Screen POSITIVE H, Ur Drug Screen Comment 02/15/22 23:18: POC Glucose 419 H 02/16/22 04:15: Sodium 135 L, Potassium 3.4 L, Chloride 103, Carbon Dioxide 19.0 L, Anion Gap 13, BUN 12, Creatinine 0.69 L, Estim Creat Clear Calc 136.65, Est GFR (MDRD) Af Amer 157, Est GFR (MDRD) Non-Af 130, BUN/Creatinine Ratio 17.3, Glucose 281 H, Calcium 7.9 L, Total Bilirubin 0.90, AST 71 H, ALT 81 H, Alkaline Phosphatase 120 H, Total Protein 7.0, Albumin 3.3, Globulin 3.7, Albumin/Globulin Ratio 0.9 02/16/22 06:40: POC Glucose 244 H Charges/Coding Visit Charges Inpatient E&M: 12979 Subs Hosp L2
[2022-02-16] MEDS: Thiamine Hydrochloride 100 MG Tablet PO (08:55)
[2022-02-16] MEDS: Folic Acid 1 MG Tablet PO (08:55)
[2022-02-16] MEDS: Na Biphos/Potassium Phosphate PACKET 1 PACKET PO ×5 (08:55→22:33)
[2022-02-16 08:58] VITALS: O2SAT 98
[2022-02-16] MEDS: Gabapentin 300 MG Capsule PO (11:05)
[2022-02-16] MEDS: Ondansetron 8 MG Tablet PO (11:06)
[2022-02-16 11:20] LABS: Bedside Glucose 307 mg/dL (74-106)
[2022-02-16 11:25] VITALS: BP 137/84; PULSE 68; RESP 18; TEMP 36.7; O2SAT 99
[2022-02-16] MEDS: Insulin Glargine-YFGN 100 UNIT/ML Pen 10 UNIT SC (12:00)
--- NOTE | 2022-02-16 12:55 | ADDICTION ---
This worker attempted to see pt. He was sleeping and requested this worker come back. TW will see him on 02/17.
[2022-02-16] MEDS: Insulin Lispro 100 UNIT/ML INSULN.PEN 10 UNIT SC (16:20)
[2022-02-16 16:36] LABS: Bedside Glucose 257 mg/dL (74-106)
[2022-02-16 18:00] VITALS: BP 142/106; PULSE 79; RESP 18; TEMP 36.8; O2SAT 100
[2022-02-16 22:46] LABS: Bedside Glucose 275 mg/dL (74-106)
[2022-02-16 22:54] VITALS: BP 138/92; PULSE 77; RESP 18; TEMP 36.3; O2SAT 97
[2022-02-17] MEDS: Phenobarbital 32.4 MG Tablet 64.8 MG PO ×4 (02:58→14:34)
[2022-02-17 05:36] LABS: Anion Gap 8 (5-15); BUN 10 mg/dL (7-18); BUN/Creat Ratio 12.5 RATIO (10-20); Calcium,Total 8.3 mg/dL (8.5-10.1); Chloride 100 mmol/L (98-107); EST Glomerular Filtration Rate 110 mL/min (>60); Est Glom Filt Rate - Afr Amer 133 mL/min (>60); Estimated Creatinine Clearance 117.86 ml/min; Glucose 271 mg/dL (74-106); Magnesium 2.1 mg/dL (1.6-2.6); Potassium 3.5 mmol/L (3.5-5.1); Sodium Level 134 mmol/L (136-145)
[2022-02-17 06:53] VITALS: BP 151/113; PULSE 93; RESP 18; TEMP 37.1; O2SAT 96
[2022-02-17 06:56] LABS: Bedside Glucose 289 mg/dL (74-106)
[2022-02-17 07:34] VITALS: O2SAT 96
[2022-02-17 09:17] VITALS: BP 145/100; PULSE 83; RESP 18; TEMP 37; O2SAT 92
[2022-02-17] MEDS: Folic Acid 1 MG Tablet PO (09:20)
[2022-02-17] MEDS: Thiamine Hydrochloride 100 MG Tablet PO (09:20)
[2022-02-17] MEDS: Insulin Lispro 100 UNIT/ML INSULN.PEN SC ×3 (09:20→16:17)
[2022-02-17] MEDS: Insulin Lispro 100 UNIT/ML INSULN.PEN 10 UNIT SC ×3 (09:21→16:18)
[2022-02-17] MEDS: Insulin Glargine-YFGN 100 UNIT/ML Pen 10 UNIT SC (09:22)
[2022-02-17] MEDS: Na Biphos/Potassium Phosphate PACKET 1 PACKET PO (09:23)
--- NOTE | 2022-02-17 10:49 | PCM.DC ---
Discharge Instructions Diet Discharge Diet: 1800 Calorie Control Diet Activity Discharge Activity: May Not Drive Weight Bearing Status: Weight bearing as tolerated Dressing / Incision Call your doctor if you observe: Fever of 101 or Higher, Coldness, Increased Pain, Numbness or Tingling, Change in Color, Inability to urinate, Inability to have a bowel movement, Shortness of breath, Dizziness, Fainting spells, Swelling in the ankles, Chest pain, Prolonged hiccupping, Increased palpitations (irregular heartbeat), Calf discomfort and Uncontrolled pain Follow Up Care Test Results: Test results from this visit will be discussed in further detail at your follow-up appointment, if applicable. Discharge Plan Admission Admit Date/Time: 02/15/22 21:35 Primary Reason for Your Visit: acute alcohol withdrawal syn Attending Provider: Vincent Carpenter Primary Care Provider: Indiana Smith Consulting Providers: Adriana Garcia Instructions Additional Instructions / Restrictions: f/u Outpatient alcohol counsellor and 180 rehab Discharge Orders/Prescriptions Prescriptions: Continued (DME) FreeStyle Test Strip See Rx Instructions .ROUTE .MEDSUPPLY Qty: 50 11RF Rx Instructions: check blood glucose daily (DME) lancets [FreeStyle Lancets] 28 gauge misc See Rx Instructions .ROUTE .MEDSUPPLY Qty: 50 11RF Rx Instructions: Check blood glucose daily for type 2 DM (DME) FreeStyle Colby 14 Day [place] Misc See Rx Instructions .ROUTE .MEDSUPPLY Qty: 1 0RF Rx Instructions: check blood glucose 4 times a day (DME) FreeStyle [place] 14 Day Sensor Kit See Rx Instructions .ROUTE .MEDSUPPLY Qty: 2 3RF Rx Instructions: As directed (DME) pen needle, diabetic [1st Tier Unifine Pentips] 32 gauge x 5/32 needle See Rx Instructions .ROUTE .MEDSUPPLY Qty: 100 3RF Rx Instructions: 4 times a day metformin 500 mg tablet 500 mg PO BID Label Comments: not sure if still taking with new prescription of trulicity. pt has not been taking [id number] acid 1 EACH tablet 1 ea PO DAILY (DME) pen needle, diabetic [Pen Needle] 31 gauge x 5/16 needle See Rx Instructions .ROUTE .MEDSUPPLY Qty: 1200 0RF Rx Instructions: use twice daily as directed for type 2 DM alcohol swabs [Alcohol Prep Pads] Pads, Medicated 1 pad topical TID Qty: 200 3RF (DME) blood-glucose meter [FreeStyle System Kit] Kit See Rx Instructions .ROUTE .MEDSUPPLY Qty: 1 0RF Rx Instructions: check blood glucose daily for type 2 DM Trulicity 0.75 mg/0.5 mL pen injector 0.75 mg subcut QWEEK Qty: 2 1RF Rx Instructions: monday x 2 weeks ago Referrals / Follow Up: [place] mSith MD [Primary Care Provider] - Within 1 Week (for uncontrolled DM-2) Kaylie Bain DO [STAFF PHYSICIAN] - Within 2 Weeks Disposition Disposition (needs filled in before D/C Order can be placed): Home, Self Care
[2022-02-17] MEDS: Insulin Glargine-YFGN 100 UNIT/ML Pen 20 UNIT SC (11:47)
--- NOTE | 2022-02-17 11:55 | DS.PCM_ITS ---
Providers Date of Admission: 02/15/22 Date of Discharge: 02/17/22 Primary Care Physician: Dr. Indiana Smith MD Reason For Visit: ETOH DETOXIFICATION Diagnosis Discharge Diagnosis (1) Alcoholism: Status: Acute Code(s): F10.20 - Alcohol dependence, uncomplicated Medications at Discharge Home Medications multivitamin-ferrous fumarate-folic acid 18 mg-400 mcg tablet 1 ea PO DAILY health 10/06/20 blood sugar diagnostic (FreeStyle Test) #50 ea 06/09/21 alcohol swabs (Alcohol Prep Pads) 1 pad topical TID #200 ea 06/16/21 pen needle, diabetic 31 gauge x 5/16 (Pen Needle) #1,200 ea 06/16/21 flash glucose scanning reader (FreeStyle Colby 14 Day [place]) #1 ea 06/30/21 flash glucose sensor (FreeStyle [place] 14 Day Sensor) #2 ea 06/30/21 lancets 28 gauge (FreeStyle Lancets) #50 ea 06/30/21 pen needle, diabetic 32 gauge x 5/32 (1st Tier Unifine Pentips) #100 ea 06/30/21 blood-glucose meter (FreeStyle System Kit) #1 ea 08/24/21 metformin 500 mg tablet 500 mg PO BID diabetis 01/12/22 dulaglutide 0.75 mg/0.5 mL subcutaneous pen injector (Trulicity) 0.75 mg (0.5 mL) subcut QWEEK #2 mL 01/13/22 losartan 50 mg tablet 50 mg PO DAILY #30 tabs 02/17/22 potassium chloride 20 mEq tablet,extended release 40 meq PO DAILY #10 tabs 02/17/22 Hospital Course Summary of Care Provided Hospital Course: The patient is a 46 y/o M with multiple comorbidities as mentioned below admitted with acute alcohol intoxication. History of relapse, sober for 6 months then started drinking again in December 2021, tall boys, 6 to 8/day #1. Acute alcohol intoxication with high risk for withdrawal with history of chronic alcohol use disorder with dependence and tolerance: Patient is admitted to MedSurg floor. On phenobarbitone as per the protocol. Gabapentin for seizure prophylaxis. On other supportive medications as per order set as needed to control symptoms. Mild hypokalemia: Serum magnesium and phosphorus level normal. Potassium replaced. Monitor electrolytes. Repeat potassium was 3.5 normal. Patient given his prescription for potassium supplement. #2. Elevated BP without HTN Diagnosis: May be related to alcohol intoxication/withdrawal syndrome. Monitor BP. On as needed IV hydralazine. 02/17: Blood pressure is still elevated. Prescription given for losartan 50 mg daily. Follow-up with PCP. #3. Acute on chronic hepatitis, multiple etiologies, alcoholic hepatitis, and PLUNKETT/metabolic syndrome: Patient ALT and AST has been elevated since February 2019. AST ALT ratio less than 1 which is unusual for alcoholic hepatitis which points to patient might have Plunkett as patient is morbidly obese, BMI 38.4 and uncontrolled diabetes type 2. Right upper quadrant sonogram shows no gallstones CBD 5 mm but hepatomegaly and hepatic steatosis which is consistent with hepatitis admission #4. 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 A1c 10.0, glucose was about 450s, more than 500 in ED. on gabapentin Patient has Trulicity at home. He is not taking any Lantus insulin or long- acting or short-acting insulin. Compliance reinforced. Patient advised follow- up PCP monitoring. Continue Trulicity. #5. Chronic thrombocytopenia: Admission platelets 127, similar to baseline noted to be primarily 120-130s. #6. Morbid obesity: BMI 38.4 kg per metered square. Electric Mule Operator consult. Weight loss, diet and exercise regimen discussed. #7. RONIT: Does not use CPAP or BIPAP. #8. DVT prophylaxis: Encourage ambulation. Discharge medication reconciliation done. Discharge follow-up instructions comp leted. Discharge process discussed with the patient and all questions were answered to patient's satisfaction. Patient is up on her outpatient follow-up with 180/outpatient substance use rehab. Discharged home Total time spent, exact 35 minutes on discharge meds reconciliation, examination, coordination of care with nurses and ancillary staff, review of imaging and blood test and discussion with the patient on follow-up instructions. Clinical Impression(s) from Imaging Studies Liver Ultrasound 02/15/22 21:58 IMPRESSION: 1. No shadowing gallstones. 2. CBD 5 mm. 3. Hepatomegaly and hepatic steatosis. Laboratory Results 02/15/22 19:55: WBC 9.2, RBC 4.81, Hgb 15.5, Hct 42.5, MCV 88.4, MCH 32.2 H, MCHC 36.5 H, RDW Std Deviation 47.8 H, RDW Coeff of Patito 14.8 H, Plt Count 127 L, MPV 11.0, Immature Gran % (Auto) 0.200, Neut % (Auto) 49.9, Lymph % (Auto) 40.4, [place] % (Auto) 6.3, Eos % (Auto) 2.2, Baso % (Auto) 1.0, Absolute Neuts (auto) 4.6, Absolute Lymphs (auto) 3.71, Nucleated RBC % 0 02/15/22 19:55: Sodium 135 L, Potassium 3.9, Chloride 100, Carbon Dioxide 21.0, Anion Gap 14, BUN 15, Creatinine 1.15, Estim Creat Clear Calc 81.99, Est GFR (MDRD) Af Amer 88, Est GFR (MDRD) Non-Af 72, BUN/Creatinine Ratio 13.0, Glucose 428 H, Calcium 8.0 L, Total Bilirubin 1.00, AST 83 H, ALT 91 H, Alkaline Phosphatase 120 H, Total Protein 7.5, Albumin 3.7, Globulin 3.8, Albumin/Globulin Ratio 1.0 02/15/22 19:55: Ethyl Alcohol 268.0 02/15/22 19:55: Phosphorus 3.6, Magnesium 1.9 02/15/22 19:55: Hemoglobin A1c 10.0 H 02/15/22 20:07: POC Glucose > 500 H* 02/15/22 20:10: Urine Opiates Screen NEGATIVE, Urine Methadone Screen NEGATIVE, Ur Barbiturates Screen NEGATIVE, Ur Phencyclidine Scrn NEGATIVE, Ur Amphetamines Screen NEGATIVE, MDMA (Ecstasy) Screen NEGATIVE, U Benzodiazepines Scrn NEGATIVE, Urine Cocaine Screen NEGATIVE, U Cannabinoids Screen POSITIVE H, Ur Drug Screen Comment 02/15/22 23:18: POC Glucose 419 H 02/16/22 04:15: Sodium 135 L, Potassium 3.4 L, Chloride 103, Carbon Dioxide 19.0 L, Anion Gap 13, BUN 12, Creatinine 0.69 L, Estim Creat Clear Calc 136.65, Est GFR (MDRD) Af Amer 157, Est GFR (MDRD) Non-Af 130, BUN/Creatinine Ratio 17.3, Glucose 281 H, Calcium 7.9 L, Total Bilirubin 0.90, AST 71 H, ALT 81 H, Alkaline Phosphatase 120 H, Total Protein 7.0, Albumin 3.3, Globulin 3.7, Albumin/Globuli n Ratio 0.9 02/16/22 06:40: POC Glucose 244 H Physical Exam Narrative Physical exam General: Alert, Oriented x3, Cooperative, morbid obesity BMI 38.4 KG per metered square HEENT: Atraumatic, PERRLA, EOMI, Normocephalic Oral: No Gingival or Mucosal Lesions/ Ulcerations Neck: Supple, No JVD, Negative Carotid Bruits Lungs: Air entry diminished in bilateral lung bases. No crepitation/rhonchi Cardiovascular: Regular rate, Regular Rhythm, Normal S1, Normal S2, No murmurs Abdomen: Bowel Sounds Present, Soft, Non Tender, Non-Distended. Liver not enlarged or tender. No splenomegaly : No renal angle tenderness. No suprapubic tenderness. Extremities: No edema, Capillary Refill Less than 3 Seconds Skin: No rashes, No breakdown Musculoskeletal: No Tenderness to Palpation of Joints or Extremities Neurological: Cranial nerves II-XII grossly intact, DTR 2+/4, chronic bilateral legs numbness, peripheral neuropathy Psych/Mental Status: Flat affect Weight / BMI Weight Weight: 268 lb 1.314 oz Body Mass Index (BMI) 38.3 ABG / Lab / Microbiology Data Result Diagrams: 02/15/22 19:55 02/17/22 03:52 Laboratory: Laboratory Results - last 24 hr 02/16/22 16:19: POC Glucose 257 H 02/16/22 22:32: POC Glucose 275 H 02/17/22 03:52: Sodium 134 L, Potassium 3.5, Chloride 100, Carbon Dioxide 26.0, Anion Gap 8, BUN 10, Creatinine 0.80, Estim Creat Clear Calc 117.86, Est GFR (MDRD) Af Amer 133, Est GFR (MDRD) Non-Af 110, BUN/Creatinine Ratio 12.5, Glucose 271 H, Calcium 8.3 L, Magnesium 2.1 02/17/22 06:49: POC Glucose 289 H D/C Instructions Discharge Diet: 1800 Calorie Control Diet Weight Bearing Status: Weight bearing as tolerated Call your doctor if you observe: Fever of 101 or Higher, Coldness, Increased Pain, Numbness or Tingling, Change in Color, Inability to urinate, Inability to have a bowel movement, Shortness of breath, Dizziness, Fainting spells, Swelling in the ankles, Chest pain, Prolonged hiccupping, Increased palpitations (irregular heartbeat), Calf discomfort and Uncontrolled pain Meaningful Use Info Meaningful Use Diagnoses (Choose all that apply): None applicable Discharge Plan Admission Admit Date/Time: 02/15/22 21:35 Primary Reason for Your Visit: acute alcohol withdrawal syn Attending Provider: Vincent Carpenter Primary Care Provider: Indiana Smith Consulting Providers: dAriana Garcia Instructions Additional Instructions / Restrictions: f/u Outpatient alcohol counsellor and [facility] rehab Discharge Orders/Prescriptions Prescriptions: New losartan 50 mg tablet 50 mg PO DAILY Qty: 30 0RF potassium chloride 20 mEq tablet extended release 40 meq PO DAILY Qty: 10 0RF Continued (DME) FreeStyle Test Strip See Rx Instructions .ROUTE .MEDSUPPLY Qty: 50 11RF Rx Instructions: check blood glucose daily (DME) lancets [FreeStyle Lancets] 28 gauge misc See Rx Instructions .ROUTE .MEDSUPPLY Qty: 50 11RF Rx Instructions: Check blood glucose daily for type 2 DM (DME) FreeStyle Colby 14 Day [place] Misc See Rx Instructions .ROUTE .MEDSUPPLY Qty: 1 0RF Rx Instructions: check blood glucose 4 times a day (DME) FreeStyle [place] 14 Day Sensor Kit See Rx Instructions .ROUTE .MEDSUPPLY Qty: 2 3RF Rx Instructions: As directed (DME) pen needle, diabetic [1st Tier Unifine Pentips] 32 gauge x 5/32 needle See Rx Instructions .ROUTE .MEDSUPPLY Qty: 100 3RF Rx Instructions: 4 times a day metformin 500 mg tablet 500 mg PO BID Label Comments: not sure if still taking with new prescription of trulicity. pt has not been taking kwaffpamohid-ebyn-debkx acid 1 EACH tablet 1 ea PO DAILY (DME) pen needle, diabetic [Pen Needle] 31 gauge x 5/16 needle See Rx Instructions .ROUTE .MEDSUPPLY Qty: 1200 0RF Rx Instructions: use twice daily as directed for type 2 DM alcohol swabs [Alcohol Prep Pads] Pads, Medicated 1 pad topical TID Qty: 200 3RF (DME) blood-glucose meter [FreeStyle System Kit] Kit See Rx Instructions .ROUTE .MEDSUPPLY Qty: 1 0RF Rx Instructions: check blood glucose daily for type 2 DM Trulicity 0.75 mg/0.5 mL pen injector 0.75 mg subcut QWEEK Qty: 2 1RF Rx Instructions: monday x 2 weeks ago Referrals / Follow Up: Indiana Smith MD [Primary Care Provider] - Within 1 Week (for uncontrolled DM- 2) Kaylie Bain DO [STAFF PHYSICIAN] - Within 2 Weeks Disposition Disposition (needs filled in before D/C Order can be placed): Home, Self Care Charges/Coding Visit Charges Inpatient E&M: 26656 Disch Hosp
[2022-02-17 11:56] LABS: Bedside Glucose 263 mg/dL (74-106)
--- NOTE | 2022-02-17 11:57 | ADDICTION ---
This scientific technical writer met with PT to conduct ASAM, MSE, AUDIT assessments and to plan for d/c. PT A+Ox4 and participated actively. All assessments completed, faxed to [facility] and placed in PT's chart. PT plans to f/u with individual counselor at [facility] for follow-up counseling services. PT did not indicate a need for transportation post d/c from [facility].
[2022-02-17 14:33] VITALS: BP 131/91; PULSE 90; RESP 18; TEMP 36.8; O2SAT 96
[2022-02-17 16:25] LABS: Bedside Glucose 389 mg/dL (74-106)
== END 2022-02-17 17:23 | disposition home or self-care (01) | DRG 775 ==
LOC: ED 21:35 → MS3 21:55
PROVIDERS: Admitting Provider Family Medicine; Emergency Provider Emergency Medicine; PCP Internal Medicine; Visit Provider Internal Medicine
DX: F10.229 Alcohol dependence with intoxication, unspecified (principal); D69.6 Thrombocytopenia, unspecified; E11.40 Type 2 diabetes mellitus with diabetic neuropathy, unspecified; E11.65 Type 2 diabetes mellitus with hyperglycemia; E66.01 Morbid (severe) obesity due to excess calories; Z79.4 Long term (current) use of insulin; F10.20 Alcohol dependence, uncomplicated; G62.1 Alcoholic polyneuropathy; E88.81 Metabolic syndrome and other insulin resistance; K70.10 Alcoholic hepatitis without ascites; K75.81 Nonalcoholic steatohepatitis (NASH); G47.33 Obstructive sleep apnea (adult) (pediatric); E87.6 Hypokalemia; F41.9 Anxiety disorder, unspecified; R16.0 Hepatomegaly, not elsewhere classified; R03.0 Elevated blood-pressure reading, without diagnosis of hypertension; Z68.38 Body mass index [BMI] 38.0-38.9, adult; Y90.8 Blood alcohol level of 240 mg/100 ml or more
CPT/HCPCS: 36415; 76705; 80048; 80053; 80307; 82077; 82962; 83036; 83735; 84100; 85025; 97802; 99282; J7030; J7120

== ENCOUNTER 2022-03-03 18:46 | Inpatient (IN) | payer MEDICAID, SELFPAY ==
[2022-03-03 18:47] VITALS: BP 144/85; PULSE 97; RESP 16; TEMP 36.3; O2SAT 91; BMI 39.4
--- NOTE | 2022-03-03 19:10 | EKG12_ITS ---
Test Reason : hyperglycemia Blood Pressure : / mmHG Vent. Rate : 085 BPM Atrial Rate : 085 BPM P-R Int : 130 ms QRS Dur : 104 ms QT Int : 364 ms P-R-T Axes : 036 -29 038 degrees QTc Int : 433 ms Normal sinus rhythm Normal ECG Confirmed by AYO MCNEAL MD ([id number]), assignment desk editor PATTIE CROWELL ([id number]) on 03/07/2022 11:22:09 AM Referred By: Cg Confirmed By:AYO MCNEAL MD
[2022-03-03 19:16] LABS: Bedside Glucose > 500 mg/dL (74-106)
[2022-03-03] MEDS: 0.9% Normal Saline 1,000 ML 999 ML IV ×3 (19:21→23:44)
[2022-03-03 19:29] LABS: Mucous, Urine 0 SEEN /hpf (<or=2+); Red Blood Cells-Urine 0 SEEN /hpf (0-5); Squamous Epithelial Cells - UA 0 SEEN /hpf (0-5); White Blood Cells 0 SEEN /hpf (0-5)
--- NOTE | 2022-03-03 19:30 | RAD_ITS ---
STUDY: X-RAY CHEST REASON FOR EXAM: Male, 46 years old. Hyperglycemia. Nausea. TECHNIQUE: Single AP portable view of the chest. COMPARISON: 02/21/2019. FINDINGS: The lungs are clear and expanded. There is no demonstrated pleural abnormality. Normal size heart. Normal mediastinum and terrie. Normal visualized pulmonary arteries. Normal visualized aortic arch and descending thoracic aorta. There are diffuse degenerative changes of the visualized thoracic spine. Normal visualized ribs, clavicles, and shoulders. There is no demonstrated abnormality of the visualized soft tissue structures of the upper abdomen. RAD/Chest 1 View (Portable) IMPRESSION: Degenerative changes, as described above. No demonstrated acute cardiopulmonary process. Electronically Signed: Guillermo Perez DO at 20:13 EDT ,
[2022-03-03 19:31] LABS: Color, Urine Straw (Yellow); Glucose, Dipstick 1000 mg/dl (Normal); Ketone-Dipstick 5 mg/dl (Negative); Leukocyte Esterase-Dipstick Negative /ul (Negative); Nitrite-Dipstick Negative (Negative); Occult Blood-Urine Negative /ul (Negative); Protein-Dipstick Negative (Negative); Urine Bilirubin Dipstick Negative (Negative); Urine Clarity Clear (Clear); Urine Urobilinogen Normal (Normal)
[2022-03-03 19:35] LABS: Bedside Glucose > 500 mg/dL (74-106)
--- NOTE | 2022-03-03 19:35 | US_ITS ---
STUDY: ABDOMINAL ULTRASOUND - RIGHT UPPER QUADRANT REASON FOR VISIT: Male, 46 years old. Right upper quadrant pain. Nausea and vomiting. TECHNIQUE: Ultrasound evaluation of the right upper quadrant was performed with real-time and static askew-scale imaging. TECHNICAL QUALITY: Examination limited by bowel gas. COMPARISON: Abdominal ultrasound, 02/15/2022. FINDINGS: Liver: The liver measures 21.7 cm. There is increased echogenicity consistent with fatty infiltration. The bile ducts are within normal limits. There is hepatic color flow. The direction of portal flow is hepatopetal. There is no demonstrated mass lesion. Gallbladder: Normal distended gallbladder. The gallbladder wall measures 2 mm. There is a negative sonographic Guthrie''s sign. There is no pericholecystic fluid. There are no gallstones. Common Bile Duct (C.B.D.): The common bile duct measures 5 mm. Pancreas: Normal size of the head and body of the pancreas. The tail is obscured. There is normal echogenicity of the pancreas. There is no demonstrated pancreatic mass or cyst. Right Kidney: Normal size of the right kidney. The right kidney measures 12.6 cm. Normal renal cortex. The right cortex measures 2.1 cm. There is no demonstrated renal mass or cyst. There is no right hydronephrosis. US/Gallbladder IMPRESSION: 1. Enlarged fatty infiltrated liver without mass. 2. Otherwise normal right upper quadrant abdominal ultrasound. There is no major interval change. Electronically Signed: Guillermo Perez DO at 20:30 EDT ,
--- NOTE | 2022-03-03 19:36 | EX.ED.DYSGE1 ---
HPI History of Present Illness Chief Complaint: Hyperglycemia Informant: patient Narrative Narrative: Patient is a 46-year-old male with history of alcohol abuse, diabetes mellitus with poor glycemic control presenting with abdominal pain, nausea, vomiting and elevated blood sugars. Patient was actually hospitalized about 3 weeks ago for alcohol detox and at that time was found to be hyperglycemic as well. Since being home he has continued drinking alcohol but states he is drinking less than he was before his hospitalization. His girlfriend privately told nursing staff that he has been drinking all day. Patient states he drinks beer. Patient notes he has been having increased fatigue, feeling sick and having nausea and vomiting for couple days. He denies any change in his bowel habits. Denies any chest pain difficulty breathing. Feels increased thirst and has increased urination. No other complaints at this time. [facility] Medical History (Updated 03/03/22 @ 21:[address] Adriana Garcia MD) Alcohol abuse Carpal tunnel syndrome Diabetes Former smoker Obesity Seasonal allergies Sleep apnea Transaminitis Type 2 diabetes mellitus Home Medications multivitamin-ferrous fumarate-folic acid 18 mg-400 mcg tablet 1 ea PO DAILY health 10/06/20 [History Last Taken 10/12/20] blood sugar diagnostic (FreeStyle Test strips) #50 ea 06/09/21 [Rx Last Taken Unknown] alcohol swabs (Alcohol Prep Pads) 1 pad topical TID #200 ea 06/16/21 [Rx Last Taken Unknown] pen needle, diabetic 31 gauge x /16 (Pen Needle) #1,200 ea 06/16/21 [Rx Last Taken Unknown] lancets 28 gauge (FreeStyle Lancets) #50 ea 06/30/21 [Rx Last Taken Unknown] blood-glucose meter (FreeStyle System Kit) #1 ea 08/24/21 [Rx Last Taken Unknown] dulaglutide 0.75 mg/0.5 mL subcutaneous pen injector (Trulicity) 0.75 mg (0.5 mL) subcut QWEEK #2 mL 01/13/22 [Rx Last Taken Unknown] losartan 50 mg tablet 50 mg PO DAILY #30 tabs 02/17/22 [Rx Last Taken Unknown] flash glucose scanning reader (FreeStyle Colby 14 Day [place]) #1 ea 02/18/22 [Rx Last Taken Unknown] flash glucose sensor (FreeStyle Colby 14 Day Sensor kit) #2 ea 02/18/22 [Rx Last Taken Unknown] metformin 500 mg tablet 500 mg PO BID diabetis #180 tabs 02/18/22 [Rx Last Taken Unknown] pen needle, diabetic 32 gauge x 5/32 (1st Tier Unifine Pentips) #100 ea 02/18/22 [Rx Last Taken Unknown] Allergy/AdvReac Type Severity Reaction Status Date / Time No Known Allergies Allergy Verified 03/03/22 18:49 Family History Daughter Thyroid disorder Father Cancer Unclear type. Mother Renee-[place] syndrome Other Alcoholism in family Surgical History history of tibia/fibula surgery History of tonsillectomy Social History (Updated 03/03/22 @ 21:[address] Adriana Garcia MD) household members: spouse housing: house current occupational status: employed current occupation: Delivery Smoking Status: Former smoker alcohol intake: current details: Detox program 02/15/2022, 6-8 tall boys daily, started again at discharge. substance use type: does not use what type of physical activity do you participate in: running and weight training frequency: 3-4 times per week ROS ROS ED Constitutional Constitutional ED: Reports sweats and other Details: fatigue ; Denies chills Eyes Eyes: Denies blurry vision ENT ENT ED: Denies sore throat Cardiovascular Cardiovascular: Denies chest pain Respiratory/Chest Respiratory/Chest: Denies cough Gastrointestinal Gastrointestinal: Reports abdominal pain, nausea and vomiting; Denies constipation or diarrhea Genitourinary Genitourinary ED: Reports urinary frequency; Denies dysuria or hematuria Musculoskeletal Musculoskeletal: Denies arthralgias Integumentary Denies rash Neurologic Neurologic: Reports weakness; Denies headache(s) Psychiatric Psychiatric: Denies anxiety EXAM Physical Exam Const Vital Signs: 03/03/22 18:47 03/03/22 21:19 Temperature 97.3 F L Temperature Source Temporal Pulse Rate 97 85 Respiratory Rate 16 16 Blood Pressure 144/85 H 125/82 H Blood Pressure Mean 104 96 Pulse Ox 91 97 Oxygen Delivery Method Room Air Room Air Positive well nourished and well developed Constitutional Narrative: somulent General Appearance ED: well developed and NAD HEENT Reports dry mucous membranes Negative for trauma Mouth ED: Yes dry mucous membranes Mouth: dry mucous membranes Eyes PERRL and EOMs intact bilaterally Neck supple and no JVD Chest Wall inspection of chest normal and palpation of chest normal Resp normal respiratory effort and clear to auscultation bilaterally Cardio regular rate and no murmurs GI non-distended GI Narrative: Negative Guthrie's sign. No lower abdominal tenderness to palpation Auscultation: normoactive bowel sounds Palpation: soft and tender RUQ; Negative for guarding Back/Spine no CVA tenderness Extremity normal to inspection Neuro oriented x3 and CN's II-XII intact bilaterally Neuro Narrative: Somnolent Motor Exam: general weakness Psych mental status grossly normal Skin no rashes or lesions noted and no wounds MDM MDM MDM Narrative Medical decision making narrative: Patient is evaluated for generalized malaise as well as hyperglycemia. He does have a history of alcohol abuse as well as diabetes mellitus. Patient states he is not on insulin but he is on weekly dulaglutide which she states has been compliant with. Patient does have some mild tenderness in his right upper quadrant. CBC is normal. BMP shows a mild hyponatremia of 131 however he does have glucose of 545 slightly this is a pseudohyponatremia. Acetone is negative and anion gap is normal. Alcohol level is elevated at 103. Patient's calculated serum osmolality is approximately 320. Patient is given a total of 2 L of IV fluid. He is given potassium placement started on insulin drip. He does have improvement on repeat evaluation after receiving IV Zofran and fluids. Lab Data Attestation: I reviewed the patient's lab results. Labs: Laboratory Results - last 24 hr 03/03/22 03/03/22 03/03/22 18:53 19:10 19:10 WBC RBC Hgb Hct MCV MCH MCHC RDW Std Deviation RDW Coeff of Patito Plt Count MPV Immature Gran % (Auto) Neut % (Auto) Lymph % (Auto) [place] % (Auto) Eos % (Auto) Baso % (Auto) Absolute Neuts (auto) Absolute Lymphs (auto) Nucleated RBC % Sodium Potassium Chloride Carbon Dioxide Anion Gap BUN Creatinine Estim Creat Clear Calc Est GFR (MDRD) Af Amer Est GFR (MDRD) Non-Af BUN/Creatinine Ratio Glucose Calcium Phosphorus Magnesium Urine Color Straw Urine Clarity Clear Urine pH 6.0 Ur Specific [place] 1.010 Urine Protein Negative Urine Glucose (UA) 1000 H Urine Ketones 5 H Urine Occult Blood Negative Urine Nitrite Negative Urine Bilirubin Negative Urine Urobilinogen Normal Ur Leukocyte Esterase Negative Urine RBC 0 SEEN Urine WBC 0 SEEN Ur Squamous Epith Cells 0 SEEN Urine Bacteria RARE Urine Mucus 0 SEEN Ethyl Alcohol Acetone Level POC Glucose > 500 H* > 500 H* 03/03/22 03/03/22 03/03/22 19:15 19:15 19:15 WBC 8.8 RBC 4.84 Hgb 15.6 Hct 43.4 MCV 89.7 MCH 32.2 H MCHC 35.9 RDW Std Deviation 45.5 H RDW Coeff of Patito 14.2 Plt Count 153 MPV 11.5 Immature Gran % (Auto) 0.300 Neut % (Auto) 67.2 Lymph % (Auto) 23.2 [place] % (Auto) 7.2 Eos % (Auto) 1.5 Baso % (Auto) 0.6 Absolute Neuts (auto) 5.9 Absolute Lymphs (auto) 2.04 Nucleated RBC % 0 Sodium 131 L Potassium 3.9 Chloride 95 L Carbon Dioxide 24.0 Anion Gap 12 BUN 9 Creatinine 1.00 Estim Creat Clear Calc 94.29 Est GFR (MDRD) Af Amer 103 Est GFR (MDRD) Non-Af 85 BUN/Creatinine Ratio 9.0 L Glucose 545 H* Calcium 8.9 Phosphorus 3.6 Magnesium 2.0 Urine Color Urine Clarity Urine pH Ur Specific [place] Urine Protein Urine Glucose (UA) Urine Ketones Urine Occult Blood Urine Nitrite Urine Bilirubin Urine Urobilinogen Ur Leukocyte Esterase Urine RBC Urine WBC Ur Squamous Epith Cells Urine Bacteria Urine Mucus Ethyl Alcohol 103.0 Acetone Level NEGATIVE POC Glucose Radiography Chest X-Ray - ED: 1 View, Read by ED Physician, Read by Radiologist and No Acute Disease Diagnostic Testing: Clinical Impression(s) from Imaging Studies Chest X-Ray 03/03/22 19:30 IMPRESSION: Degenerative changes, as described above. No demonstrated acute cardiopulmonary process. Electronically Signed: Guillermo Perez DO at 20:13 EDT Reading Location ID and State: [facility] / [place] Tel [phone], Service support , Gallbladder Ultrasound 03/03/22 19:35 IMPRESSION: 1. Enlarged fatty infiltrated liver without mass. 2. Otherwise normal right upper quadrant abdominal ultrasound. There is no major interval change. Electronically Signed: Guillermo Perez at 20:30 EDT Reading Location ID and State: [address] [place] [address] Tel [phone], Service support , Rhythm Strip Rhythm Strip: Sinus Rhythm Rate: 85 Ectopy: None EKG Initial EKG: Attestation: I personally reviewed and interpreted this EKG as follows: Interpretation: Sinus Rhythm Comments: Normal sinus rhythm at a rate of 85 Normal axis Normal intervals Normal ST segments Discharge Plan Triage Chief Complaint: Hyperglycemia ED Provider: Kassy Higuera Dx/Rx/DC Orders Primary Care Provider: Indiana Smith
[2022-03-03] MEDS: Ondansetron 4 MG/2 ML Vial IV (19:38)
[2022-03-03 19:58] LABS: Bacteria RARE /hpf (None Seen)
[2022-03-03 20:14] LABS: Absolute Lymphocyte Count 2.04 X10^3/uL (0.83-4.51); Absolute Neutrophil Count 5.9 X10^3/uL (2.0-7.7); Basophil# 0.05 X10^3/uL; Basophil% 0.6 % (0-1); Eosinophil# 0.13 X10^3/uL; Eosinophils% 1.5 % (0-5); Hematocrit 43.4 % (40-54); Hemoglobin 15.6 g/dL (13.0-16.5); Lymphocyte # 2.04 X10^3/ul (0.83-4.51); Lymphocyte % 23.2 % (19-41); Mean Corp Hgb Conc 35.9 g/dL (32-36); Mean Corpuscular Hgb 32.2 pg (27.0-32.0); Mean Corpuscular Volume 89.7 fL (80-94); Mean Platelet Vol. 11.5 fl (6.2-12.0); Monocyte# 0.63 X10^3/uL; Monocyte% 7.2 % (0-10); NRBC Flagged by Analyzer 0 % (0-5); Neutrophil # 5.91 X10^3/uL (2.7-7.7); Neutrophil % 67.2 % (47-70); Platelet Count 153 K/mm3 (150-450); RBC Distribution Width CV 14.2 % (11.6-14.6); RBC Distribution Width SD 45.5 fl (35.1-43.9); Red Blood Count 4.84 M/mm3 (4.6-6.2); White Blood Count 8.8 K/mm3 (4.4-11.0)
[2022-03-03 20:21] LABS: Anion Gap 12 (5-15); BUN 9 mg/dL (7-18); Calcium,Total 8.9 mg/dL (8.5-10.1); Chloride 95 mmol/L (98-107); EST Glomerular Filtration Rate 85 mL/min (>60); Est Glom Filt Rate - Afr Amer 103 mL/min (>60); Estimated Creatinine Clearance 94.29 ml/min; Glucose 545 mg/dL (74-106); Phosphorus 3.6 mg/dL (2.5-4.9); Potassium 3.9 mmol/L (3.5-5.1); Sodium Level 131 mmol/L (136-145)
[2022-03-03 20:40] LABS: Lipase 284 U/L (73-393); Troponin-I HS 6 pg/mL (3.0-78.0)
--- NOTE | 2022-03-03 21:11 | HP.PCM.HOS_ITS ---
HPI - General General Date of Admission: 03/03/22 Date of Service: 03/03/22 Chief Complaint: Elevated BS, Nausea at home. HPI Narrative The patient is a 46 y/o M w/ PMHx: Obesity, Diabetes mellitus type II, RONIT, Allergic Rhinitis, Former tobacco use, EtOH abuse (sober x 6 months, started drinking daily again 12/2021 tall boys, ~ 6-8 daily, recent 02/15/22 EtOH detoxification program admission) with chronically elevated LFTs who presents to the [facility] ED on 03/03/22 with history of onset of abdominal discomfort, nausea and emesis with elevated blood sugars with history of hospitalization 3 weeks prior as noted for alcohol detox program at that time with notably uncontrolled diabetes mellitus evidence during his presentation with reportedly since being home resumption of alcohol intake although he reports has been drinking less since his hospitalization however patient significant reported to staff that he has been drinking all day nearly every day with increased fatigue and GI symptoms as noted with unchanged bowel patterns with polyuria and polydipsia prompting ED evaluation. Patient from review of prior records was discharged h ome on metformin. Recent 02/15/22 HgbA1c 10%. Work-up in the ED included T97.3, heart rate 97, BP 144/85, respiratory rate 16, 91 to 96% on room air, 91 to 96% on room air, CBC with WC 8.8, hemoglobin 15.6, platelet 153 without any marked shift, CMP with sodium 131, chloride 95, glucose 545, anion gap normal 12, BUN/creat 9/1.0, magnesium 2.0, phosphorus 3.6, troponin 6, lipase 24, urinalysis with no obvious evidence of dehydration, glucose 1000, ketone 5 otherwise unremarkable, chest x-ray with no acute cardiopulmonary finding, gallbladder ultrasound unremarkable aside from enlarged fatty infiltrated liver, ethyl alcohol level of 103. In the ED patient administered 2L NS, K supplementation and started on insulin drip. [facility] Medical History (Updated 03/03/22 @ 21:[address] Adriana Garcia MD) Alcohol abuse Carpal tunnel syndrome Diabetes Former smoker Obesity Seasonal allergies Sleep apnea Transaminitis Type 2 diabetes mellitus Home Medications multivitamin-ferrous fumarate-folic acid 18 mg-400 mcg tablet 1 ea PO DAILY health 10/06/20 [History Last Taken 10/12/20] blood sugar diagnostic (FreeStyle Test strips) #50 ea 06/09/21 [Rx Last Taken Unknown] alcohol swabs (Alcohol Prep Pads) 1 pad topical TID #200 ea 06/16/21 [Rx Last Taken Unknown] pen needle, diabetic 31 gauge x 5/16 (Pen Needle) #1,200 ea 06/16/21 [Rx Last Taken Unknown] lancets 28 gauge (FreeStyle Lancets) #50 ea 06/30/21 [Rx Last Taken Unknown] blood-glucose meter (FreeStyle System Kit) #1 ea 08/24/21 [Rx Last Taken Unknown] dulaglutide 0.75 mg/0.5 mL subcutaneous pen injector (Trulicity) 0.75 mg (0.5 mL) subcut QWEEK #2 mL 01/13/22 [Rx Last Taken Unknown] losartan 50 mg tablet 50 mg PO DAILY #30 tabs 02/17/22 [Rx Last Taken Unknown] flash glucose scanning reader (FreeStyle Colby 14 Day [place]) #1 ea 02/18/22 [Rx Last Taken Unknown] flash glucose sensor (FreeStyle Colby 14 Day Sensor kit) #2 ea 02/18/22 [Rx Last Taken Unknown] metformin 500 mg tablet 500 mg PO BID diabetis #180 tabs 02/18/22 [Rx Last Taken Unknown] pen needle, diabetic 32 gauge x 5/32 (1st Tier Unifine Pentips) #100 ea 02/18/22 [Rx Last Taken Unknown] Allergy/AdvReac Type Severity Reaction Status Date / Time No Known Allergies Allergy Verified 03/03/22 18:49 Family History Daughter Thyroid disorder Father Cancer Unclear type. Mother Renee-Rockland syndrome Other Alcoholism in family Surgical History history of tibia/fibula surgery History of tonsillectomy Social History (Updated 03/03/22 @ 21:[address] Adriana Garcia MD) household members: spouse housing: house current occupational status: employed current occupation: Delivery Smoking Status: Former smoker alcohol intake: current details: Detox program 02/15/2022, 6-8 tall boys daily, started again at discharge. substance use type: does not use what type of physical activity do you participate in: running and weight training frequency: 3-4 times per week ROS ROS Narrative Admission Review of Systems: CONSTITUTIONAL: No weight loss, fever, chills, + weakness or fatigue. HEENT: Eyes: No visual loss, blurred vision, double vision or yellow sclerae. Ears, Nose, Throat: No hearing loss, sneezing, congestion, runny nose or sore throat. SKIN: No rash or itching, lesions, wounds. CARDIOVASCULAR: No chest pain, chest pressure or chest discomfort, palpitations, edema, orthopnea, syncopal events. RESPIRATORY: No shortness of breath, cough or sputum, wheezing, hemoptysis. GASTROINTESTINAL: + anorexia, nausea, vomiting, abdominal cramping, No diarrhea, melena, BRBPR. GENITOURINARY: No dysuria, frequency, urgency or retention. NEUROLOGICAL: No headache, dizziness, syncope, paralysis, ataxia, numbness or tingling in the extremities, focal weakness, change in bowel or bladder control, seizure. MUSCULOSKELETAL: + muscle, back pain, joint pain or stiffness. HEMATOLOGIC: No anemia, bleeding or bruising. LYMPHATICS: No enlarged nodes. No history of splenectomy. PSYCHIATRIC: No history of depression or anxiety. ENDOCRINOLOGIC: No reports of sweating, cold or heat intolerance. + polyuria or polydipsia. ALLERGIES: No history of asthma, hives, eczema or rhinitis. Vital Signs Vital Signs Vital Signs: 03/03/22 18:47 Temperature 97.3 F L Temperature Source Temporal Pulse Rate 97 Respiratory Rate 16 Blood Pressure 144/85 H Blood Pressure Mean 104 Pulse Ox 91 Oxygen Delivery Method Room Air Weight Weight: 275 lb Body Mass Index (BMI) 39.4 Physical Exam Narrative Physical Examination: General: Awake, alert, oriented x 3 and cooperative, laying in the ED bed, fat igued, not severely ill appearing. Skin: Normal color, normal turgor, no icterus, no cyanosis. HEENT: AT/NC, EOMI, PERRLA, dry MM, no carotid bruits or JVD noted. Lungs: Diminished, greater bases, moderate effort, no rales, ronchi or wheezing. Heart: Currently regular rate and rhythm; no gallop, rub audible. Abdomen: Soft, morbidly obese, mild generalized discomfort with palpation but no focal tenderness, no guarding, difficult assess distention given habitus, mildly hyperactive bowel sounds, no obvious HSM but habitus makes evaluation difficult Extremities: No cyanosis, clubbing, or edema. Neurological: Patient awake, alert, oriented as noted, cognitive function intact; pupils equally reactive to light and accommodation, cranial nerves II- XII grossly normal, moving all 4 extremities, no focal deficits, strength moderately global decrease secondary to acute presentation and complaints. Psychiatric: Affect appears fatigued, does not appear any severe pain, no acute evidence of depressive or anxiety feelings. Results Lab / Micro Data Result Diagrams: 03/03/22 19:15 03/03/22 19:15 Labs: Laboratory Results - last 24 hr 03/03/22 18:53: POC Glucose > 500 H* 03/03/22 19:10: Urine Color Straw, Urine Clarity Clear, Urine pH 6.0, Ur Specific [place] 1.010, Urine Protein Negative, Urine Glucose (UA) 1000 H, Urine Ketones 5 H, Urine Occult Blood Negative, Urine Nitrite Negative, Urine Bilirubin Negative, Urine Urobilinogen Normal, Ur Leukocyte Esterase Negative, Urine RBC 0 SEEN, Urine WBC 0 SEEN, Ur Squamous Epith Cells 0 SEEN, Urine Bacteria RARE, Urine Mucus 0 SEEN 03/03/22 19:10: POC Glucose > 500 H* 03/03/22 19:15: WBC 8.8, RBC 4.84, Hgb 15.6, Hct 43.4, MCV 89.7, MCH 32.2 H, MCHC 35.9, RDW Std Deviation 45.5 H, RDW Coeff of Patito 14.2, Plt Count 153, MPV 11.5, Immature Gran % (Auto) 0.300, Neut % (Auto) 67.2, Lymph % (Auto) 23.2, [place] % (Auto) 7.2, Eos % (Auto) 1.5, Baso % (Auto) 0.6, Absolute Neuts (auto) 5.9, Absolute Lymphs (auto) 2.04, Nucleated RBC % 0 03/03/22 19:15: Sodium 131 L, Potassium 3.9, Chloride 95 L, Carbon Dioxide 24.0, Anion Gap 12, BUN 9, Creatinine 1.00, Estim Creat Clear Calc 94.29, Est GFR (MDRD) Af Amer 103, Est GFR (MDRD) Non-Af 85, BUN/Creatinine Ratio 9.0 L, Glucose 545 H*, Calcium 8.9, Phosphorus 3.6, Magnesium 2.0 03/03/22 19:15: Ethyl Alcohol 103.0, Acetone Level NEGATIVE 03/03/22 : Troponin I High Sens 6, Lipase 284 Rhythm Strip Rhythm Strip: Sinus Rhythm Rate: 85 Ectopy: None Radiology Impression Chest X-Ray 03/03/22 19:30 IMPRESSION: Degenerative changes, as described above. No demonstrated acute cardiopulmonary process. Electronically Signed: Guillermo Perez DO at 20:13 EDT Reading Location ID and State: [facility] / [place] Tel [phone], Service support , Gallbladder Ultrasound 03/03/22 19:35 IMPRESSION: 1. Enlarged fatty infiltrated liver without mass. 2. Otherwise normal right upper quadrant abdominal ultrasound. There is no major interval change. Electronically Signed: Guillermo Perez DO at 20:30 EDT Reading Location ID and State: [facility] / [place] Tel [phone], Service support , Assessment & Plan Assessment/Plan (1) Hyperosmolar hyperglycemic state (HHS): PLAN: Plan The patient is a 46 y/o M w/ PMHx: Obesity, Diabetes mellitus type II, RONIT, Allergic Rhinitis, Former tobacco use, EtOH abuse (sober x 6 months, started drinking daily again 12/2021 tall boys, ~ 6-8 daily, recent 02/15/22 EtOH detoxification program admission) who presents to the [facility] ED on 03/03/22 with history of onset of abdominal discomfort, nausea and emesis with elevated blood sugars with history of hospitalization 3 weeks prior as noted for alcohol detox program at that time with polyuria and polydipsia prompting ED evaluation. #1. Suspected HHS w/ Hyperglycemia w/ Poorly Controlled w/ Diabetes mellitus type II: Most recent HgbA1c during recent admission 10%, initiated on insulin drip in the ED with 2L NS bolus and K administration. Will admit to the ICU given insulin drip usage, obtain sOSM level, check serial K+, glucose w/ IVF changes pending these levels, serial chemistry, transition to home SC regimen when gap closed w/ overlap on drip, nutrition consultation. Encouraged diet and insulin regimen compliance. From description of abdominal discomfort with cramping, nausea as well as emesis as patient reportedly has been now taking his metformin since he transition back to home potentially could be having GI side effects as result of the medication concurrently HHS. #2. EtOH Abuse, Impending Withdrawal: Will initiate and continue on protocol with taper course of Phenobarbital, scheduled gabapentin for seizure prophylaxis, as needed Catapres, Bentyl, Vistaril, IV fluids, IV antiemetics, Tylenol as needed for pain. Will consult Case management for assistance for transition to next level of rehabilitation care. Mag, phos normal, obtained in the ED. Maintain on CIWA protocol concurrently. #3.? Hypertension: Will continue recently initated losartan, PRN IV hydralazine. #4.? Chronic thrombocytopenia: Admission platelets 153, baseline noted to be primarily 120-130s, continue to trend. #5.? Obesity: Weight loss and lifestyle changes encouraged. #6.? RONIT: Does not use CPAP or BIPAP. #7.? DVT prophylaxis: SCDs, lovenox. Charges/Coding Visit Charges Inpatient E&M: 07012 Init Hosp L3
[2022-03-03 21:19] VITALS: BP 125/82; PULSE 85; RESP 16; O2SAT 97
[2022-03-03] MEDS: Potassium Chloride 10mEq/100mL 10 MEQ/100 ML IV.SOLN. 100 MEQ IV BOLUS ×2 (21:54→23:00)
[2022-03-03 22:04] VITALS: BP 144/83; PULSE 81; RESP 17; TEMP 36.8; O2SAT 98
[2022-03-03 22:22] LABS: Osmolality, Serum 334 mOsm/KG (275-295)
[2022-03-03 22:26] LABS: Bedside Glucose 451 mg/dL (74-106)
--- NOTE | 2022-03-03 22:32 | ED.RN ---
INSULIN DRIP ORDERED TO RUN AT 93.6ML/HR. ORDER DISCUSSED WITH DR. JACKMAN. ORDER CHANGED TO RUN AT 9.6ML.HR.
[2022-03-03 23:00] VITALS: BP 151/91; PULSE 86; RESP 15; O2SAT 98
[2022-03-03 23:24] VITALS: BMI 37.9
[2022-03-03 23:30] VITALS: BP 140/80; PULSE 83; RESP 18; TEMP 37.1; O2SAT 95
[2022-03-03] MEDS: Ondansetron ODT 4 MG Tablet 8 MG PO (23:44)
[2022-03-03] MEDS: Phenobarbital 32.4 MG Tablet 64.8 MG PO (23:44)
[2022-03-03] MEDS: 0.9% Normal Saline 1,000 ML 150 ML IV (23:44)
[2022-03-03 23:45] VITALS: BP 139/88; PULSE 79; RESP 15; O2SAT 97
[2022-03-04] VITALS (20 sets, daily range): BP systolic 120–164; BP diastolic 71–110; PULSE 57–84; RESP 16–23; TEMP 36.4–37.2; O2SAT 93–99
[2022-03-04 00:07] LABS: Anion Gap 7 (5-15); BUN 7 mg/dL (7-18); Calcium,Total 8.4 mg/dL (8.5-10.1); Chloride 100 mmol/L (98-107); Creatinine, Serum 0.78 mg/dL (0.70-1.30); EST Glomerular Filtration Rate 114 mL/min (>60); Est Glom Filt Rate - Afr Amer 138 mL/min (>60); Estimated Creatinine Clearance 120.89 ml/min; Glucose 280 mg/dL (74-106); Potassium 3.8 mmol/L (3.5-5.1); Sodium Level 134 mmol/L (136-145)
[2022-03-04] MEDS: Dext 5%-0.45% NS 1,000 ML 150 ML IV ×2 (01:00→06:51)
[2022-03-04 01:20] LABS: Bedside Glucose 269 mg/dL (74-106)
[2022-03-04] MEDS: Phenobarbital 32.4 MG Tablet 64.8 MG PO ×6 (03:09→23:12)
[2022-03-04 03:29] LABS: Absolute Lymphocyte Count 2.15 X10^3/uL (0.83-4.51); Absolute Neutrophil Count 4.8 X10^3/uL (2.0-7.7); Basophil# 0.04 X10^3/uL; Basophil% 0.5 % (0-1); Eosinophils% 2.6 % (0-5); Hematocrit 38.5 % (40-54); Hemoglobin 13.8 g/dL (13.0-16.5); Lymphocyte # 2.15 X10^3/ul (0.83-4.51); Lymphocyte % 27.5 % (19-41); Mean Corp Hgb Conc 35.8 g/dL (32-36); Mean Corpuscular Hgb 32.2 pg (27.0-32.0); Mean Platelet Vol. 10.9 fl (6.2-12.0); Monocyte# 0.64 X10^3/uL; Monocyte% 8.2 % (0-10); NRBC Flagged by Analyzer 0 % (0-5); Neutrophil # 4.78 X10^3/uL (2.7-7.7); Neutrophil % 60.9 % (47-70); Platelet Count 100 K/mm3 (150-450); RBC Distribution Width CV 14.2 % (11.6-14.6); RBC Distribution Width SD 45.7 fl (35.1-43.9); Red Blood Count 4.28 M/mm3 (4.6-6.2); White Blood Count 7.8 K/mm3 (4.4-11.0)
[2022-03-04 03:31] LABS: Bedside Glucose 232 mg/dL (74-106)
[2022-03-04 03:31] LABS: Bedside Glucose 246 mg/dL (74-106)
[2022-03-04 03:55] LABS: AST(SGOT) 71 U/L (15-37); Alanine Aminotransfer ALT/SGPT 130 U/L (16-61); Albumin, Serum 3.4 g/dL (3.2-5.0); Alkaline Phosphatase 105 U/L (45-117); Anion Gap 7 (5-15); BUN 7 mg/dL (7-18); BUN/Creat Ratio 10.1 RATIO (10-20); Chloride 101 mmol/L (98-107); Creatinine, Serum 0.69 mg/dL (0.70-1.30); EST Glomerular Filtration Rate 130 mL/min (>60); Est Glom Filt Rate - Afr Amer 158 mL/min (>60); Estimated Creatinine Clearance 136.65 ml/min; Globulin 3.3 g/dL (2.2-4.2); Glucose 231 mg/dL (74-106); Potassium 3.2 mmol/L (3.5-5.1); Protein, Total 6.7 g/dL (6.4-8.2); Sodium Level 136 mmol/L (136-145)
[2022-03-04] MEDS: Potassium Chloride 10mEq/100mL 10 MEQ/100 ML IV.SOLN. 100 MEQ IV BOLUS ×4 (04:35→08:27)
[2022-03-04 06:11] LABS: Bedside Glucose 224 mg/dL (74-106)
[2022-03-04 06:11] LABS: Bedside Glucose 189 mg/dL (74-106)
[2022-03-04] MEDS: 0.9% Normal Saline 1,000 ML 150 ML IV (08:30)
[2022-03-04 08:45] LABS: Bedside Glucose 190 mg/dL (74-106)
[2022-03-04 08:50] LABS: Bedside Glucose 188 mg/dL (74-106)
[2022-03-04] MEDS: Folic Acid 1 MG Tablet PO (09:07)
[2022-03-04] MEDS: Losartan Potassium 50 MG Tablet PO (09:08)
[2022-03-04] MEDS: Insulin Glargine-YFGN 100 UNIT/ML Pen 20 UNIT SC ×2 (09:08→21:30)
[2022-03-04] MEDS: Thiamine Hydrochloride 100 MG Tablet PO (09:08)
--- NOTE | 2022-03-04 10:39 | CASEMGMT ---
RN told INES there is an order for Addiction Medicine. INES spoke with patient and he said he does not need any resources nor does he need to talk with the surgery specialist. Patient said he has an appointment with [facility] MondayMarch 07 at 8a. He said the appt is with Rosanne. He wants to start the Vivitrol shots. INES spoke with physician regarding consult. Physician wanted to make sure patient had an appt at [facility]. INES called [facility] and confirmed patient has an appointment MondayMarch 07 at 8a with Coy. INES notified Dr Drew and he said the order for addiction medicine can be canceled. INES will notify RN. Fang Page TEST PREPARER CUTTING MACHINE TENDER
--- NOTE | 2022-03-04 10:55 | CASEMGMT ---
INES called ICU and notified STEPHEN Griffith that the order for addiction medicine can be canceled. Fang Page SPEECH COACH YOKE PRESSER
[2022-03-04 11:00] LABS: Anion Gap 5 (5-15); BUN 7 mg/dL (7-18); BUN/Creat Ratio 8.7 RATIO (10-20); Calcium,Total 8.4 mg/dL (8.5-10.1); Chloride 101 mmol/L (98-107); EST Glomerular Filtration Rate 110 mL/min (>60); Est Glom Filt Rate - Afr Amer 133 mL/min (>60); Estimated Creatinine Clearance 117.86 ml/min; Glucose 314 mg/dL (74-106); Potassium 5.3 mmol/L (3.5-5.1); Sodium Level 133 mmol/L (136-145)
--- NOTE | 2022-03-04 11:00 | CASEMGMT ---
Addendum entered by Alona Cuevas 03/04/22 11:53: Pt states he has been on insulin in the past and is comfortable w/self-administration, should he discharge home on Insulin. Pt denies need for education/teaching. Original Note: RN CM CNC TECHNICIAN CM to room to meet with patient for initial transition planning/care coordination assessment. RN CM introduced self and role at [facility].? Pt voices understanding and consents to assessment at this time.? Pt sitting up in chair in no distress at this time.? Pt is A/O at this time and answers all questions appropriately.?? Care providers, pharmacy, and demographics verified/updated at this time. Pt was just recently discharged from [facility]. He was admitted 02/15/22 for ETOH detox/RAMP program and discharged home 02/17 w/plans to f/u as an OP @ . He states he has been taking his medications as prescribed since discharge. Pt states the 1st available appt @ [facility] was 03/07 and he plans to go to this. He also has f/u appt w/Dr Smith scheduled for 03/16. PCP: Dr Smith Specialists: [facility] @ 8 AM. Preferred Pharmacy: [facility] Insurance: [employer] Prescription Benefit:?Yes Living Will/HPOA:? Pt does not currently have LW/HCPOA. Pt interested in completing HPOA while @ [facility]. Pt states he is still legally , but is from his and is in the process of getting a divorce. He would like his sig other, Ekta, to be his HPOA. INES Headley, made aware. Pt made aware, if INES unable to meet w/him while @ [facility], AD can be completed as an OP and he was given Graves Registration Specialist Rac card w/contact # to schedule an appt. He voices understanding. LNOK: See above. Pt also has 7 children. 5 are over the age of 18. Living Arrangements: Lives w/Ekta in mobile home w/5 steps to enter. Has some of his kids part-time. Independent. Works full-time. Transportation:?Pt states drives self and states no transportation concerns at this time.?Ekta also drives. DME: Has [employer] glucose monitoring system. He used to have PAP, but it was returned to [facility] d/t non-use. Pt states he had difficulty tolerating it. Pt states no need for further DME at this time.? HHC/SNF: No hx of either. No needs identified. Pt wishes to return home and states has no concerns with going home at time of discharge.? Pt states his last drink of ETOH was around 5 PM yesterday. CM to follow for any further discharge planning/needs.? Pt voices no further concerns/needs at this time.? Advised pt to ask for CM if any further questions/concerns/needs arise.? Voices understanding. PLAN:??Home w/ f/u appt @ [facility] on Monday, support of significant other, and discharge plans in place. Fabiana ALCANTAR RN CM
[2022-03-04] MEDS: Insulin Lispro 100 UNIT/ML INSULN.PEN SC ×3 (11:50→21:30)
[2022-03-04 12:05] LABS: Bedside Glucose 266 mg/dL (74-106)
--- NOTE | 2022-03-04 12:19 | PN.HOSP_ITS ---
Subjective Subjective She was seen and examined today in the ICU, he was on an insulin drip, his sugars have decreased, I made the decision to take him off the insulin drip and transfer him to [facility]. Patient states he is still drinking at home, he has an appointment on Monday with 180 which was verified today, he states that he feels comfortable going home this weekend if he does not have any symptoms of withdrawal. In the meantime, I am going to place him on long-acting insulin with sliding scale insulin for coverage. He is comfortable with giving himself injections. Objective Data Objective Data Vital Signs: Vital Signs Temp Pulse Resp BP Pulse Ox O2 Del Method 97.5 F L 65 16 149/97 H 99 Room Air 03/04/22 12:00 03/04/22 12:00 03/04/22 12:00 03/04/22 12:00 03/04/22 12:00 03/04/22 12:00 Oxygen Delivery Method Room Air Weight: 120.9 kg Body Mass Index (BMI) 37.9 Intake & Output: Intake and Output for Last 24 Hours 03/02/22 03/03/22 03/04/22 23:59 23:59 23:59 Intake Total 2108.8 / 2208.8 3584.8 / 3584.8 Output Total 1600 / 1600 Balance 2108.8 / 1808.8 1983.8 / 1983.8 Lab / Micro Data Result Diagrams: 03/04/22 03:10 03/04/22 10:30 Labs: Laboratory Results - last 24 hr 03/03/22 18:53: POC Glucose > 500 H* 03/03/22 19:10: Urine Color Straw, Urine Clarity Clear, Urine pH 6.0, Ur Specific [place] 1.010, Urine Protein Negative, Urine Glucose (UA) 1000 H, Urine Ketones 5 H, Urine Occult Blood Negative, Urine Nitrite Negative, Urine Bilirubin Negative, Urine Urobilinogen Normal, Ur Leukocyte Esterase Negative, Urine RBC 0 SEEN, Urine WBC 0 SEEN, Ur Squamous Epith Cells 0 SEEN, Urine Bacteria RARE, Urine Mucus 0 SEEN 03/03/22 19:10: POC Glucose > 500 H* 03/03/22 19:15: WBC 8.8, RBC 4.84, Hgb 15.6, Hct 43.4, MCV 89.7, MCH 32.2 H, MCHC 35.9, RDW Std Deviation 45.5 H, RDW Coeff of Patito 14.2, Plt Count 153, MPV 11.5, Immature Gran % (Auto) 0.300, Neut % (Auto) 67.2, Lymph % (Auto) 23.2, [place] % (Auto) 7.2, Eos % (Auto) 1.5, Baso % (Auto) 0.6, Absolute Neuts (auto) 5.9, Absolute Lymphs (auto) 2.04, Nucleated RBC % 0 03/03/22 19:15: Sodium 131 L, Potassium 3.9, Chloride 95 L, Carbon Dioxide 24.0, Anion Gap 12, BUN 9, Creatinine 1.00, Estim Creat Clear Calc 94.29, Est GFR (MDRD) Af Amer 103, Est GFR (MDRD) Non-Af 85, BUN/Creatinine Ratio 9.0 L, Glucose 545 H*, Calcium 8.9, Phosphorus 3.6, Magnesium 2.0 03/03/22 19:15: Ethyl Alcohol 103.0, Acetone Level NEGATIVE 03/03/22 19:15: Serum Osmolality 334 H 03/03/22 21:58: POC Glucose 451 H* 03/03/22 23:37: Sodium 134 L, Potassium 3.8, Chloride 100, Carbon Dioxide 27.0, Anion Gap 7, BUN 7, Creatinine 0.78, Estim Creat Clear Calc 120.89, Est GFR (MDRD) Af Amer 138, Est GFR (MDRD) Non-Af 114, BUN/Creatinine Ratio 9.0 L, Glucose 280 H, Calcium 8.4 L 03/03/22 23:38: POC Glucose 269 H 03/03/22 : Troponin I High Sens 6, Lipase 284 03/04/22 00:56: POC Glucose 232 H 03/04/22 01:59: POC Glucose 246 H 03/04/22 03:10: WBC 7.8, RBC 4.28 L, Hgb 13.8, Hct 38.5 L, MCV 90.0, MCH 32.2 H, MCHC 35.8, RDW Std Deviation 45.7 H, RDW Coeff of Patito 14.2, Plt Count 100 L, MPV 10.9, Immature Gran % (Auto) 0.300, Neut % (Auto) 60.9, Lymph % (Auto) 27.5, [place] % (Auto) 8.2, Eos % (Auto) 2.6, Baso % (Auto) 0.5, Absolute Neuts (auto) 4.8, Absolute Lymphs (auto) 2.15, Nucleated RBC % 0 03/04/22 03:10: Sodium 136, Potassium 3.2 L, Chloride 101, Carbon Dioxide 28.0, Anion Gap 7, BUN 7, Creatinine 0.69 L, Estim Creat Clear Calc 136.65, Est GFR (MDRD) Af Amer 158, Est GFR (MDRD) Non-Af 130, BUN/Creatinine Ratio 10.1, Glucose 231 H, Calcium 8.0 L, Total Bilirubin 0.80, AST 71 H, ALT 130 H, Alkaline Phosphatase 105, Total Protein 6.7, Albumin 3.4, Globulin 3.3, Al bumin/Globulin Ratio 1.0 03/04/22 03:15: POC Glucose 224 H 03/04/22 04:36: POC Glucose 189 H 03/04/22 05:53: POC Glucose 188 H 03/04/22 08:25: POC Glucose 190 H 03/04/22 10:10: Sodium Cancelled, Potassium Cancelled, Chloride Cancelled, Carbon Dioxide Cancelled, Anion Gap Cancelled, BUN Cancelled, Creatinine Cancelled, Estim Creat Clear Calc Cancelled, Est GFR (MDRD) Af Amer Cancelled, Est GFR (MDRD) Non-Af Cancelled, BUN/Creatinine Ratio Cancelled, Glucose Cancelled, Calcium Cancelled 03/04/22 10:30: Sodium 133 L, Potassium 5.3 H, Chloride 101, Carbon Dioxide 27.0, Anion Gap 5, BUN 7, Creatinine 0.80, Estim Creat Clear Calc 117.86, Est GFR (MDRD) Af Amer 133, Est GFR (MDRD) Non-Af 110, BUN/Creatinine Ratio 8.7 L, Glucose 314 H, Calcium 8.4 L 03/04/22 11:45: POC Glucose 266 H Micro: Microbiology 03/03/22 21:20 Nasal Secretion SARS-CoV-2 Antigen (Rapid) - Final Radiography Diagnostic Testing: Radiology Impression Chest X-Ray 03/03/22 19:30 IMPRESSION: Degenerative changes, as described above. No demonstrated acute cardiopulmonary process. Electronically Signed: Guillermo Perez DO at 20:13 EDT Reading Location ID and State: [facility] / [place] Tel [phone], Service support , Gallbladder Ultrasound 03/03/22 19:35 IMPRESSION: 1. Enlarged fatty infiltrated liver without mass. 2. Otherwise normal right upper quadrant abdominal ultrasound. There is no major interval change. Electronically Signed: Guillermo Perez, DO at 20:30 EDT Reading Location ID and State: [address] [place] [address] Tel [phone], Service support , Rhythm Strip Rhythm Strip: Sinus Rhythm Rate: 85 Ectopy: None Physical Exam Const alert, oriented x3, no apparent distress and healthy appearing General Appearance: cooperative, well kempt and well developed Orientation / Consciousness: awake, oriented to person, oriented to place and oriented to time HEENT normocephalic, head/scalp atraumatic and moist oral mucous membranes Eyes PERRL, EOMs intact bilaterally and conjunctivae normal Neck nuchal rigidity, supple, no JVD, thyroid normal and no carotid bruits General: trachea midline Resp normal respiratory effort, no retractions, no use of accessory muscles and clear to auscultation bilaterally Auscultation: Negative for rales, rhonchi or wheezes Cardio regular rate, regular rhythm, S1 normal heart sound, S2 normal heart sound, no murmurs, no rub and no gallops GI normal to inspection, nondistended, normoactive bowel sounds, soft to palpation, non-tender and non-distended Extremity no clubbing, cyanosis or edema Skin no rashes or lesions noted General Skin Exam: no breakdown Neuro oriented x3, CN's II-XII intact bilaterally, no focal motor deficits and no sensory deficits noted Sensorium / Orientation: awake and alert Speech: speech normal Psych affect normal Assessment & Plan Assessment/Plan (1) Hyperosmolar hyperglycemic state (HHS): PLAN: Plan 1. Hyperosmolar hyperglycemic state/uncontrolled type 2 diabetes-patient will be transferred to [facility] 2, he will be on Lantus insulin and sliding scale insulin for coverage, I have decided to resume his metformin also. #2 chronic alcoholism-patient shows no evidence of alcoholic withdrawal at this point, he will remain on phenobarbital and follow-up with 180 as an outpatient. #3 noncompliance with medical regimen-makes care, management, recovery, and prognosis difficult #4 essential hypertension-patient is on losartan Charges/Coding Visit Charges Inpatient E&M: 51323 Subs Hosp L2
--- NOTE | 2022-03-04 15:32 | NURSING ---
report called to med-surg transferred with belongings per wheelchair to 317, family aware
[2022-03-04] MEDS: metFORMIN HCl 500 MG Tablet PO (16:57)
[2022-03-04 17:20] LABS: Bedside Glucose 227 mg/dL (74-106)
[2022-03-04 21:56] LABS: Bedside Glucose 325 mg/dL (74-106)
[2022-03-05 01:29] VITALS: BP 108/67; PULSE 61; RESP 18; TEMP 36.6; O2SAT 98
[2022-03-05] MEDS: Phenobarbital 32.4 MG Tablet 64.8 MG PO ×2 (03:40→06:38)
[2022-03-05 06:32] VITALS: BP 140/83; PULSE 83; RESP 18; TEMP 36.4; O2SAT 99
[2022-03-05] MEDS: Insulin Lispro 100 UNIT/ML INSULN.PEN SC (06:43)
[2022-03-05 07:10] LABS: Bedside Glucose 248 mg/dL (74-106)
[2022-03-05] MEDS: Folic Acid 1 MG Tablet PO (09:19)
[2022-03-05] MEDS: Thiamine Hydrochloride 100 MG Tablet PO (09:20)
[2022-03-05] MEDS: Insulin Glargine-YFGN 100 UNIT/ML Pen 20 UNIT SC (09:20)
[2022-03-05] MEDS: metFORMIN HCl 500 MG Tablet PO (09:20)
[2022-03-05] MEDS: Losartan Potassium 50 MG Tablet PO (09:20)
[2022-03-05 09:47] VITALS: BP 126/87; PULSE 72; RESP 18; TEMP 37.1; O2SAT 96
--- NOTE | 2022-03-05 10:42 | DCINST_ITS ---
Discharge Instructions Diet Discharge Diet: 1800 Calorie Control Diet Activity Discharge Activity: Return to Normal Activity Weight Bearing Status: Full weight bearing Follow Up Care Test Results: Test results from this visit will be discussed in further detail at your follow- up appointment, if applicable. Discharge Plan Admission Admit Date/Time: 03/03/22 21:23 Primary Reason for Your Visit: uncontrolled type 2 diabetes Attending Provider: Miguel Drew Primary Care Provider: Indiana Smith Consulting Providers: Adriana Garcia Instructions Additional Instructions / Restrictions: Follow-up with 180 on Monday as scheduled Discharge Orders/Prescriptions Prescriptions: New insulin glargine-yfgn 100 unit/mL (3 mL) Insulin Pen 28 unit subcut BID Qty: 15 0RF phenobarbital 32.4 mg Tablet 32.4 mg PO TID Qty: 9 0RF Continued (DME) FreeStyle Test Strip See Rx Instructions .ROUTE .MEDSUPPLY Qty: 50 11RF Rx Instructions: check blood glucose daily (DME) lancets [FreeStyle Lancets] 28 gauge misc See Rx Instructions .ROUTE .MEDSUPPLY Qty: 50 11RF Rx Instructions: Check blood glucose daily for type 2 DM jthbxmxvpcjy-zfmf-opdfb acid 1 EACH tablet 1 ea PO DAILY losartan 50 mg tablet 50 mg PO DAILY Qty: 30 0RF (DME) pen needle, diabetic [Pen Needle] 31 gauge x 5/16 needle See Rx Instructions .ROUTE .MEDSUPPLY Qty: 1200 0RF Rx Instructions: use twice daily as directed for type 2 DM alcohol swabs [Alcohol Prep Pads] Pads, Medicated 1 pad topical TID Qty: 200 3RF (DME) blood-glucose meter [FreeStyle System Kit] Kit See Rx Instructions .ROUTE .MEDSUPPLY Qty: 1 0RF Rx Instructions: check blood glucose daily for type 2 DM Trulicity 0.75 mg/0.5 mL pen injector 0.75 mg subcut QWEEK Qty: 2 1RF Rx Instructions: monday x 2 weeks ago (DME) pen needle, diabetic [1st Tier Unifine Pentips] 32 gauge x 5/32 needle See Rx Instructions .ROUTE .MEDSUPPLY Qty: 100 3RF Rx Instructions: 4 times a day (DME) FreeStyle Colby 14 Day [place] Misc See Rx Instructions .ROUTE .MEDSUPPLY Qty: 1 0RF Rx Instructions: check blood glucose 4 times a day (DME) FreeStyle [place] 14 Day Sensor Kit See Rx Instructions .ROUTE .MEDSUPPLY Qty: 2 3RF Rx Instructions: As directed Changed metformin 500 mg tablet 1,000 mg PO BID Qty: 180 1RF Referrals / Follow Up: Indiana Smith MD [Primary Care Provider] - Within 1 Week Disposition Disposition (needs filled in before D/C Order can be placed): Home, Self Care
[2022-03-05 10:57] VITALS: BP 145/88; PULSE 81; RESP 18; TEMP 36.7; O2SAT 95
--- NOTE | 2022-03-05 11:01 | PCM.DC.SUM ---
Providers Date of Admission: 03/03/22 Date of Discharge: 03/05/22 Primary Care Physician: Dr. Indiana Smith MD Reason For Visit: HHS, ETOH ABUSE Diagnosis Discharge Diagnosis (1) Hyperosmolar hyperglycemic state (HHS): Status: Acute Code(s): E11.00 - Type 2 diabetes mellitus with hyperosmolarity without nonketotic hyperglycemic-hyperosmolar coma ([facility]) Plan 1. Hyperosmolar hyperglycemic state/uncontrolled type 2 diabetes-patient will be transferred to [place] [id number], he will be on Lantus insulin and sliding scale insulin for coverage, I have decided to resume his metformin also. #2 chronic alcoholism-patient shows no evidence of alcoholic withdrawal at this point, he will remain on phenobarbital and follow-up with 180 as an outpatient. #3 noncompliance with medical regimen-makes care, management, recovery, and prognosis difficult #4 essential hypertension-patient is on losartan #5 hypokalemia Medications at Discharge Home Medications multivitamin-ferrous fumarate-folic acid 18 mg-400 mcg tablet 1 ea PO DAILY health 10/06/20 blood sugar diagnostic (FreeStyle Test strips) #50 ea 06/09/21 alcohol swabs (Alcohol Prep Pads) 1 pad topical TID #200 ea 06/16/21 pen needle, diabetic 31 gauge x 16 (Pen Needle) #1,200 ea 06/16/21 lancets 28 gauge (FreeStyle Lancets) #50 ea 06/30/21 blood-glucose meter (FreeStyle System Kit) #1 ea 08/24/21 dulaglutide 0.75 mg/0.5 mL subcutaneous pen injector (Trulicity) 0.75 mg (0.5 mL) subcut QWEEK #2 mL 01/13/22 losartan 50 mg tablet 50 mg PO DAILY #30 tabs 02/17/22 flash glucose scanning reader (FreeStyle [place] 14 Day [place]) #1 ea 02/18/22 flash glucose sensor (FreeStyle Colby 14 Day Sensor kit) #2 ea 02/18/22 pen needle, diabetic 32 gauge x 5/32 (1st Tier Unifine Pentips) #100 ea 02/18/22 insulin glargine-yfgn 100 unit/mL (3 mL) subcutaneous pen 28 unit (0.28 mL) subcut BID #15 mL 03/05/22 metformin 500 mg tablet 1,000 mg PO BID diabetis #180 tabs 03/05/22 phenobarbital 32.4 mg tablet 32.4 mg PO TID #9 tabs 03/05/22 Hospital Course Operations None Procedures None Summary of Care Provided Minutes Spent on Discharge: 31 Hospital Course: This 46-year-old white male was seen in the emergency room at [facility] complaining of abdominal pain, nausea, and vomiting along with elevated blood sugars, patient has a history of type 2 diabetes. Patient also has a history of alcohol abuse and had been continuing to drink alcohol after he went through detox services at this hospital. Work-up in the emergency room included labs which showed normal CBC, chemistry profile showed an elevated glucose of 545, sodium was 131, anion gap was normal. Patient's ethyl alcohol level was 103. Patient was admitted to the ICU for short period of time and placed on an insulin drip, his blood sugars decreased and it was felt he could be transferred to [facility]. He was kept on a detox protocol for alcohol, patient had no symptoms of alcohol withdrawal during his hospitalization. Patient had a scheduled appointment with 180 on 03/07/2022 and he stated he was going to keep this appointment. On 03/05/2022, patient was seen and examined: On examination he appeared in good health and spirits. Vital signs as documented. Skin warm and dry and without overt rashes. Neck without JVD, neck was supple, trachea midline, thyroid was normal. Lungs clear bilaterally, normal air movement was noted. Heart exam notable for regular rhythm, normal sounds and absence of murmurs, rubs or gallops. Abdomen unremarkable and without evidence of organomegaly, masses, or abdominal aortic enlargement. Bowel sounds are present, abdomen is not distended. Extremities nonedematous, no cyanosis was noted, no clubbing was noted. Neuro: Cranial nerves II through XII are grossly intact, no focal motor deficits were noted, sensation to light touch and pinprick intact, motor exam 5/5 throughout. Psych: Patient is alert and oriented x3, he does not appear anxious or depressed, he does not appear agitated. Patient requested discharge home and I made the decision to give the patient another 2 days of phenobarb to take as an outpatient. Patient would be on Lantus insulin which she had been on before, he was also instructed to increase his metformin. Patient was discharged home in stable condition. Weight / BMI Weight Weight: 121.1 kg Body Mass Index (BMI) 37.9 ABG / Lab / Microbiology Data Result Diagrams: 03/04/22 03:10 03/04/22 10:30 Laboratory: Laboratory Results - last 24 hr 03/04/22 11:45: POC Glucose 266 H 03/04/22 16:54: POC Glucose 227 H 03/04/22 21:27: POC Glucose 325 H 03/05/22 06:37: POC Glucose 248 H Microbiology: Microbiology 03/03/22 21:20 Nasal Secretion SARS-CoV-2 Antigen (Rapid) - Final D/C Instructions Discharge Diet: 1800 Calorie Control Diet Weight Bearing Status: Full weight bearing Meaningful Use Info Meaningful Use Diagnoses (Choose all that apply): None applicable Discharge Plan Admission Admit Date/Time: 03/03/22 21:23 Primary Reason for Your Visit: uncontrolled type 2 diabetes Attending Provider: Miguel Drew Primary Care Provider: Indiana Smith Consulting Providers: Adriana Garcia Instructions Additional Instructions / Restrictions: Follow-up with 180 on Monday as scheduled Discharge Orders/Prescriptions Prescriptions: New insulin glargine-yfgn 100 unit/mL (3 mL) Insulin Pen 28 unit subcut BID Qty: 15 0RF phenobarbital 32.4 mg Tablet 32.4 mg PO TID Qty: 9 0RF Continued (DME) FreeStyle Test Strip See Rx Instructions .ROUTE .MEDSUPPLY Qty: 50 11RF Rx Instructions: check blood glucose daily (DME) lancets [FreeStyle Lancets] 28 gauge misc See Rx Instructions .ROUTE .MEDSUPPLY Qty: 50 11RF Rx Instructions: Check blood glucose daily for type 2 DM rjsuvivyqdeg-cwdi-qqvzl acid 1 EACH tablet 1 ea PO DAILY losartan 50 mg tablet 50 mg PO DAILY Qty: 30 0RF (DME) pen needle, diabetic [Pen Needle] 31 gauge x 5/16 needle See Rx Instructions .ROUTE .MEDSUPPLY Qty: 1200 0RF Rx Instructions: use twice daily as directed for type 2 DM alcohol swabs [Alcohol Prep Pads] Pads, Medicated 1 pad topical TID Qty: 200 3RF (DME) blood-glucose meter [FreeStyle System Kit] Kit See Rx Instructions .ROUTE .MEDSUPPLY Qty: 1 0RF Rx Instructions: check blood glucose daily for type 2 DM Trulicity 0.75 mg/0.5 mL pen injector 0.75 mg subcut QWEEK Qty: 2 1RF Rx Instructions: monday x 2 weeks ago (DME) pen needle, diabetic [1st Tier Unifine Pentips] 32 gauge x / needle See Rx Instructions .ROUTE .MEDSUPPLY Qty: 100 3RF Rx Instructions: 4 times a day (DME) FreeStyle Colby 14 Day [place] Misc See Rx Instructions .ROUTE .MEDSUPPLY Qty: 1 0RF Rx Instructions: check blood glucose 4 times a day (DME) FreeStyle [place] 14 Day Sensor Kit See Rx Instructions .ROUTE .MEDSUPPLY Qty: 2 3RF Rx Instructions: As directed Changed metformin 500 mg tablet 1,000 mg PO BID Qty: 180 1RF Referrals / Follow Up: Indiana Smith MD [Primary Care Provider] - Within 1 Week Disposition Disposition (needs filled in before D/C Order can be placed): Home, Self Care Charges/Coding Visit Charges Inpatient E&M: 67234 Disch Hosp
== END 2022-03-05 12:12 | disposition home or self-care (01) | DRG 420 ==
LOC: ED 19:12 → ICU 21:54 → MS3 03-04 15:49
PROVIDERS: Admitting Provider Family Medicine; Emergency Provider Emergency Medicine; PCP Internal Medicine; Visit Provider Internal Medicine
DX: E11.00 Type 2 diabetes mellitus with hyperosmolarity without nonketotic hyperglycemic-hyperosmolar coma (NKHHC) (principal); E87.1 Hypo-osmolality and hyponatremia; F10.20 Alcohol dependence, uncomplicated; I10 Essential (primary) hypertension; G47.33 Obstructive sleep apnea (adult) (pediatric); E87.6 Hypokalemia; Z87.891 Personal history of nicotine dependence; Z79.84 Long term (current) use of oral hypoglycemic drugs; Z91.19 Patient's noncompliance with other medical treatment and regimen; Z79.899 Other long term (current) drug therapy; E66.9 Obesity, unspecified; Z68.39 Body mass index [BMI] 39.0-39.9, adult
CPT/HCPCS: 71045; 76705; 80048; 80053; 81001; 82009; 82077; 82962; 83690; 83735; 83930; 84100; 84484; 85025; 87811; 93005; 97802; 99285; J7030; A4216; J2405; J7799

== ENCOUNTER → 2022-04-19 | Outpatient (CLI) | payer MEDICAID, SELFPAY ==
[2022-04-19 08:11] LABS: Absolute Lymphocyte Count 2.01 X10^3/uL (0.83-4.51); Absolute Neutrophil Count 5.2 X10^3/uL (2.0-7.7); Basophil# 0.04 X10^3/uL; Basophil% 0.5 % (0-1); Eosinophil# 0.35 X10^3/uL; Eosinophils% 4.2 % (0-5); Hematocrit 42.9 % (40-54); Lymphocyte # 2.01 X10^3/ul (0.83-4.51); Lymphocyte % 24.2 % (19-41); Mean Corpuscular Hgb 31.4 pg (27.0-32.0); Mean Corpuscular Volume 89.7 fL (80-94); Mean Platelet Vol. 11.7 fl (6.2-12.0); Monocyte# 0.66 X10^3/uL; NRBC Flagged by Analyzer 0 % (0-5); Neutrophil % 62.6 % (47-70); Platelet Count 124 K/mm3 (150-450); RBC Distribution Width SD 42.3 fl (35.1-43.9); Red Blood Count 4.78 M/mm3 (4.6-6.2); White Blood Count 8.3 K/mm3 (4.4-11.0)
[2022-04-19 08:40] LABS: AST(SGOT) 35 U/L (15-37); Alanine Aminotransfer ALT/SGPT 55 U/L (16-61); Albumin, Serum 3.9 g/dL (3.2-5.0); Alkaline Phosphatase 98 U/L (45-117); Anion Gap 9 (5-15); BUN 8 mg/dL (7-18); BUN/Creat Ratio 11.2 RATIO (10-20); Calcium,Total 8.6 mg/dL (8.5-10.1); Chloride 103 mmol/L (98-107); Cholesterol 118 mg/dL (200); Creatinine, Serum 0.71 mg/dL (0.70-1.30); EST Glomerular Filtration Rate 126 mL/min (>60); Est Glom Filt Rate - Afr Amer 152 mL/min (>60); Glucose 140 mg/dL (74-106); High Density Lipoprotein 29 mg/dL; Magnesium 1.9 mg/dL (1.6-2.6); PSA,Total - Annual Screen 0.57 ng/mL (0.00-4.00); Potassium 3.7 mmol/L (3.5-5.1); Protein, Total 7.9 g/dL (6.4-8.2); Sodium Level 140 mmol/L (136-145); Triglycerides 128 mg/dL; Very Low Density Lipoprotein 26 mg/dL (5-40)
[2022-04-19 08:54] LABS: Hemoglobin A1c 6.7 % (3.8-5.6)
== END | disposition home or self-care (01) ==
LOC: LAB 06:36
PROVIDERS: PCP Internal Medicine; Referring Provider Internal Medicine; Visit Provider Internal Medicine
DX: E66.9 Obesity, unspecified (principal); E11.9 Type 2 diabetes mellitus without complications; F10.10 Alcohol abuse, uncomplicated; G47.30 Sleep apnea, unspecified; Z12.5 Encounter for screening for malignant neoplasm of prostate
CPT/HCPCS: 84153; 36415; 80053; 80061; 83036; 83735; 85025; G0103

== ENCOUNTER → 2022-10-03 | Outpatient (CLI) | payer MEDICAID, SELFPAY ==
[2022-10-03 10:22] LABS: Absolute Lymphocyte Count 2.06 X10^3/uL (0.83-4.51); Basophil# 0.04 X10^3/uL; Basophil% 0.4 % (0-1); Eosinophil# 0.18 X10^3/uL; Hematocrit 45.2 % (40-54); Hemoglobin 15.6 g/dL (13.0-16.5); Lymphocyte # 2.06 X10^3/ul (0.83-4.51); Lymphocyte % 22.8 % (19-41); Mean Corp Hgb Conc 34.5 g/dL (32-36); Mean Corpuscular Volume 89.7 fL (80-94); Mean Platelet Vol. 11.7 fl (6.2-12.0); Monocyte% 7.8 % (0-10); NRBC Flagged by Analyzer 0 % (0-5); Neutrophil % 66.6 % (47-70); Platelet Count 142 K/mm3 (150-450); RBC Distribution Width CV 13.9 % (11.6-14.6); RBC Distribution Width SD 44.6 fl (35.1-43.9); Red Blood Count 5.04 M/mm3 (4.6-6.2)
[2022-10-03 10:58] LABS: Vitamin D,25 Hydroxy 35.2 ng/mL
[2022-10-03 11:08] LABS: AST(SGOT) 31 U/L (15-37); Alanine Aminotransfer ALT/SGPT 40 U/L (16-61); Alkaline Phosphatase 106 U/L (45-117); Anion Gap 5 (5-15); BUN 11 mg/dL (7-18); BUN/Creat Ratio 13.3 RATIO (10-20); Calcium,Total 8.9 mg/dL (8.5-10.1); Chloride 104 mmol/L (98-107); Cholesterol 128 mg/dL (200); Creatinine, Serum 0.82 mg/dL (0.70-1.30); EST Glomerular Filtration Rate 106 mL/min (>60); Est Glom Filt Rate - Afr Amer 128 mL/min (>60); Globulin 4.1 g/dL (2.2-4.2); Glucose 131 mg/dL (74-106); High Density Lipoprotein 35 mg/dL; Potassium 4.1 mmol/L (3.5-5.1); Protein, Total 8.1 g/dL (6.4-8.2); Sodium Level 138 mmol/L (136-145); Thyroid Stim Hormone (TSH) 1.87 uIU/mL (0.358-3.74); Triglycerides 102 mg/dL; Very Low Density Lipoprotein 20 mg/dL (5-40)
== END | disposition home or self-care (01) ==
PROVIDERS: PCP Internal Medicine; Referring Provider Internal Medicine; Visit Provider Internal Medicine
DX: E11.9 Type 2 diabetes mellitus without complications (principal); E66.9 Obesity, unspecified; R79.89 Other specified abnormal findings of blood chemistry; I10 Essential (primary) hypertension; E55.9 Vitamin D deficiency, unspecified; Z13.220 Encounter for screening for lipoid disorders
CPT/HCPCS: 36415; 80053; 80061; 82306; 83036; 84443; 85025

== ENCOUNTER 2022-10-11 08:55 | Day surgery (SDC) | payer MEDICAID, SELFPAY ==
[2022-10-11 09:17] VITALS: BP 149/99; PULSE 78; RESP 18; TEMP 36.4; O2SAT 99; BMI 38.4
[2022-10-11] MEDS: Lactated Ringers 1,000 ML 15 ML IV (09:46)
[2022-10-11 10:05] LABS: Bedside Glucose 122 mg/dL (74-106)
--- NOTE | 2022-10-11 10:14 | HP.PCM_ITS ---
History and Physical Date of Admission: 10/11/22 Intake Vital Signs ? 09/28/2307:15 Height 5 ft 10 in Weight: 268 lb 8 oz BMI 38.5 BP 120/83 H Blood Pressure Location Rt brachial Position Sitting Respiration 17 Pulse 70 Pulse SourceB Monitor Temp 96 F L Temp Source Temporal Pulse Oximetry (%) 97 Oxygen Delivery Method room air Intake Visit Reasons:?CYST ON BACK Chief Complaint: cyst on back Is patient in pain?: No Allergies No Known Allergies Allergy (Verified 09/28/22 08:16) Medications multivitamin-ferrous fumarate-folic acid 18 mg-400 mcg tablet 1 ea PO DAILY health 10/06/20 [History Confirmed 09/28/22] blood sugar diagnostic (FreeStyle Test strips) #50 ea 06/09/21 [Rx Confirmed 09/28/22] alcohol swabs (Alcohol Prep Pads) 1 pad topical TID #200 ea 06/16/21 [Rx Confirmed 09/28/22] pen needle, diabetic 31 gauge x 5/16 (Pen Needle) #1,200 ea 06/16/21 [Rx Confirmed 09/28/22] lancets 28 gauge (FreeStyle Lancets) #50 ea 06/30/21 [Rx Confirmed 09/28/22] blood-glucose meter (FreeStyle System Kit) #1 ea 08/24/21 [Rx Confirmed 09/28/22] flash glucose scanning reader (FreeStyle Colby 14 Day [place]) #1 ea 02/18/22 [Rx Confirmed 09/28/22] losartan 50 mg tablet 50 mg PO DAILY #90 tabs 03/16/22 [Rx Confirmed 09/28/22] dulaglutide 1.5 mg/0.5 mL subcutaneous pen injector (Trulicity) 1.5 mg (0.5 mL) subcut QWEEK #2 mL 07/12/22 [Rx Confirmed 09/28/22] pen needle, diabetic 32 gauge x 5/32 (1st Tier Unifine Pentips) #100 ea 08/29/22 [Rx Confirmed 09/28/22] flash glucose sensor (FreeStyle Colby 14 Day Sensor kit) #2 KITS 09/09/22 [Rx Confirmed 09/28/22] metformin 500 mg tablet 500 mg PO BID #180 tabs 09/21/22 [Rx Confirmed 09/28/22] naproxen 500 mg tablet 500 mg PO BID #14 tabs 09/22/22 [Rx Confirmed 09/28/22] doxycycline hyclate 100 mg tablet 100 mg PO BID #6 tabs 09/23/22 [Rx Confirmed 09/28/22] PFSH Medical History? Alcohol abuse Carpal tunnel syndrome Diabetes Former smoker Obesity Seasonal allergies Sleep apnea Tendinopathy of left rotator cuff Transaminitis Type 2 diabetes mellitus Surgical History? history of tibia/fibula surgery History of tonsillectomy Family History? Daughter Thyroid disorderFather Cancer ?? ? Unclear type.Mother [place]-Greg[place] syndromeOther Alcoholism in family Social History? household members:? spouse housing:? house current occupational status:? 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 Former smoker alcohol intake:? current details:? Detox program 02/15/2022, 6-8 tall boys daily, started again at discharge. substance use type:? does not use what type of physical activity do you participate in:? running and weight training frequency:? 3-4 times per week HPI HPI HPI: Patient is a 46-year-old male here for back abscess.? Patient has had drainage in the past and is growing and he has been started on antibiotics by his PCP. ROS General General: No weight change, appetite, fatigue, colon cancer, breast cancer or weakness HEENT HEENT: No difficulty swallowing, eye injury, eye surgery, swollen glands or hoarseness Endo Endocrine: Yes diabetes mellitus; No thyroid disease, thyroid cancer, Hair loss, heat intolerance or cold intolerance Skin Skin: No rash or changing moles Musc Musculoskeletal: No back problems, arthritis, rheumatoid arthritis, gout or joint pain Cardio Cardiovascular: No murmur, pacemaker, heart disease, atrial fibrillation, high blood pressure, heart attack, heart stent, palpitations, shortness of breat with exertion or chest pain Psych Psychiatric: No depression, anxiety or hearing voices Resp Respiratory: No shortness of breath, No sleep apnea, No cough, No COPD, No asthma, No emphysema and No wheezing Gastro Gastrointestinal: No abdominal pain, No nausea or vomiting, No diarrhea, No constipation, No blood in stool, No acid reflux, No hemorrhoids, No ulcers, No gallbladder problem and No black,tarry stools Sony Hematologic: No blood thinners, No blood disorders, No bleeding, No anemia and No blood clots Neuro Neurologic: No system reviewed and no additional complaints, except as documented, No as per HPI, No abnormal gait, No abnormal hearing, No abnormal movements, No abnormal speech, No behavioral changes, No burning sensations, No confusion, No convulsions, No disequilibrium, No dizziness, No localized weakness, No frequent falls, No headache(s), No lack of coordination, No loss of vision, No memory loss, No numbness, No other visual disturbances, No radicular pain, No restless legs, No sensory deficit, No syncope, No tingling, No tremor(s), No weakness and No other Exam Const General: cooperative Orientation: alert and oriented x3 HENMT Head: normal to inspection Neck Neck: normal visual inspection and full ROM Chest Chest palpation & inspection: normal inspection of the chest Resp Effort & Inspection: normal respiratory effort Auscultation: clear to auscultation bilaterally Cardio Rate: regular rate Rhythm: regular rhythm GI Inspection: non-distended Palpation: soft and nontender Skin Other: 2 large infected sebaceous cyst on the upper back Neuro General: patient alert and patient oriented x3 Extrem General: full ROM Psych Appearance: grossly normal Mental Status: mental status grossly normal Office Procedures I&D Provider Documentation Provider Documentation: The upper back was prepped and draped in usual sterile fashion in both of these areas which were close together were injected with local anesthetic.? An 11 blade scalpel was used to incise each of these and both of the cavities expressed purulent material.? Both of the cavities were broken down of loculations and then irrigated and then packed with iodoform gauze Alert Remy Alert Billing: Yes Incision and Drainage 15176 Complex/Multiple Procedure Time Out Time Out Informed consent given: Yes Consent signed: Yes Time out checklist: patient, procedure, site marked/identified, positioning of patient, supplies available, allergies confirmed and team agrees on procedure Time out staff in room: Yes Time out verified: Yes Time out date: 09/28/22 Time out time: 08:30 Assessment and Plan Assessment and Plan (1) Infected cyst of skin: ?Status:?Acute ?Plan: The patient had 2 large infected sebaceous cyst of the back.? They were both drained in the office and he is on antibiotics started by his PCP.? I would like to excise the cyst cavities in the operating room in a week once the infection has decreased a little bit.? I discussed this with the patient and he is in agreement.? I discussed the risks of bleeding and infection and possible recurrence.? I also discussed possibly having a place to drain.? Patient understands and we will schedule him for surgery. Eagle Anderson MD Pager: [facility] [address] [place] [address], [address] [place] [address] Office: I have examined the patient and the H&P has been reviewed. There are no clinical changes since date of exam.
--- NOTE | 2022-10-11 10:30 | CYST_PTH ---
PATIENT: JUAN MCLAIN Jr. LOC: [facility] [place] U#:[id number] AGE/SX: 46/M ROOM: RE10/11/[address]: Dr. Eagle Anderson MD : 1975 BED: DIS: 10/11/2022 SPEC #: [id number] RECD: 10/11/22 12:17 STATUS: ABEL MELTON #: [id number] JULY: 10/11/22 10:[address]: Eagle Andesron DEPT: SURGICAL PATHOLOGY RECD BY: Anh Schulz ENTERED: 10/11/22 12:58 SP TYPE: Cyst OTHR DR: Dr. Indiana Smith MD Tissues: CYST Procedures: Special Stain Group I Surgery Specimen Level III GMS Stain (control) HEADER OPERATION: Excision sebaceous cyst upper back PRE-OP DIAGNOSIS: Sebaceous cyst TISSUE SUBMITTED: Sebaceous cyst MICROSCOPIC DIAGNOSIS sebaceous cyst upper back, excision: Consistent with ruptured and inflamed epidermal inclusion cyst with acute and chronic inflammation, granulation tissue reaction and foreign body giant cell reaction. Focal superficial ulceration and associated fibrinopurulent exudate. See comment. CARMEN:alberto 10/12/2022 COMMENT Special stain for fungi is negative for organisms; matched control is appropriate. MICROSCOPIC DESCRIPTION Slides are reviewed. GROSS DESCRIPTION Received in fixative is one container labeled with the patient's name and designated sebaceous cyst. The specimen consists of a piece of skin with underlying tissue measuring 2.5 x 1.1 cm and up to 1.0 cm in thickness. Also present in the container are multiple pieces of soft tissue measuring in aggregate 5.5 x 4.0 x 1.5 cm. Motor Rebuilder sections are submitted in two cassettes. / CARMEN:alberto 10/11/2022 TC:5 CPT: 51208, 86043
[2022-10-11] MEDS: Bupivacaine 0.25% 30 ML Vial (11:33)
--- NOTE | 2022-10-11 11:50 | PCM.OPRPT ---
Report of Operation Date of Procedure: 10/11/22 Pre-Operative Diagnosis: Infected sebaceous cyst of the back x2 Post-Operative Diagnosis: 2 infected sebaceous cyst of the back Surgery/Procedure Performed:: Excision of 2 infected sebaceous cyst of the back Specimen's removed: Cyst cavities Drains: Sherrie drain Description of Procedure: Patient brought back to the operating room and general seizure was induced. The patient was placed in prone position and the back was prepped and draped. An elliptical incision was made including both openings that were draining purulent material. This was deepened to subcutaneous tissue and hemostasis was obtained with electrocautery. There was copious purulent area. The cyst cavities were excised using electrocautery and the cavity was irrigated and suctioned dry and hemostasis was obtained. Debridement was carried back all the way to clean tissue circumferentially. Next a Sherrie drain was placed into the incision and sutured to the ends of the incision using 3-0 Vicryl. The middle of the incision was then closed using 2-0 nylon sutures. Dressing was then applied. Patient tolerated the procedure well. The larger cyst was approximately 4 cm and the smaller cyst was approximately 3 cm. Admit VTE Documentation VTE Mechan Device Prophylaxis: SCD's
--- NOTE | 2022-10-11 11:52 | DCINST_ITS ---
Discharge Instructions Procedure General Surgery Diet Discharge Diet: Light diet - advance as tolerated Activity Discharge Activity: May Not Drive (No driving for 2 days or while taking narcotic pain meds.) and May Shower Lifting Restrictions: No lifting restrictions, may return to work when pain is tolerable Dressing / Incision Call your doctor if your incision/area has: Sudden Increased Bleeding, Increased Pain/ Swelling, Increased Redness, Foul Smelling Discharge and Swelling at the incision site Call your doctor if you observe: Fever of 101 or Higher Suture Line Care: Avoid Pulling/Pushing and Avoid Pinching/Bending Change Dressing in: 1 day (Change dressing as needed) Cleanse incision/area with: Soap & Water Follow Up Care Please Follow Up With: Eagle Anderson MD When: Please call to schedule 1 week follow up appointment. [phone] Test Results: Test results from this visit will be discussed in further detail at your follow- up appointment, if applicable. Discharge Plan Admission Attending Provider: Eagle Anderson Primary Care Provider: Indiana Smith Instructions Additional Instructions / Restrictions: Ibuprofen and Tylenol for pain, oxycodone as needed. Make 1 week appointment for removal of drain and 2-week appointment for removal of sutures Discharge Orders/Prescriptions Prescriptions: New oxycodone 5 mg tablet 5 - 10 mg PO Q6H PRN (Reason: pain) 5 Days Qty: 30 0RF Continued (DME) FreeStyle Test Strip See Rx Instructions .ROUTE .MEDSUPPLY Qty: 50 11RF Rx Instructions: check blood glucose daily (DME) lancets [FreeStyle Lancets] 28 gauge misc See Rx Instructions .ROUTE .MEDSUPPLY Qty: 50 11RF Rx Instructions: Check blood glucose daily for type 2 DM metformin 500 mg tablet 500 mg PO BID Qty: 180 1RF kpjzhrkhqdhq-bwki-atbod acid 1 EACH tablet 1 ea PO DAILY Trulicity 1.5 mg/0.5 mL pen injector 1.5 mg subcut HOLDER (DME) pen needle, diabetic [Pen Needle] 31 gauge x 5/16 needle See Rx Instructions .ROUTE .MEDSUPPLY Qty: 1200 0RF Rx Instructions: use twice daily as directed for type 2 DM (DME) blood-glucose meter [FreeStyle System Kit] Kit See Rx Instructions .ROUTE .MEDSUPPLY Qty: 1 0RF Rx Instructions: check blood glucose daily for type 2 DM (DME) FreeStyle Colby 14 Day [place] Misc See Rx Instructions .ROUTE .MEDSUPPLY Qty: 1 0RF Rx Instructions: check blood glucose 4 times a day losartan 50 mg tablet 50 mg PO DAILY Qty: 90 1RF (DME) pen needle, diabetic [1st Tier Unifine Pentips] 32 gauge x 5/32 needle See Rx Instructions .ROUTE .MEDSUPPLY Qty: 100 3RF Rx Instructions: 4 times a day (DME) FreeStyle Colby 14 Day Sensor Kit See Rx Instructions .ROUTE .COMPLEX Qty: 2 3RF Dose Instruction: DIRECTED Rx Instructions: DIRECTED doxycycline hyclate 100 mg tablet 100 mg PO BID Qty: 6 0RF Referrals / Follow Up: Indiana Smith MD [Primary Care Provider] - Disposition Disposition (needs filled in before D/C Order can be placed): Home, Self Care
[2022-10-11 12:00] VITALS: BP 119/77; BP 149/99; PULSE 97; RESP 17; TEMP 36.4; O2SAT 97
[2022-10-11 12:15] VITALS: BP 114/88; BP 149/99; PULSE 84; RESP 16; O2SAT 100
[2022-10-11 12:26] LABS: Bedside Glucose 118 mg/dL (74-106)
[2022-10-11 12:30] VITALS: BP 114/88; BP 149/99; PULSE 76; RESP 16; O2SAT 100
[2022-10-11 12:44] VITALS: BP 118/77; BP 149/99; PULSE 74; RESP 16; TEMP 35.8; O2SAT 100
[2022-10-11] MEDS: oxyCODONE 5 MG Tablet PO (12:52)
[2022-10-11 13:15] VITALS: BP 149/99
== END 2022-10-11 13:20 | disposition home or self-care (01) ==
LOC: SDC 08:55 → AC 08:57
PROVIDERS: PCP Internal Medicine; Referring Provider Surgery; Visit Provider Surgery
PROC: (CPT 11406; principal; 2022-10-11 10:20)
DX: L72.0 Epidermal cyst (principal); E11.9 Type 2 diabetes mellitus without complications; L02.212 Cutaneous abscess of back [any part, except buttock and flank]; G47.30 Sleep apnea, unspecified; I10 Essential (primary) hypertension; Z79.899 Other long term (current) drug therapy; Z79.84 Long term (current) use of oral hypoglycemic drugs; Z87.891 Personal history of nicotine dependence
CPT/HCPCS: 11406; 00300; 82962; 88304; 88312; J7120

== ENCOUNTER → 2023-09-14 | Outpatient (CLI) | payer MEDICAID, SELFPAY ==
[2023-09-14 09:54] LABS: Bacteria 0 SEEN /hpf (None Seen); Mucous, Urine 0 SEEN /hpf (<or=2+); Red Blood Cells-Urine 0 SEEN /hpf (0-5); Squamous Epithelial Cells - UA 0 SEEN /hpf (0-5); White Blood Cells 0 SEEN /hpf (0-5)
[2023-09-14 10:36] LABS: Color, Urine Yellow (Yellow); Glucose, Dipstick Normal (Normal); Ketone-Dipstick Negative (Negative); Leukocyte Esterase-Dipstick Negative /ul (Negative); Nitrite-Dipstick Negative (Negative); Occult Blood-Urine Negative /ul (Negative); Protein-Dipstick Negative (Negative); Urine Bilirubin Dipstick Negative (Negative); Urine Clarity Clear (Clear); Urine Urobilinogen 1 mg/dl (Normal)
[2023-09-14 10:36] LABS: Absolute Neutrophil Count 6.6 X10^3/uL (2.0-7.7); Basophil# 0.05 X10^3/uL; Basophil% 0.5 % (0-1); Eosinophil# 0.36 X10^3/uL; Eosinophils% 3.5 % (0-5); Hematocrit 45.9 % (40-54); Hemoglobin 15.6 g/dL (13.0-16.5); Lymphocyte % 23.6 % (19-41); Mean Corpuscular Hgb 29.3 pg (27.0-32.0); Mean Corpuscular Volume 86.3 fL (80-94); Mean Platelet Vol. 11.7 fl (6.2-12.0); Monocyte# 0.74 X10^3/uL; Monocyte% 7.3 % (0-10); NRBC Flagged by Analyzer 0 % (0-5); Neutrophil # 6.61 X10^3/uL (2.7-7.7); Neutrophil % 64.8 % (47-70); Platelet Count 169 K/mm3 (150-450); RBC Distribution Width SD 43.6 fl (35.1-43.9); Red Blood Count 5.32 M/mm3 (4.6-6.2); White Blood Count 10.2 K/mm3 (4.4-11.0)
[2023-09-14 11:02] LABS: Hemoglobin A1c 5.5 % (3.8-5.6)
[2023-09-14 11:11] LABS: Vitamin D,25 Hydroxy 34.6 ng/mL
[2023-09-14 11:28] LABS: AST(SGOT) 37 U/L (15-37); Alanine Aminotransfer ALT/SGPT 43 U/L (16-61); Albumin, Serum 4.2 g/dL (3.2-5.0); Alkaline Phosphatase 78 U/L (45-117); Anion Gap 4 (5-15); BUN 11 mg/dL (7-18); BUN/Creat Ratio 13.2 RATIO (10-20); Calcium,Total 9.2 mg/dL (8.5-10.1); Chloride 105 mmol/L (98-107); Cholesterol 123 mg/dL (200); Creatinine, Serum 0.84 mg/dL (0.70-1.30); EST Glomerular Filtration Rate 104 mL/min (>60); Est Glom Filt Rate - Afr Amer 126 mL/min (>60); Free T3 3.2 pg/mL (2.18-3.98); Globulin 4.2 g/dL (2.2-4.2); Glucose 109 mg/dL (74-106); High Density Lipoprotein 33 mg/dL; PSA,Total - Annual Screen 1.47 ng/mL (0.00-4.00); Protein, Total 8.4 g/dL (6.4-8.2); Sodium Level 138 mmol/L (136-145); T4 Free Direct 1.43 ng/dL (0.76-1.46); Thyroid Stim Hormone (TSH) 1.46 uIU/mL (0.358-3.74); Triglycerides 117 mg/dL; Very Low Density Lipoprotein 23 mg/dL (5-40)
== END | disposition home or self-care (01) ==
LOC: LAB 09:45
PROVIDERS: PCP Internal Medicine; Referring Provider Internal Medicine; Visit Provider Internal Medicine
DX: I10 Essential (primary) hypertension (principal); E11.65 Type 2 diabetes mellitus with hyperglycemia; E66.9 Obesity, unspecified; G47.30 Sleep apnea, unspecified; E55.9 Vitamin D deficiency, unspecified; Z12.5 Encounter for screening for malignant neoplasm of prostate; Z13.220 Encounter for screening for lipoid disorders
CPT/HCPCS: 84153; 36415; 80053; 80061; 81001; 82306; 83036; 84439; 84443; 84481; 85025; G0103

== ENCOUNTER → 2024-04-12 | Outpatient (CLI) | payer MEDICAID, SELFPAY ==
[2024-04-12 08:16] LABS: Absolute Lymphocyte Count 2.33 X10^3/uL (0.83-4.51); Absolute Neutrophil Count 5.3 X10^3/uL (2.0-7.7); Basophil# 0.06 X10^3/uL; Basophil% 0.7 % (0-1); Eosinophil# 0.33 X10^3/uL; Eosinophils% 3.8 % (0-5); Hematocrit 45.1 % (40-54); Hemoglobin 15.8 g/dL (13.0-16.5); Lymphocyte # 2.33 X10^3/ul (0.83-4.51); Lymphocyte % 26.8 % (19-41); Mean Corpuscular Hgb 30.2 pg (27.0-32.0); Mean Corpuscular Volume 86.2 fL (80-94); NRBC Flagged by Analyzer 0 % (0-5); Neutrophil # 5.26 X10^3/uL (2.7-7.7); Neutrophil % 60.4 % (47-70); Platelet Count 146 K/mm3 (150-450); RBC Distribution Width CV 13.7 % (11.6-14.6); RBC Distribution Width SD 42.8 fl (35.1-43.9); Red Blood Count 5.23 M/mm3 (4.6-6.2); White Blood Count 8.7 K/mm3 (4.4-11.0)
[2024-04-12 08:56] LABS: Vitamin B12 617 pg/mL (211-911); Vitamin D,25 Hydroxy 30.3 ng/mL
[2024-04-12 08:57] LABS: ALB/GLOB Ratio 1.1 RATIO (0.9-2.4); AST(SGOT) 37 U/L (15-37); Alanine Aminotransfer ALT/SGPT 37 U/L (16-61); Albumin, Serum 4.3 g/dL (3.2-5.0); Alkaline Phosphatase 77 U/L (45-117); Anion Gap 5 (5-15); BUN 13 mg/dL (7-18); BUN/Creat Ratio 13.7 RATIO (10-20); Calcium,Total 9.2 mg/dL (8.5-10.1); Chloride 104 mmol/L (98-107); Cholesterol 125 mg/dL (200); Creatinine, Serum 0.95 mg/dL (0.70-1.30); EST Glomerular Filtration Rate 90 mL/min (>60); Est Glom Filt Rate - Afr Amer 109 mL/min (>60); Globulin 3.9 g/dL (2.2-4.2); Glucose 109 mg/dL (74-106); High Density Lipoprotein 36 mg/dL; Magnesium 2.4 mg/dL (1.6-2.6); Potassium 3.8 mmol/L (3.5-5.1); Protein, Total 8.2 g/dL (6.4-8.2); Sodium Level 137 mmol/L (136-145); Triglycerides 91 mg/dL; Very Low Density Lipoprotein 18 mg/dL (5-40)
[2024-04-12 09:40] LABS: Hemoglobin A1c 5.1 % (3.8-5.6)
[2024-04-16 17:07] LABS: Vitamin B1, Thiamine 156.1 nmol/L (66.5-200.0)
== END | disposition home or self-care (01) ==
PROVIDERS: PCP Internal Medicine; Referring Provider Internal Medicine; Visit Provider Internal Medicine
DX: E55.9 Vitamin D deficiency, unspecified (principal); E11.9 Type 2 diabetes mellitus without complications; R20.2 Paresthesia of skin; R20.0 Anesthesia of skin; I10 Essential (primary) hypertension
CPT/HCPCS: 36415; 80053; 80061; 82306; 82607; 83036; 83735; 84425; 84443; 85025

== ENCOUNTER → 2024-05-01 | Outpatient (CLI) | payer MEDICAID, SELFPAY ==
--- NOTE | 2024-05-01 12:54 | NEURO_ITS ---
NCS and/or EMG Patient Report Ordering Doctor: Indiana Smith DATE OF SERVICE: 05/01/24 [place] presents with numbness and tingling in the right lower limb. Reports intermittent numbness in the left leg as well. He has ongoing lower back pain. He has a history of diabetes. Electrodiagnostic findings: Peroneal motor nerve measured at tibialis anterior shows normal latency, amplitude and conduction velocity. Right tibial motor nerve demonstrates normal distal latency and amplitude with reduced conduction velocity. Left tibial motor response demonstrates prolonged latency with normal amplitude and conduction velocity. Right sural latency. Normal left sural latency. Normal superficial peroneal response on the right side. Mildly prolonged left superficial peroneal latency. Prolonged H?reflex bilaterally. Prolonged right and left tibial F?waves. Needle EMG testing shows no evidence of denervation with normal motor unit action potentials. Electrodiagnostic impression: This is an abnormal study in the lower limbs 1. Electrodiagnostic findings suggestive of peripheral polyneuropathy, with mot or and sensory nerve involvement. There is evidence of demyelination and no evidence of axonal loss. 2. No electrodiagnostic evidence is noted for lumbosacral radiculopathy. Multi Select Codes Neurology Neurology Interp Codes: 31336-83 Musc test done w/n test comp (interp) (2) and 17883-50 Nrv cndj test 11-12 studies (interp)
== END | disposition home or self-care (01) ==
LOC: PSN 06:56
PROVIDERS: PCP Internal Medicine; Referring Provider Internal Medicine; Visit Provider Internal Medicine
DX: R20.0 Anesthesia of skin (principal); R20.2 Paresthesia of skin
CPT/HCPCS: 95886; 95912

== ENCOUNTER 2025-01-10 08:00 | Outpatient (CLI) | payer BC, MEDICAID, SELFPAY ==
[2025-01-10 09:04] LABS: Absolute Lymphocyte Count 1.85 X10^3/uL (0.83-4.51); Absolute Neutrophil Count 4.7 X10^3/uL (2.0-7.7); Basophil# 0.06 X10^3/uL; Basophil% 0.8 % (0-1); Eosinophil# 0.25 X10^3/uL; Eosinophils% 3.4 % (0-5); Hematocrit 42.8 % (40-54); Hemoglobin 15.3 g/dL (13.0-16.5); Lymphocyte # 1.85 X10^3/ul (0.83-4.51); Mean Corp Hgb Conc 35.7 g/dL (32-36); Mean Corpuscular Hgb 30.9 pg (27.0-32.0); Mean Corpuscular Volume 86.5 fL (80-94); Mean Platelet Vol. 11.1 fl (6.2-12.0); Monocyte# 0.55 X10^3/uL; Monocyte% 7.4 % (0-10); NRBC Flagged by Analyzer 0 % (0-5); Neutrophil # 4.66 X10^3/uL (2.7-7.7); Neutrophil % 63.1 % (47-70); Platelet Count 157 K/mm3 (150-450); RBC Distribution Width CV 14.6 % (11.6-14.6); RBC Distribution Width SD 45.7 fl (35.1-43.9); Red Blood Count 4.95 M/mm3 (4.6-6.2); White Blood Count 7.4 K/mm3 (4.4-11.0)
[2025-01-10 10:35] LABS: Cholesterol 127 mg/dL (<=200); High Density Lipoprotein 32 mg/dL; Low Density Lipoprotein Calc. 64 mg/dL; Triglycerides 155 mg/dL; Very Low Density Lipoprotein 31 mg/dL (5-40); cholesterol:hdl ratio screen 3.93
[2025-01-10 10:37] LABS: ALB/GLOB Ratio 1.6 RATIO (0.9-2.4); AST(SGOT) 44 U/L (<=37); Alanine Aminotransfer ALT/SGPT 33 U/L (<=46); Albumin, Serum 4.7 g/dL (3.5-5.0); Alkaline Phosphatase 79 U/L (40-129); Anion Gap 11 (5-15); BUN 7 mg/dL (4-19); BUN/Creat Ratio 8.8 RATIO (10-20); Carbon Dioxide 25.8 mmol/L (21.0-32.0); Chloride 101 mmol/L (98-108); Creatinine, Serum 0.81 mg/dL (0.70-1.20); EST Glomerular Filtration Rate 107 (>60); Globulin 2.9 g/dL (2.2-4.2); Glucose 113 mg/dL (70-99); PSA,Total - Annual Screen 0.94 ng/mL (0.02-4.00); Protein, Total 7.5 g/dL (5.9-8.4); Sodium Level 138 mmol/L (133-145); Total Bilirubin 0.86 mg/dL (0.00-1.30); Vitamin B12 597 pg/mL (180-914); Vitamin D,25 Hydroxy 19.9 ng/mL (30-100)
== END 2025-01-10 23:59 | disposition home or self-care (01) ==
PROVIDERS: PCP Internal Medicine; Referring Provider Internal Medicine; Visit Provider Internal Medicine
DX: E11.42 Type 2 diabetes mellitus with diabetic polyneuropathy (principal); I10 Essential (primary) hypertension; E66.9 Obesity, unspecified; R79.89 Other specified abnormal findings of blood chemistry; Z12.5 Encounter for screening for malignant neoplasm of prostate; E55.9 Vitamin D deficiency, unspecified; E53.8 Deficiency of other specified B group vitamins; R73.9 Hyperglycemia, unspecified; Z13.220 Encounter for screening for lipoid disorders
CPT/HCPCS: 36415; 80053; 80061; 82306; 82607; 83036; 84153; 84443; 85025; G0103